=== PATIENT | male | born 1935 | race Caucasian/White ===

== ENCOUNTER → 2016-12-16 | Outpatient (CLI) | payer OTHER ==
[~2016-12-16] MED LIST: ALFU1TAB2 PO; ASPI81TA28 PO; ATEN-175 PO; ATOR10TA82 PO; BENA1TAB53 PO; CHOL20007 PO; CYCL5TAB PO; ESOM20CA PO; FINA5TAB4 PO; FLUT0.0529 NAE; GLC/500 PO; GLYB5TAB8 PO; HMLI SC; INSDGI SC; INSU100I2 SQ; INSU3INJ3 SQ; LISI40TA PO; MELO7.5T6 PO; NRV/5 PO; NXM/40 PO; OMEP1POW2 PO; TAMS0.4C38 PO
--- NOTE | 2016-12-16 16:39 | DIAGNOSTIC IMAGING REPORT ---
LUMBAR SPINE 5 VIEWS CLINICAL HISTORY: Low back pain. FINDINGS: 5 views of the lumbar spine are correlated with abdominal CT dated 09/10/2014. The skeletal structures are osteopenic. There is no radiographic evidence of fracture or malalignment. Vertebral body height is maintained throughout the lumbar spine. There is minimal anterolisthesis at L3-L4 and minimal retrolisthesis at L4-L5. Alignment is otherwise preserved. The transverse and spinous processes appear intact. There is no evidence of spondylolysis. Anterior osteophytes are seen throughout. Advanced facet arthropathy is seen in the mid to lower lumbar region. Mild degenerative disc space narrowing is seen at all levels. The visualized sacrum and bony pelvis appear intact. Sclerotic change is noted in the sacroiliac joints. There is a nonobstructed abdominal bowel gas pattern, noting moderate colonic fecal retention. Advanced atherosclerotic calcification is seen in the abdominal aorta. IMPRESSION: 1. No acute bony abnormality is identified in the lumbosacral spine. 2. Osteopenia and spondylotic change as above. Dictated: 12/16/2016 4:24 PM Transcribed: 12/16/2016 4:38 PM [email or web address]_[email or web address] Electronically signed by: Chidi Nunez M.D. 12/16/2016 4:59 PM Dictated Date/Time: 12/16/2016 4:24 PM
== END | disposition home or self-care (01) ==
LOC: C.RADBC 16:06
PROVIDERS: ATTEND Family Medicine
DX: M54.5 Low back pain (principal)

== ENCOUNTER 2017-04-28 19:01 | Emergency (ER) | payer OTHER, BC ==
[~2017-04-28] VITALS: Ht 177.8 cm; Wt 100.0 kg
[~2017-04-28 19:01] MED LIST changes: -ALFU1TAB2 PO; -ASPI81TA28 PO; -ATOR10TA82 PO; +BENA1TAB19 PO; -BENA1TAB53 PO; -CHOL20007 PO; -CYCL5TAB PO; -ESOM20CA PO; -INSU100I2 SQ; -INSU3INJ3 SQ; -NRV/5 PO
[2017-04-28 19:06] VITALS: TEMP 36.6; Ht 177.8 cm; Wt 100.0 kg
[2017-04-28] MEDS ORDERED: INSDGI SC (19:34)
[2017-04-28] MEDS ORDERED: SODIUM CHLORIDE 0.9% 1000ML 1,000 ML IV STA (19:42)
[2017-04-28] MEDS ORDERED: SODIUM CHLORIDE 0.9% 1000ML 250 ML IV STA (19:42)
--- NOTE | 2017-04-28 19:48 | EMERGENCY ROOM VISIT NOTE ---
History Report prepared by [place]: Vinnie Aparicio Under the Supervision of: Dr. Renzo Mcguire M.D. First contact with patient: 19:31 Chief Complaint: HYPERTENSION Stated Complaint: UNSTEADY GAIT, CHEST PAIN,NAUSEA, BP 175/110 History of Present Illness The patient is a 81 year old male who presents to the Emergency Room with complaints of hypertension that began a couple hours ago. His pressure is currently 179/88. At this time, the patient was on his computer when he began to feel strange. He then became dizzy and unsteady on his feet like he was drunk. He is listing to his right. He has occasional problems with his equilibrium with standing quickly, but he did not do this today. He denies any vision problems, falls, of head trauma. He denies any unilateral weakness. He notes that he had epigastric pain earlier, but he took a Zantac and it seems to be helping. He has a history of GERD. Source of History: patient Onset: 3 hours ago Position: other (global) Symptom Intensity: 179/88 Quality: other (Hypertension) Timing: waxes/wanes Associated Symptoms: + chest pain (epigastric), No LOC, No headache, No weakness Note: He is dizzy and has an unsteady gait. Review of Systems See HPI for pertinent positives & negatives. A total of 10 systems reviewed and were otherwise negative. Past Medical & Surgical Medical Problems: (1) Diabetes (2) GERD (gastroesophageal reflux disease) (3) History of bronchitis (4) History of hypertension (5) HTN (hypertension) Old medical records were reviewed. Nurse's notes were reviewed and I agree with. Family History Cancer Diabetes mellitus Hypertension Social History Smoking Status: Never Smoker Alcohol Use: none Drug Use: none Marital Status: Housing Status: lives with family Occupation Status: retired Current/Historical Medications Scheduled Alfuzosin Hcl (Alfuzosin Hcl Er), 1 TAB PO DAILY Amlodipine Besylate (Amlodipine Besylate), 5 MG PO DAILY Aspirin (Aspirin Ec), 81 MG PO DAILY Atenolol (Tenormin), 100 MG PO DAILY Atorvastatin (Lipitor), 10 MG PO DAILY Cholecalciferol (Vitamin D3), 1 TAB PO DAILY Cyclobenzaprine Hcl (Flexeril), 5 MG PO HS Esomeprazole Magnesium (Nexium), 20 MG PO DAILY Finasteride (Proscar), 5 MG PO DAILY Insulin Detemir (Levemir Flextouch), 20 UNITS SQ Q12 Insulin Lispro (Human) (Humalog Kwikpen), 15-20 UNITS SQ DAILY Lisinopril (Zestril), 40 MG PO DAILY Allergies Coded Allergies: Diazepam (Verified Allergy, Intermediate, rash, 01/13/14) Morphine (Verified Allergy, Intermediate, hallucinations, 01/13/14) Physical Exam Vital Signs Date Time Temp Pulse Resp B/P (MAP) Pulse Ox O2 Delivery O2 Flow Rate FiO2 04/28/17 22:59 73 16 161/80 98 Room Air 04/28/17 22:22 72 16 167/83 96 Room Air 04/28/17 20:30 73 16 158/90 96 Room Air 04/28/17 19:25 69 04/28/17 19:06 36.6 69 18 169/80 97 Room Air Physical Exam General: Non-ill appearing older male in no acute distress. HEENT: Normal cephalic atraumatic. Pupils are equal round and reactive to light. Extraocular movements are intact. Oropharynx is pink with moist mucous membranes. No swelling of the mouth lips or tongue. Neck: Supple with a midline trachea. No meningeal signs or stiffness, no JVD or bruits. No Stridor. Chest: Clear to auscultation bilaterally. No wheezes or rhonchi. No increased work of breathing. Heart: regular rate and rhythm. Abdomen: Soft nontender, nondistended without rebound guarding or rigidity. Extremities: No cyanosis clubbing or edema. No calf tenderness or assymetry Spine/Back. Non tender to palpation. No CVA tenderness Skin: Good turgor without rashes. Neurologic exam: GCS 15. Awake, alert, and oriented x3. Cranial nerves two through 12 are intact. Motor and sensation are intact and symmetrical throughout. Finger to nose intact. No pronator drift. Chronic intention tremor to the LUE. Medical Decision & Procedures ER Provider Diagnostic Interpretation: Radiology results as stated below per my review and radiologist interpretation: CT OF THE HEAD WITHOUT CONTRAST CLINICAL HISTORY: Dizziness. COMPARISON STUDY: No previous studies for comparison. CT DOSE: 655.73 mGy.cm TECHNIQUE: Helical axial images of the head were obtained without IV contrast. Automated exposure control was utilized for the study. A dose lowering technique was utilized adhering to the principles of ALARA. FINDINGS: No acute intracranial hemorrhage, midline shift or mass effect is present. Ventricular system is normal for age. The basilar cisterns are patent. There are no extra-axial collections. Huerta-white differentiation is maintained. Mild white matter hypodensity suggests small vessel disease. There are no findings to suggest acute dural sinus thrombosis or acute territorial infarct. There are no significant calvarial abnormalities. Trace fluid within left mastoid air cells is noted. IMPRESSION: 1. No acute intracranial findings. 2. Trace fluid within the left mastoid air cells. Electronically signed by: Zaid Jhaveri M.D. 04/28/2017 8:32 PM Dictated Date/Time: 04/28/2017 8:30 PM CHEST ONE VIEW PORTABLE CLINICAL HISTORY: Chest pain. Nausea. COMPARISON STUDY: Chest radiograph February 07, 2014. FINDINGS: Lung volumes are normal. There is no consolidation to suggest pneumonia. There is no evidence of pulmonary edema. Cardiomediastinal silhouette is stable. No pneumothorax or pleural effusion is present. IMPRESSION: No acute cardiopulmonary findings. Electronically signed by: Zaid Jhaveri M.D. 04/28/2017 8:17 PM Dictated Date/Time: 04/28/2017 8:16 PM Laboratory Results 04/28/17 19:30 Red Blood Count 4.40, Mean Corpuscular Volume 85.9, Mean Corpuscular Hemoglobin 31.6, Mean Corpuscular Hemoglobin Concent 36.8, Mean Platelet Volume 10.0, Neutrophils (%) (Auto) 67.1, Lymphocytes (%) (Auto) 16.6, Monocytes (%) (Auto) 9.5, Eosinophils (%) (Auto) 5.6, Basophils (%) (Auto) 0.3, Neutrophils # (Auto) 4.66, Lymphocytes # (Auto) 1.15, Monocytes # (Auto) 0.66, Eosinophils # (Auto) 0.39, Basophils # (Auto) 0.02 04/28/17 19:30 Test 04/28/17 19:30 04/28/17 19:42 04/28/17 20:35 White Blood Count 6.94 K/uL (4.8-10.8) Red Blood Count 4.40 M/uL (4.7-6.1) Hemoglobin 13.9 g/dL (14.0-18.0) Hematocrit 37.8 % (42-52) Mean Corpuscular Volume 85.9 fL (80-100) Mean Corpuscular Hemoglobin 31.6 pg (25-34) Mean Corpuscular Hemoglobin Concent 36.8 g/dl (32-36) Platelet Count 171 K/uL (130-400) Mean Platelet Volume 10.0 fL (7.4-10.4) Neutrophils (%) (Auto) 67.1 % Lymphocytes (%) (Auto) 16.6 % Monocytes (%) (Auto) 9.5 % Eosinophils (%) (Auto) 5.6 % Basophils (%) (Auto) 0.3 % Neutrophils # (Auto) 4.66 K/uL (1.4-6.5) Lymphocytes # (Auto) 1.15 K/uL (1.2-3.4) Monocytes # (Auto) 0.66 K/uL (0.11-0.59) Eosinophils # (Auto) 0.39 K/uL (0-0.5) Basophils # (Auto) 0.02 K/uL (0-0.2) RDW Standard Deviation 41.6 fL (36.4-46.3) RDW Coefficient of Variation 13.2 % (11.5-14.5) Immature Granulocyte % (Auto) 0.9 % Immature Granulocyte # (Auto) 0.06 K/uL (0.00-0.02) Prothrombin Time 10.2 SECONDS (9.0-12.0) Prothromb Time International Ratio 1.0 (0.9-1.1) Activated Partial Thromboplast Time 25.5 SECONDS (21.0-31.0) Partial Thromboplastin Ratio 1.0 Anion Gap 8.0 mmol/L (3-11) Est Creatinine Clear Calc Drug Dose 50.7 ml/min Estimated GFR () 55.0 Estimated GFR (Non- 47.5 BUN/Creatinine Ratio 11.8 (10-20) Calcium Level 8.2 mg/dl (8.5-10.1) Total Bilirubin 0.6 mg/dl (0.2-1) Direct Bilirubin 0.2 mg/dl (0-0.2) Aspartate Amino Transf (AST/SGOT) 9 U/L (15-37) Alanine Aminotransferase (ALT/SGPT) 18 U/L (12-78) Alkaline Phosphatase 138 U/L (45-117) Total Creatine Kinase 49 U/L (39-308) Creatine Kinase MB 1.1 ng/ml (0.5-3.6) Total Protein 7.5 gm/dl (6.4-8.2) Albumin 3.4 gm/dl (3.4-5.0) Lipase 149 U/L (73-393) Beta-Hydroxybutyric Acid 1.10 mg/dL (0.2-2.81) Creatine Kinase MB Ratio (0-3.0) Bedside Troponin I < 0.030 ng/ml (0-0.045) Laboratory studies as stated above per my review. Medications Administered Medications (Trade) Dose Ordered Sig/Fely Route Start Time Stop Time Status Last Admin Dose Admin Sodium Chloride 250 ml @ 999 mls/hr Q16M STAT IV 04/28/17 19:42 04/28/17 19:57 DC 04/28/17 20:34 999 MLS/HR Sodium Chloride 1,000 ml @ 100 mls/hr Q10H STAT IV 04/28/17 19:42 04/29/17 00:23 DC 04/28/17 21:31 100 MLS/HR ECG Indication: other (HTN) Rate (beats per minute): 74 Rhythm: normal sinus Findings: no acute ischemic change, no ectopy ED Course 1930: Past medical records reviewed. The patient was evaluated in room A9B, and a complete history and physical examination were performed. 1941: Ordered Sodium Chloride 1000 ml @ 100 mls/hr IV, Sodium Chloride 250 ml @ 999 mls/hr IV 0: Upon reevaluation, the patient is resting. I discussed the results and treatment plan with him. He verbalized agreement of the treatment plan. The patient was discharged home. Medical Decision Differentials include, but are not limited to; vertigo, cardiac disease, arrhythmia, anemia, electrolyte or metabolic abnormality, CVA, and TIA. This patient comes in as described above he had an episode where he felt dizzy. He may also had some mild chest pain which he describes more like reflux. He did eat some food this evening and thinks he sent that off. He does tend to get dizzy at walking with a cane. He feeling better at present his blood pressure is also elevated at home during his stay, it did come down without treatment. He has a normal neurologic exam. He has no cerebellar signs. His normal finger to nose. EKG was obtained does not show anything to suggest acute coronary syndrome or arrhythmia. He has no acute electrode or metabolic abnormalities with exception of an elevated blood sugar in the 300s. He has no acidosis. He was able ambulate with his cane like at baseline. I talked to the patient's at length and told him we could observe him overnight but He strongly desires to go home as does his . I think it is reasonable discharge him home. I don't think this is likely acute cardiac or neurologic event but I encouraged him to come back if: chest pain, shortness of breath, numbness or weakness, any new problems or concerns. Medication Reconcilliation Current Medication List: was personally reviewed by me Blood Pressure Screening Patient's blood pressure: Elevated blood pressure Blood pressure disposition: Elevated BP felt to be situational Impression Primary Impression: Dizziness Additional Impressions: Hypertension Precordial chest pain Scribe Attestation The scribe's documentation has been prepared under my direction and personally reviewed by me in its entirety. I confirm that the note above accurately reflects all work, treatment, procedures, and medical decision making performed by me. Departure Information Dispostion Home / Self-Care Referrals Sydnee Castro ,Abigail.[email or web address]. Forms HOME CARE DOCUMENTATION FORM, IMPORTANT VISIT INFORMATION, WORK / SCHOOL INSTRUCTIONS Patient Instructions My [facility] Additional Instructions Rest Drink plenty of fluids Be careful when getting up and down REturn if:worsening of symptoms, chest pain, numbness or weakness, fever, increasing pain, any new problems or concerns Follow-up with your doctor tommorrow for recheck Problem Qualifiers
[2017-04-28] MEDS ORDERED: CYCL5TAB PO (20:05)
[2017-04-28] MEDS ORDERED: ATOR10TA88 PO (20:05)
[2017-04-28] MEDS ORDERED: ALFU1TAB2 PO (20:05)
[2017-04-28] MEDS ORDERED: ESOM20CA PO (20:09)
[2017-04-28] MEDS ORDERED: INSU3INJ3 SQ (20:09)
[2017-04-28] MEDS ORDERED: INSU100I2 SQ (20:09)
[2017-04-28] MEDS ORDERED: CHOL20007 PO (20:09)
[2017-04-28 20:10] LABS: BASO % 0.3 %; BASO ABS # 0.02 K/uL (0-0.2); COMPLETE YES; EOS % 5.6 %; HEMATOCRIT 37.8 % (42-52); IG% 0.9 %; LYMPH % 16.6 %; LYMPH ABS # 1.15 K/uL (1.2-3.4); MEAN CELL VOLUME 85.9 fL (80-100); MEAN CORPUSCULAR HEMOGLOBIN 31.6 pg (25-34); MEAN CORPUSCULAR HGB CONC 36.8 g/dl (32-36); MONO % 9.5 %; NEUT % 67.1 %; PLATELET COUNT 171 K/uL (130-400); WHITE BLOOD COUNT 6.94 K/uL (4.8-10.8)
--- NOTE | 2017-04-28 20:18 | DIAGNOSTIC IMAGING REPORT ---
CHEST ONE VIEW PORTABLE CLINICAL HISTORY: Chest pain. Nausea. COMPARISON STUDY: Chest radiograph February 07, 2014. FINDINGS: Lung volumes are normal. There is no consolidation to suggest pneumonia. There is no evidence of pulmonary edema. Cardiomediastinal silhouette is stable. No pneumothorax or pleural effusion is present. IMPRESSION: No acute cardiopulmonary findings. Electronically signed by: Zaid Jhaveri M.D. 04/28/2017 8:17 PM Dictated Date/Time: 04/28/2017 8:16 PM
[2017-04-28 20:20] LABS: BUN/CREATININE RATIO 11.8 (10-20); CALCIUM 8.2 mg/dl (8.5-10.1); CREATININE 1.4 mg/dl (0.60-1.40)
[2017-04-28 20:30] LABS: BETA-HYDROXYBUTYRATE 1.1 mg/dL (0.2-2.81); CKMB/CK RATIO 2.2 (0-3.0)
--- NOTE | 2017-04-28 20:33 | DIAGNOSTIC IMAGING REPORT ---
CT OF THE HEAD WITHOUT CONTRAST CLINICAL HISTORY: Dizziness. COMPARISON STUDY: No previous studies for comparison. CT DOSE: 655.73 mGy.cm TECHNIQUE: Helical axial images of the head were obtained without IV contrast. Automated exposure control was utilized for the study. A dose lowering technique was utilized adhering to the principles of ALARA. FINDINGS: No acute intracranial hemorrhage, midline shift or mass effect is present. Ventricular system is normal for age. The basilar cisterns are patent. There are no extra-axial collections. Huerta-white differentiation is maintained. Mild white matter hypodensity suggests small vessel disease. There are no findings to suggest acute dural sinus thrombosis or acute territorial infarct. There are no significant calvarial abnormalities. Trace fluid within left mastoid air cells is noted. IMPRESSION: 1. No acute intracranial findings. 2. Trace fluid within the left mastoid air cells. Electronically signed by: Zaid Jhaveri M.D. 04/28/2017 8:32 PM Dictated Date/Time: 04/28/2017 8:30 PM
[2017-04-28 20:39] LABS: PROTHROMBIN TIME (PATIENT) 10.2 SECONDS (9.0-12.0)
[2017-04-28] MEDS ORDERED: ASPI81TA28 PO (21:25)
[2017-04-28] MEDS ORDERED: NRV/5 PO (21:25)
[2017-04-28 22:59] VITALS: BP 161/80; PULSE 73; O2SAT 98
== END 2017-04-28 23:08 | disposition home or self-care (01) ==
LOC: C.EDB 19:02 → C.EDA 23:08
DX: I10 Essential (primary) hypertension (principal); R42 Dizziness and giddiness; R07.2 Precordial pain; K21.9 Gastro-esophageal reflux disease without esophagitis; E11.9 Type 2 diabetes mellitus without complications; Z79.82 Long term (current) use of aspirin; Z79.4 Long term (current) use of insulin; Z83.3 Family history of diabetes mellitus; Z82.49 Family history of ischemic heart disease and other diseases of the circulatory system

== ENCOUNTER 2020-02-03 23:04 | Inpatient (IN) ==
--- NOTE | 2020-02-03 23:45 | Emergency Department Note ---
ED Visit Note Physician Evaluation Note: I have personally evaluated and examined this patient. I agree with assessment and plan of Pamela Aldana PA-C. Patient with several days worsening confusion, weakness and hallucinations. notes some stuttering speech the last few days as well. Waxing and waning. Started a day after he began Baclofen for some back discomfort bilaterally. Back pain improving. Recent US reportedly with cysts on kidneys without evidence stone. Patient with history TIA and on ASA 81mg daily. Patient without fall, trauma, injuries. Labs with mild hyperglycemia and renal insufficiency. CT head/abdo unremarkable. Seems likely this is medication related though given continued symptoms will have hospitalist bring in for further management/treatment/evaluation. Avelino Aguilar MD
[2020-02-04 00:13] LABS: Basophils # (auto) 0.02 K/uL (0-0.2); Basophils % (auto) 0.2 %; Eosinophils # (auto) 0.26 K/uL (0-0.5); Eosinophils % (auto) 3.2 %; Hematocrit (blood only) 35.7 % (42-52); Hemoglobin 12.7 g/dL (14.0-18.0); Immature Granulocytes # (auto) 0.06 K/uL (0.00-0.02); Immature Granulocytes % (auto) 0.7 %; Lymphocytes # (auto) 1.11 K/uL (1.2-3.4); Lymphocytes % (auto) 13.7 %; Mean Corpuscular Hemoglobin 31.6 pg (25-34); Mean Corpuscular Hgb Conc 35.6 g/dL (32-36); Mean Corpuscular Volume 88.8 fL (80-100); Mean Platelet Volume 9.7 fL (7.4-10.4); Monocytes % (auto) 12.3 %; Neutrophils # (auto) 5.66 K/uL (1.4-6.5); Neutrophils % (auto) 69.9 %; Platelet Count 191 K/uL (130-400); RDW Standard Deviation 41.7 fL (36.4-46.3); Red Blood Count 4.02 M/uL (4.7-6.1); White Blood Count 8.11 K/uL (4.8-10.8)
[2020-02-04 00:20] LABS: Appearance Urine Clear (Clear); Bacteria Urine Automated Negative (Negative); Bilirubin Urine Negative (Negative); Blood Urine Negative (Negative); Color Urine Yellow; Glucose Urine UA 3+ (Negative); Ketones Urine Negative (Negative); Leukocyte Esterase Urine Trace (Negative); Nitrite Urine Negative (Negative); Protein Urine 2+ (Negative); RBC Urine Automated 0-4 /hpf (0-4); Specific Gravity Urine 1.022 (1.000-1.030); Urobilinogen Urine Negative (Negative); pH Urine 5.5 (4.5-7.5)
[2020-02-04 00:45] LABS: Amphetamines+Metham, Urine Neg (Neg); Barbiturates, Urine Neg (Neg); Benzodiazepine, Urine Neg (Neg); Cocaine, Urine Neg (Neg); MDMA (Ecstacy), Urine Neg (Neg); Methadone, Urine Neg (Neg); Opiate, Urine Neg (Neg); Phencyclidine, Urine Neg (Neg)
[2020-02-04 00:56] LABS: Alanine Aminotransferase 23 U/L (12-78); Albumin Globulin Ratio 0.9 (0.9-2); Albumin Level 3.5 gm/dl (3.4-5.0); Alkaline Phosphatase 132 U/L (45-117); Aspartate Aminotransferase 15 U/L (15-37); BUN Creatinine Ratio 14.1 (10-20); Bilirubin,Total 0.4 mg/dl (0.2-1); Blood Urea Nitrogen 28 mg/dl (7-18); Calcium 7.8 mg/dl (8.5-10.1); Carbon Dioxide 25 mmol/L (21-32); Chloride 110 mmol/L (98-107); Est GFR (African American) 35.2; Est GFR (Non-African American) 30.4; Glucose 332 mg/dl (70-99); Magnesium 1.9 mg/dl (1.8-2.4); Potassium 4.6 mmol/L (3.5-5.1); Sodium 142 mmol/L (136-145); Total Protein 7.5 gm/dl (6.4-8.2); Troponin I < 0.015 ng/ml (0-0.045)
[2020-02-04] MEDS ORDERED: SODIUM CHLORIDE 0.9% 1000ML 1,000 ML IV ONE (00:58)
[2020-02-04 01:27] LABS: Beta-Hydroxybutyrate 1.24 mg/dl (0.2-2.81)
--- NOTE | 2020-02-04 02:19 | History & Physical Report ---
Date of Service February 04, 2020 Assessment & Plan (1) Toxic encephalopathy: Barney is an 84-year-old male with a past medical history of insulin- dependent type 2 diabetes, stage III chronic kidney disease, MGUS, GERD, BPH, and hypertension who presents with worsening confusion and altered mental status after starting baclofen 3 days prior to admission. Altered mental status suspect 2/2 toxic encephalopathy of baclofen Patient with abnormal speech prosody, but alert and oriented x3 and thought process is goal-directed. No focal neurologic deficits and otherwise normal neurologic exam CThead with no acute findings, symptoms have been present for greater than 48 hours. Low suspicion for stroke pathology Urine tox negative, UA does not appear infected, CO2 normal Hold baclofen, fluid support for mild ANA as below CMP daily Follow clinically. Avoid sedating/narcotic medications Back pain 2/2 musculoskeletal strain Hold baclofen Avoid narcotics at this time 2/2 potential to worsen mental status Tylenol 500 mg every 4 hours as needed Lidocaine patch, alternate with K pad Type 2 diabetes mellitus On insulin therapy A1c last month 7.2 -Glucose on admission 331, no increased anion gap. Patient missed his evening coverage Aspart sliding scale, goal 1001 40, correction factor 30, carb ratio 1-10 Glargine 13 units twice daily BSG check with coverage once on floor Fluid support as below Glucose checks AC/at bedtime Beta hydroxybutyrate pending but low suspicion for HHS/DKA ANA on CKD Creatinine acutely elevated to 1.99 on admission from baseline of approximately 1.5 [employer] Lasix and Spironolactone held Received 1 L normal saline in ED NSS 100 overnight BMP every morning GERD Convert Nexium to Protonix HLD/HTN Continue atorvastatin 20 mg daily Continue amlodipine 10 mg daily Continue metoprolol succinate 50 mg daily BPH with LUTS Continue Flomax 0.4 mg daily Disposition: Obs to Med/surgical Diet: Carb consistent DVT prophylaxis: SCDs, heparin 5000 every 12 CODE STATUS: Full code, discussed with patient and (2) Type II diabetes mellitus with complication: (3) Stage III chronic kidney disease: (4) MGUS (monoclonal gammopathy of unknown significance): (5) Hiatal hernia: (6) GERD without esophagitis: (7) BPH with obstruction/lower urinary tract symptoms: (8) HTN (hypertension): History of Present Illness Chief Complaint: [facility] Primary Care Provider: Rodríguez Rodriges DO Barney is an 84-year-old male with a past medical history of insulin-dependent type 2 diabetes, stage III chronic kidney disease, MGUS, GERD, BPH, and hypertension who presents with worsening confusion and altered mental status after starting baclofen 3 days prior to admission. Barney is seen at the bedside with his present. They report that Barney was seen by nephrology for left back/flank pain on (3 days prior to admission). He had been lifting and twisting prior, and was focally tender to palpation. He was seen by nephrology who felt his pain was not consistent with renal disease, and he was prescribed baclofen for muscle spasm/pain. He took 2 doses of baclofen 10 mg on , 3 doses on Wednesday, and 1 dose (his last dose) Wednesday morning at 8 AM prior to admission. Over this time. He became increasingly confused and patient reports it feels like "being drunk ". His reports that he was having difficulty articulating himself, but did not appear to have any focal weakness. He has a history of TIA in 1989, so they were concerned about potential stroke. He was getting worse up until mid Wednesday, they report he seems to be improving at time of ER evaluation. He denies hallucinations, falls, presyncope, syncope, chest pain. He is at type II diabetic, and notes that his blood sugar earlier in the evening was 332 which is likely because he ate and did not cover with his short-term insulin. His reports that he normally misses his midday insulin dose and often will not eat at that time because he is busy. Medical history: Reviewed Surgical history: Reviewed Medications: Reviewed Allergies: Reviewed Social: Remote rare cigar use, otherwise no tobacco use. Denies alcohol and recreational drug use. Lives at home with his . CODE STATUS: Full code, discussed with patient and his Allergies Allergy/AdvReac Type Severity Reaction Status Date / Time diazepam Allergy Intermediate rash Verified 02/03/20 23:42 morphine Allergy Intermediate hallucinati Verified 02/03/20 23:42 ons Home Medications Home Medications Medication Instructions Recorded Confirmed Type blood sugar diagnostic #10 ea 01/05/19 01/31/20 History blood sugar diagnostic #10 ea 01/05/19 01/31/20 History albuterol sulfate 90 mcg/actuation See Rx Instructions INHALATION Q4H 03/28/19 02/03/20 History aerosol inhaler PRN gm aspirin 81 mg tablet 81 mg PO DAILY tab 03/28/19 02/03/20 History esomeprazole magnesium 20 mg 20 mg PO DAILY cap 03/28/19 02/03/20 History capsule,delayed release finasteride 5 mg tablet 5 mg PO DAILY #90 tab 03/28/19 02/03/20 History lisinopril 40 mg tablet 40 mg PO DAILY #90 tab 03/28/19 02/03/20 History diaper,brief,adult,disposable #60 ea 05/02/19 01/31/20 Rx insulin lispro 100 unit/mL 25 units SUBCUT QAM #30 ml 12/08/19 02/03/20 Rx subcutaneous pen amlodipine 10 mg tablet 10 mg PO DAILY #90 tab 12/28/19 02/03/20 Rx ferrous fumarate-vitamin C 1 tab PO DAILY PRN 12/28/19 02/03/20 History fluticasone propionate 44 2 puffs INH DAILY gm 12/28/19 02/03/20 History mcg/actuation HFA aerosol inhaler furosemide 40 mg tablet 40 mg PO DAILY #90 tab 12/28/19 02/03/20 Rx metoprolol succinate 50 mg 50 mg PO DAILY tab 12/28/19 02/03/20 History tablet,extended release 24 hr multivitamin 1 tab PO DAILY 12/28/19 02/03/20 History sertraline 50 mg tablet 50 mg PO DAILY 12/28/19 02/03/20 History spironolactone 25 mg tablet 25 mg PO DAILY #90 tab 01/02/20 02/03/20 Rx atorvastatin 20 mg tablet 20 mg PO QPM #90 tab 01/15/20 02/03/20 Rx insulin glargine 100 unit/mL (3 See Rx Instructions SQ .COMPLEX 01/15/20 02/03/20 Rx mL) subcutaneous pen #30 ml tamsulosin 0.4 mg capsule 0.8 mg PO DAILY #60 cap 01/15/20 02/03/20 Rx terbinafine HCl 250 mg tablet 250 mg PO DAILY #42 tab 01/15/20 02/03/20 Rx varicella-zoster [id number] (PF) 50 0.5 ml IM .COMPLEX #1 ea 01/15/20 01/31/20 Rx mcg/0.5 mL IM susp, kit baclofen 10 mg tablet 10 mg PO TID PRN #90 tab 02/01/20 02/03/20 Rx Past Med/Surg History Medical History Anemia (Inactive) 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 (Inactive) Cardiomegaly (Inactive) Erectile dysfunction (Chronic) Fatty liver (Inactive) GERD without esophagitis (Chronic) Hiatal hernia (Chronic) HTN (hypertension) (Chronic) Low back pain (Inactive) MGUS (monoclonal gammopathy of unknown significance) (Chronic) Osteopenia of spine (Inactive) Stage III chronic kidney disease (Chronic) Type II diabetes mellitus with complication (Chronic) Vitamin D deficiency (Chronic) Surgical History History of appendectomy History of cataract surgery History of incisional hernia repair History of inguinal hernia repair History of laminectomy History of lumpectomy History of partial colectomy Social History Preferred Language: Portuguese Professor Of Counseling Required: No Beliefs That Will Affect Care: None marital status: Current Living Situation: Spouse current occupational status: retired current occupation: Lives 6 months in [place]. Former [employer]. [place] [employer] Other Information That Helps Us Care for You: No Feels Safe at Home: Yes Safety Concerns: Feels Safe At This Time Smoking Status: Former smoker Tobacco Type: cigarettes, pipe and cigars ; Age Started Using Tobacco: 19 ; Age Quit Using Tobacco: 19 ; Do You Dip or Chew Tobacco: No ; Second Hand Exposure: No ; Tobacco Cessation Education Requested by Patient: No Hx Alcohol Use: No Hx Substance Use: No Childhood Exposure to Second-Hand Smoke: No Dental Care, Regularly: Yes Physical Activity Frequency: Does not Exercise Seatbelt Use: sometimes Sunscreen Use: No Review of Systems Review of Systems: Constitutional: Denies fever, chills, malaise. Endorses 'drunk-like feeling' Eyes: Denies double vision, vision change ENT: Denies ear pain, sore throat, congestion Cardiovascular: Denies chest pain, chest pressure, palpitations, extremity swelling Respiratory: Denies shortness of breath, cough, sputum production, difficulty breathing. Endorses intermittent wheezing Gastrointestinal: Denies abdominal pain, nausea, vomiting, constipation, diarrhea. Endorses abdominal bloating Genitourinary: Denies pain with urination, urinary urgency, urinary frequency Musculoskeletal: Denies weakness, joint aches/pain. Endorses L flank pain. Integumentary:Denies rash, lesions, bruising Neurological: Denies headache, numbness, tingling, focal weakness Physical Exam Physical Exam: General: A&Ox3. NAD. Cooperative. Speech with abnormal prosody, but goal directed. HEENT: Atraumatic, normocephalic. See neuro exam below. Pulm: Intermittent upper airway wheeze, otherwise CTAB A&P. -rales, -rhonchi. Symmetrical chest rise. No increase work of breathing. No respiratory distress. Cardiac: RRR, -mrg. Radial pulses intact and symmetrical. Abdominal:Softly distended, typanitic to percussion. BS present. CN II: Visual [place] are full to confrontation. Pupils are equal and react to light and accomidation. Visual acuity grossly intact. CN III, IV, : At primary gaze, there is no eye deviation. EoM intact without nystagmus. No visual field cuts. CN V: Facial sensation is intact to soft touch in all 3 divisions bilaterally. CN VII: No facial asymmetry, full strength to eyebrow raise, smile, eye close, and cheek puff. CN VII: Hearing is grossly intact. CN IX, X: Palate elevates symmetrically. Phonation is normal without dysarthria, speech with abnormal prosody as above. CN XI: Head turning and shoulder shrug are intact CN XII: Tongue protrudes midline. Sensory: Light touch intact in upper and low extremities without deficit or asymmetry. Strength: RUE: elbow flexion/extension, finger flexion/extension, service trainer strength, interosseous 5/5 LUE: elbow flexion/extension, finger flexion/extension, service trainer strength, in terosseous 5/5 RLE: Hip flexion, ankle plantar flexion/dorsiflexion 5/5 LLE: Hip flexion, ankle plantar flexion/dorsiflexion 5/5 Coordination: Rapid alternating movements and fine finger movements are intact. Results & Data Results & Data ([facility]) Vital Signs (Past 12 Hours) Vital Signs Temp Pulse Resp BP Pulse Ox 07/19/20 01:00 81 18 162/82 H 97 02/04/20 00:30 73 20 140/78 98 02/04/20 00:12 80 20 172/85 H 97 02/03/20 23:06 36.8 C 85 20 155/77 H 95 Code Status & VTE Plan VTE Prophylaxis Plan VTE Prophylaxis will be ordered: Yes Supervising Physician Co-Signing Physician Notes Attending addendum: I have physically seen this patient, have supervised the medical residents activities, and agree with the H&P unless as otherwise noted. Assessment and Plan: Toxic encephalopathy/baclofen adverse reaction- CT of head negative. No further neuroimaging needs to be performed. Urine drug screen negative IV fluids. Follow clinical examination Diabetes mellitus type 2- Insulin glargine 13 units subcu twice daily Placed on Accu-Cheks before meals and at bedtime with NovoLog coverage per scale A1c last month was 7.2 IV fluids as noted above. ANA on CKD- Hold diuretics overnight, furosemide and spironolactone. Status post 1 L normal saline in ED, will continue NSS at 100 mils per hour overnight. Repeat BMP in the a.m. Hyperlipidemia- Continue atorvastatin 40 mg daily Check a fasting lipid panel if not done within the past 6 months Hypertension- Continue continue amlodipine 10 mg daily and metoprolol succinate ER 50 mg daily with hold parameters Remaining orders and notations as noted. Resident Activity Tracking Resident Involvement: Resident Care Provided Care Provided: Adult Hospital Medicine (1) HTN (hypertension) Hypertension type: essential hypertension Qualified Code(s): I10 - Essential (primary) hypertension
[2020-02-04] MEDS ORDERED: GLUCOSE 10 TABS/TUBE PO PRN (02:44)
[2020-02-04] MEDS ORDERED: DEXTROSE 50% 50 ML SYRINGE IV PRN (02:44)
[2020-02-04] MEDS ORDERED: CARBOHYDRATES FOR HYPOGLYCEMIA PO PRN (02:44)
[2020-02-04] MEDS ORDERED: ACETAMINOPHEN 325 MG TAB PO PRN (02:44)
[2020-02-04] MEDS ORDERED: ALBUTEROL HFA 8 GM INHALER INH PRN (02:44)
[2020-02-04] MEDS ORDERED: GLUCOSE 40% GEL 15 GM TUBE PO PRN (02:44)
[2020-02-04] MEDS ORDERED: GLUCAGON FOR INJ 1 MG VIAL SQ PRN (02:44)
[2020-02-04] MEDS ORDERED: FERROUS FUMARATE/ASCORBIC ACID 65 MG CAPCR PO PRN (02:44)
--- NOTE | 2020-02-04 03:15 | Emergency Department Note ---
History of Present Illness General Chief complaint: Altered Mental Status Stated complaint: ALLERGIC REACTION TO MEDICATION Time Seen by Provider: 02/03/20 23:12 Source: patient Mode of arrival: ambulatory Limitations: no limitations History of Present Illness Maximum Pain Intensity: 7 This patient is an 84-year-old male who presents to the emergency department for evaluation of altered mental status. Patient states that earlier this week, he was having some pain in the left back. He had a visit with his machine edge bander, Dr. Malave, who felt that the pain was musculoskeletal and prescribed him baclofen 10 mg. He took 2 pills 2 days ago, 3 pills yesterday and 1 pill today. Last dosage was about 14 hours ago. He and his report that over the past 1 day, he has been disoriented, off balance and hallucinating. His initially noticed some slurred speech but now states that the patient seems to be having some trouble finding his words. He has been staggering while walking and having trouble keeping his balance. He states that he is seeing things and describes this like he is "watching 10 different movies." He states that he feels like he is in slow motion. He has been sleeping for short periods of time and when he wakes up, he does not know where he is. Patient has a history of diabetes and chronic kidney disease. He has a history of TIA in 1989 with no sequelae. He denies fevers, flulike symptoms, chest pain, shortness of breath, headache, neck pain, abdominal pain, nausea/vomiting, or dysuria. He does report some frequency/urgency of urination but states this is normal for him. Home Medications Home Medications Medication Instructions Recorded Confirmed Type blood sugar diagnostic #10 ea 01/05/19 01/31/20 History blood sugar diagnostic #10 ea 01/05/19 01/31/20 History albuterol sulfate 90 mcg/actuation See Rx Instructions INHALATION Q4H 03/28/19 02/03/20 History aerosol inhaler PRN gm aspirin 81 mg tablet 81 mg PO DAILY tab 03/28/19 02/03/20 History esomeprazole magnesium 20 mg 20 mg PO DAILY cap 03/28/19 02/03/20 History capsule,delayed release finasteride 5 mg tablet 5 mg PO DAILY #90 tab 03/28/19 02/03/20 History lisinopril 40 mg tablet 40 mg PO DAILY #90 tab 03/28/19 02/03/20 History diaper,brief,adult,disposable #60 ea 05/02/19 01/31/20 Rx insulin lispro 100 unit/mL 25 units SUBCUT QAM #30 ml 12/08/19 02/03/20 Rx subcutaneous pen amlodipine 10 mg tablet 10 mg PO DAILY #90 tab 12/28/19 02/03/20 Rx ferrous fumarate-vitamin C 1 tab PO DAILY PRN 12/28/19 02/03/20 History fluticasone propionate 44 2 puffs INH DAILY gm 12/28/19 02/03/20 History mcg/actuation HFA aerosol inhaler furosemide 40 mg tablet 40 mg PO DAILY #90 tab 12/28/19 02/03/20 Rx metoprolol succinate 50 mg 50 mg PO DAILY tab 12/28/19 02/03/20 History tablet,extended release 24 hr multivitamin 1 tab PO DAILY 12/28/19 02/03/20 History sertraline 50 mg tablet 50 mg PO DAILY 12/28/19 02/03/20 History spironolactone 25 mg tablet 25 mg PO DAILY #90 tab 01/02/20 02/03/20 Rx atorvastatin 20 mg tablet 20 mg PO QPM #90 tab 01/15/20 02/03/20 Rx insulin glargine 100 unit/mL (3 See Rx Instructions SQ .COMPLEX 01/15/20 02/03/20 Rx mL) subcutaneous pen #30 ml tamsulosin 0.4 mg capsule 0.8 mg PO DAILY #60 cap 01/15/20 02/03/20 Rx terbinafine HCl 250 mg tablet 250 mg PO DAILY #42 tab 01/15/20 02/03/20 Rx varicella-zoster [id number] (PF) 50 0.5 ml IM .COMPLEX #1 ea 01/15/20 01/31/20 Rx mcg/0.5 mL IM susp, kit baclofen 10 mg tablet 10 mg PO TID PRN #90 tab 02/01/20 02/03/20 Rx Allergies Allergy/AdvReac Type Severity Reaction Status Date / Time diazepam Allergy Intermediate rash Verified 02/03/20 23:42 morphine Allergy Intermediate hallucinati Verified 02/03/20 23:42 ons Past Med/Surg History Medical History Anemia (Inactive) 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 (Inactive) Cardiomegaly (Inactive) Erectile dysfunction (Chronic) Fatty liver (Inactive) GERD without esophagitis (Chronic) Hiatal hernia (Chronic) HTN (hypertension) (Chronic) Low back pain (Inactive) MGUS (monoclonal gammopathy of unknown significance) (Chronic) Osteopenia of spine (Inactive) Stage III chronic kidney disease (Chronic) 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 Other Information That Helps Us Care for You: No Feels Safe at Home: Yes Safety Concerns: Feels Safe At This Time Smoking Status: Former smoker Tobacco Type: cigarettes, pipe and cigars ; Age Started Using Tobacco: 19 ; Age Quit Using Tobacco: 19 ; Do You Dip or Chew Tobacco: No ; Second Hand Exposure: No ; Tobacco Cessation Education Requested by Patient: No Hx Alcohol Use: No Hx Substance Use: No Childhood Exposure to Second-Hand Smoke: No Dental Care, Regularly: Yes Physical Activity Frequency: Does not Exercise Seatbelt Use: sometimes Sunscreen Use: No Review of Systems A total of 10 systems reviewed and were otherwise negative Physical Exam Vital Signs Vital Signs - 24 hr 02/03/20 23:06 02/04/20 00:12 02/04/20 00:30 Temperature 36.8 C Temperature Source Oral Pulse Rate 85 80 73 Pulse Rate from SpO2 Sensor 80 73 Respiratory Rate 20 20 20 Respiratory Effort / Characteristics Non-Labored Spontaneous Respiratory Depth Normal Blood Pressure 155/77 H 172/85 H 140/78 Blood Pressure Mean 103 115 94 Pulse Oximetry 95 97 98 Oxygen Delivery Method Room Air Room Air Sepsis Recent Fever Within 48 Hours No Sepsis New/Unexplained Change in Mental Status No Sepsis Action Taken by Nursing No Action Required 02/04/20 01:00 Temperature Temperature Source Pulse Rate 81 Pulse Rate from SpO2 Sensor 80 Respiratory Rate 18 Respiratory Effort / Characteristics Respiratory Depth Blood Pressure 162/82 H Blood Pressure Mean 118 Pulse Oximetry 97 Oxygen Delivery Method Room Air Sepsis Recent Fever Within 48 Hours Sepsis New/Unexplained Change in Mental Status Sepsis Action Taken by Nursing VITALS: Vitals are noted on the nurse's note and reviewed by myself. GENERAL: This is an 84-year-old male, in no acute distress, well-developed well- nourished. SKIN: The skin was without rashes, erythema, edema, or bruising. HEAD: Normocephalic atraumatic. EARS: External auditory canals clear, tympanic membranes pearly chiang without erythema or effusion bilaterally. EYES: Pupils equal round and reactive to light and accommodation. Extraocular movements intact. MOUTH: Mucous membranes moist. Tonsils are not enlarged. Pharynx without erythema or exudate. NECK: Supple without nuchal rigidity. No lymphadenopathy. HEART: Regular rate and rhythm without murmurs gallops or rubs. LUNGS: Clear to auscultation bilaterally without wheezes, rales or rhonchi. MUSCULOSKELETAL: Full range of motion throughout. Strength 5/5 throughout. NEURO: Patient was alert and oriented to person place and time. Patient does seem to have some trouble word-finding. Patient follows commands appropriately. Normal rapid alternating movements and finger to nose testing. Course Consultations Consultation #1: Dr. Valles - [facility] hospitalist Administered Medications Sodium Chloride (Nss 1000ml) 1,000 mls @ 80 mls/hr IV .[id number] [facility] Stop: 03/05/20 02:43 Last Admin: 02/04/20 04:52 Dose: 80 mls/hr Documented by: [id number] Insulin Aspart (Novolog Flexpen) 0 units SC ACHS MILAGROS Stop: 03/05/20 04:14 Last Admin: 02/04/20 04:51 Dose: 4 units Documented by: [id number] Cosigned by: [id number] Insulin Glargine (Lantus Solostar Pen) 13 units SC BID MILAGROS Stop: 03/05/20 04:14 Last Admin: 02/04/20 04:52 Dose: 13 units Documented by: [id number] Cosigned by: [id number] Discontinued Medications Sodium Chloride (Nss 1000ml) 1,000 mls @ 999 mls/hr IV .Q1H1M ONE Stop: 02/04/20 01:58 Last Infusion: 02/04/20 02:23 Dose: 0 mls/hr Documented by: [id number] Admin: 02/04/20 01:18 Dose: 999 mls/hr Documented by: [id number] Medical Decision Making Differential Diagnosis Infection, dehydration, metabolic abnormality, hypo/hyperglycemia, electrolyte disturbance, anemia, hypoxia, cardiac sources, intracerebral event, toxicologic, neurologic, as well as other pathologies. Home Medications Current Medication List: was personally reviewed by me Laboratory Data Attestation: I reviewed the patient's lab results. Result diagrams: 02/03/20 23:59 02/03/20 23:59 Lab Results 02/03/20 02/03/20 02/03/20 Range/Units 23:59 23:59 23:59 WBC 8.11 (4.8-10.8) K/uL RBC 4.02 L (4.7-6.1) M/uL Hgb 12.7 L (14.0-18.0) g/dL Hct 35.7 L (42-52) % MCV 88.8 (80-100) fL MCH 31.6 (25-34) pg MCHC 35.6 (32-36) g/dL RDW Std Deviation 41.7 (36.4-46.3) fL RDW Coeff of Nilesh 13.0 (11.5-14.5) % Plt Count 191 (130-400) K/uL MPV 9.7 (7.4-10.4) fL Immature Gran % (Auto) 0.7 % Neut % (Auto) 69.9 % Lymph % (Auto) 13.7 % [place] % (Auto) 12.3 % Eos % (Auto) 3.2 % Baso % (Auto) 0.2 % Neut # (Auto) 5.66 (1.4-6.5) K/uL Lymph # (Auto) 1.11 L (1.2-3.4) K/uL [place] # (Auto) 1.00 H (0.11-0.59) K/uL Eos # (Auto) 0.26 (0-0.5) K/uL Baso # (Auto) 0.02 (0-0.2) K/uL Immature Gran # (Auto) 0.06 H (0.00-0.02) K/uL Sodium 142 (136-145) mmol/L Potassium 4.6 (3.5-5.1) mmol/L Chloride 110 H (98-107) mmol/L Carbon Dioxide 25 (21-32) mmol/L Anion Gap 7.0 (3-11) BUN 28 H (7-18) mg/dl Creatinine 1.99 H (0.6-1.4) mg/dl Est Cr Clr Drug Dosing Not Reportable Est GFR ( Amer) 35.2 Est GFR (Non-Af Amer) 30.4 BUN/Creatinine Ratio 14.1 (10-20) Glucose 332 H* (70-99) mg/dl Calcium 7.8 L (8.5-10.1) mg/dl Magnesium 1.9 (1.8-2.4) mg/dl Total Bilirubin 0.4 (0.2-1) mg/dl AST 15 (15-37) U/L ALT 23 (12-78) U/L Alkaline Phosphatase 132 H (45-117) U/L Troponin I < 0.015 (0-0.045) ng/ml Total Protein 7.5 (6.4-8.2) gm/dl Albumin 3.5 (3.4-5.0) gm/dl Globulin 4.0 (2.5-4.0) gm/dl Albumin/Globulin Ratio 0.9 (0.9-2) Beta-Hydroxybutyric Acd 1.24 (0.2-2.81) mg/dl Urine Color Urine Appearance (Clear) Urine pH (4.5-7.5) Ur Specific [place] (1.000-1.030) Urine Protein (Negative) Urine Glucose (UA) (Negative) Urine Ketones (Negative) Urine Blood (Negative) Urine Nitrite (Negative) Urine Bilirubin (Negative) Urine Urobilinogen (Negative) Ur Leukocyte Esterase (Negative) Urine WBC (Auto) (0-5) /hpf Urine RBC (Auto) (0-4) /hpf U Hyaline Cast (Auto) (0-5) /lpf U Epithel Cells (Auto) (0-5) /lpf Urine Bacteria (Auto) (Negative) Urine Opiates Screen (Neg) Ur Methadone, Qual (Neg) Urine Barbiturates (Neg) Ur Phencyclidine (PCP) (Neg) U Amphetamin/Meth Scrn (Neg) MDMA (Ecstasy) Screen (Neg) U Benzodiazepines Scrn (Neg) Ur Cocaine Metabolite (Neg) U Marijuana (THC) Screen (Neg) Ethyl Alcohol mg/dL < 3.0 (0-3) mg/dl 02/04/20 02/04/20 Range/Units 00:00 00:00 WBC (4.8-10.8) K/uL RBC (4.7-6.1) M/uL Hgb (14.0-18.0) g/dL Hct (42-52) % MCV (80-100) fL MCH (25-34) pg MCHC (32-36) g/dL RDW Std Deviation (36.4-46.3) fL RDW Coeff of Nilesh (11.5-14.5) % Plt Count (130-400) K/uL MPV (7.4-10.4) fL Immature Gran % (Auto) % Neut % (Auto) % Lymph % (Auto) % [place] % (Auto) % Eos % (Auto) % Baso % (Auto) % Neut # (Auto) (1.4-6.5) K/uL Lymph # (Auto) (1.2-3.4) K/uL [place] # (Auto) (0.11-0.59) K/uL Eos # (Auto) (0-0.5) K/uL Baso # (Auto) (0-0.2) K/uL Immature Gran # (Auto) (0.00-0.02) K/uL Sodium (136-145) mmol/L Potassium (3.5-5.1) mmol/L Chloride (98-107) mmol/L Carbon Dioxide (21-32) mmol/L Anion Gap (3-11) BUN (7-18) mg/dl Creatinine (0.6-1.4) mg/dl Est Cr Clr Drug Dosing Est GFR ( Amer) Est GFR (Non-Af Amer) BUN/Creatinine Ratio (10-20) Glucose (70-99) mg/dl Calcium (8.5-10.1) mg/dl Magnesium (1.8-2.4) mg/dl Total Bilirubin (0.2-1) mg/dl AST (15-37) U/L ALT (12-78) U/L Alkaline Phosphatase (45-117) U/L Troponin I (0-0.045) ng/ml Total Protein (6.4-8.2) gm/dl Albumin (3.4-5.0) gm/dl Globulin (2.5-4.0) gm/dl Albumin/Globulin Ratio (0.9-2) Beta-Hydroxybutyric Acd (0.2-2.81) mg/dl Urine Color Yellow Urine Appearance Clear (Clear) Urine pH 5.5 (4.5-7.5) Ur Specific [place] 1.022 (1.000-1.030) Urine Protein 2+ H (Negative) Urine Glucose (UA) 3+ H (Negative) Urine Ketones Negative (Negative) Urine Blood Negative (Negative) Urine Nitrite Negative (Negative) Urine Bilirubin Negative (Negative) Urine Urobilinogen Negative (Negative) Ur Leukocyte Esterase Trace H (Negative) Urine WBC (Auto) 10-30 H (0-5) /hpf Urine RBC (Auto) 0-4 (0-4) /hpf U Hyaline Cast (Auto) 1-5 (0-5) /lpf U Epithel Cells (Auto) 10-20 H (0-5) /lpf Urine Bacteria (Auto) Negative (Negative) Urine Opiates Screen Neg (Neg) Ur Methadone, Qual Neg (Neg) Urine Barbiturates Neg (Neg) Ur Phencyclidine (PCP) Neg (Neg) U Amphetamin/Meth Scrn Neg (Neg) MDMA (Ecstasy) Screen Neg (Neg) U Benzodiazepines Scrn Neg (Neg) Ur Cocaine Metabolite Neg (Neg) U Marijuana (THC) Screen Neg (Neg) Ethyl Alcohol mg/dL (0-3) mg/dl Imaging Data Attestation: I personally reviewed and interpreted this imaging study as follows: Radiologist's Impression: CT HEAD: No acute intracranial finding. Status post bilateral cataract surgery Cavernous carotid and V4 segment vertebral artery calcifications. Radiologist: Cain Duncan MD ECG Data Attestation: I personally reviewed and interpreted this ECG as follows: Indication: + toxicologic Rate (beats per minute): 79 Rhythm: + normal sinus ECG Intervals/blocks: + Normal QRS and + Normal QT ECG ST segments: + Normal ST segments Change: no significant change Blood Pressure Blood Pressure Findings: Elevated blood pressure Blood Pressure Disposition: elevated BP felt to be situational MDM Narrative Continuous inspector set up and lay out: Order was placed for continuous inspector set up and lay out. Patient was placed on the inspector set up and lay out. Patient was noted to be in normal sinus rhythm at an initial rate of 85 bpm. The patient is an 84-year-old male who presents today complaining of altered mental status. Onset of symptoms was over 24 hours ago. Patient is able to follow commands appropriately and is alert and oriented to person place and time. He does have some difficulty with word finding and is reporting hallucinations. Labs with no leukocytosis, mild anemia, hyperglycemia and elevated creatinine. Creatinine is 1.99 which is slightly elevated from the patient's baseline. EKG is unremarkable. Alcohol and urine drug screen are negative. CT of the head is unremarkable. I suspect the patient symptoms are likely due to the baclofen use in the setting of his elderly age and renal impairment. Patient will require further monitoring as an inpatient. The case was discussed with the Health systemist service, who agreed to evaluate the patient for further care. The patient was independently evaluated by Dr. Aguilar, who agreed with my assessment and treatment plan. Impression & Plan Altered mental status, Adverse reaction to drug Discharge Plan Visit Data *Final* Discharge Date/Time: 02/04/20 02:24 Chief Complaint: Altered Mental Status Stated Complaint: ALLERGIC REACTION TO MEDICATION Other Complaint: Allergic Reaction ED Provider: Avelino Aguilar ED Midlevel Provider: Pamela Aldana Discharge Problem: Altered mental status, Adverse reaction to drug Patient Disposition: Admitted As Inpatient Discharge Instructions Interventions: ED Discharge Assessment Last Done: 02/04/20 02:24 Discharge Problem: Altered mental status Qualifiers: Altered mental status type: disorientation Qualified Code(s): R41.0 - Disorientation, unspecified Adverse reaction to drug Qualifiers: Encounter type: initial encounter Qualified Code(s): T50.905A - Adverse effect of unspecified drugs, medicaments and biological substances, initial encounter
[2020-02-04] MEDS ORDERED: INSULIN GLARGINE SOLOSTAR 100 UNITS/ML 3 ML PEN SC SCH (04:15)
[2020-02-04] MEDS: INSULIN ASPART 100 UNITS/ML 3 ML PEN SC SCH ×5 (04:51→21:22)
[2020-02-04] MEDS: SODIUM CHLORIDE 0.9% 1000ML 1,000 ML IV SCH ×2 (04:52→13:27)
[2020-02-04 07:56] LABS: Basophils # (auto) 0.01 K/uL (0-0.2); Basophils % (auto) 0.1 %; Eosinophils # (auto) 0.26 K/uL (0-0.5); Eosinophils % (auto) 3.7 %; Hemoglobin 12.3 g/dL (14.0-18.0); Immature Granulocytes # (auto) 0.08 K/uL (0.00-0.02); Immature Granulocytes % (auto) 1.1 %; Lymphocytes # (auto) 1.07 K/uL (1.2-3.4); Lymphocytes % (auto) 15.2 %; Mean Corpuscular Hgb Conc 35.1 g/dL (32-36); Mean Corpuscular Volume 88.2 fL (80-100); Mean Platelet Volume 10.1 fL (7.4-10.4); Monocytes # (auto) 0.79 K/uL (0.11-0.59); Monocytes % (auto) 11.2 %; Neutrophils # (auto) 4.82 K/uL (1.4-6.5); Neutrophils % (auto) 68.7 %; Platelet Count 159 K/uL (130-400); RDW Coefficient of Variation 12.9 % (11.5-14.5); RDW Standard Deviation 41.5 fL (36.4-46.3); Red Blood Count 3.97 M/uL (4.7-6.1); White Blood Count 7.03 K/uL (4.8-10.8)
--- NOTE | 2020-02-04 08:14 | CT Scan Report ---
CT OF THE HEAD WITHOUT CONTRAST CLINICAL HISTORY: altered mental status COMPARISON STUDY: Head CT April 28, 2017. CT DOSE: 614.27 mGy.cm TECHNIQUE: Helical axial images of the head were obtained without IV contrast. Automated exposure con trol was utilized for the study. A dose lowering technique was utilized adhering to the principles o f ALARA. FINDINGS: No acute intracranial hemorrhage, midline shift or mass effect is present. The ventricular system is unremarkable. Mild white matter hypodensity suggests small vessel disease. The basilar cist erns are patent. No extra-axial collections are present. There are no findings to suggest acute dural sinus thrombosis or acute territorial infarct. No significant calvarial abnormalities are present. V isualized portions of the sinuses are clear. IMPRESSION: No acute intracranial findings. ACT 112: Negative or not required by law. Electronically signed by: Zaid Jhaveri M.D. 02/04/2020 8:12 AM
--- NOTE | 2020-02-04 08:24 | Electrocardiogram Report ---
Test Reason : Blood Pressure : / mmHG Vent. Rate : 079 BPM Atrial Rate : 079 BPM P-R Int : 198 ms QRS Dur : 084 ms QT Int : 380 ms P-R-T Axes : 086 -05 034 degrees QTc Int : 435 ms Normal sinus rhythm Normal ECG When compared with ECG of 12-DEC-2018 22:59, No significant change was found Confirmed by Emilio Ying ([id number]) on 02/04/2020 8:24:31 AM Referred By: REFERRED SELF Confirmed By:Emilio Ying
[2020-02-04 08:31] LABS: Albumin Level 3.2 gm/dl (3.4-5.0); BUN Creatinine Ratio 15.2 (10-20); Creatinine Clr Calc Pharmacy 44.3 ml/min; Est GFR (African American) 45.8; Est GFR (Non-African American) 39.5; Potassium 4.1 mmol/L (3.5-5.1)
[2020-02-04 08:34] LABS: Albumin Globulin Ratio 0.9 (0.9-2); Bilirubin,Total 0.5 mg/dl (0.2-1); Globulin 3.5 gm/dl (2.5-4.0); Total Protein 6.7 gm/dl (6.4-8.2)
[2020-02-04] MEDS ORDERED: terbinafine HCL 250 MG TAB PO SCH (09:00)
[2020-02-04] MEDS ORDERED: FUROSEMIDE 40 MG TAB PO SCH (09:00)
[2020-02-04] MEDS: FLUTICASONE FUROATE 100MCG 14 PUFFS/INHALER INH SCH (09:14)
[2020-02-04] MEDS: LIDOCAINE 5% 1 PATCH TD SCH (09:15)
[2020-02-04] MEDS: HEPARIN SOD 5,000 UNIT/0.5 ML VIAL SQ SCH ×2 (09:15→21:39)
[2020-02-04] MEDS: METOPROLOL SUCC 50MG EXT REL TAB PO SCH (09:16)
[2020-02-04] MEDS: MULTIVITAMIN TAB PO SCH (09:16)
[2020-02-04] MEDS: AMLODIPINE BESYLATE 5 MG TAB PO SCH (09:16)
[2020-02-04] MEDS: FINASTERIDE 5 MG TAB PO SCH (09:16)
[2020-02-04] MEDS: TAMSULOSIN HCL 0.4 MG CAP PO SCH (09:16)
[2020-02-04] MEDS: ASPIRIN 81 MG ECTAB PO SCH (09:16)
[2020-02-04] MEDS: PANTOprazole 40 MG TAB PO SCH (09:16)
[2020-02-04] MEDS: SERTRALINE HCL 50 MG TABLET PO SCH (09:17)
--- NOTE | 2020-02-04 16:28 | CT Scan Report ---
ABDOMEN AND PELVIS CT WITHOUT CONTRAST CT DOSE: 1400.58 mGy.cm HISTORY: left flank pain; kidney stone?? TECHNIQUE: Multiaxial CT images of the abdomen and pelvis were performed without contrast. A dose lo wering technique was utilized adhering to the principles of ALARA. COMPARISON STUDY: Renal ultrasound 12/18/2019. Abdominal CT 09/10/2014. FINDINGS: The lung bases are clear. No pneumoperitoneum. No pneumatosis. No suspicious lytic are joe tic osseous lesions. Small hiatus hernia. The unenhanced liver, spleen, adrenal glands, and pancreas are unremarkable. There is a 1.7 cm intermediate density exophytic lesion within the left kidney. Thi s is technically indeterminate on this noncontrast study but may represent a benign lesion given the long-term stability. Hypodensities within the right kidney are also similar to the prior study and fa vor cysts. No renal or ureteral stones. No hydronephrosis. Mild bladder wall thickening with adjacent fat stranding. The prostate gland is enlarged. There is also mild fat stranding surrounding the pros santoro gland. Small left inguinal hernia. Suboptimal evaluation for bowel pathology due to the lack of intravenous and oral contrast. There is a shortened colon which resides along the right side of the a bdomen. The appendix is not identified and may be surgically absent. The duodenum crosses the midline . Therefore, there is no evidence for intestinal malrotation. A few scattered jejunal diverticula. No evidence for acute diverticulitis. Tiny left periumbilical hernia containing a knuckle small bowel. Additional minimal inflammatory change surrounding the gallbladder. No gallbladder wall thickening. T he gallbladder is normally distended. Normal caliber common bile duct. No retroperitoneal or pelvic l ymphadenopathy. Calcified plaque within the normal caliber abdominal aorta. IMPRESSION: 1. No renal or ureteral stones. No hydronephrosis. 2. No definite bowel wall thickening or obstruction. 3. Mild bladder wall thickening with mild inflammatory change surrounding the bladder and prostate gl and. This may represent a cystitis/prostatitis. Recommend correlation with urinalysis. 4. Questionable minimal inflammatory change adjacent to the gallbladder. However, there is no definit e gallbladder wall thickening. Clinical correlation recommended to exclude the possibility of right u pper quadrant pain/developing acute cholecystitis. 5. Small hiatus hernia. 6. Stable 1.7 cm intermediate density left renal lesion. This is technical indeterminate but may repr esent a benign lesion given the long-term stability. Renal ultrasound can be used for confirmation an d to exclude the possibility of a renal mass. 7. Shortened colon seen along the right side the abdomen. However, there is no evidence for intestina l malrotation. 8. Tiny left periumbilical hernia containing a knuckle small bowel. ACT 112: Negative or not required by law. Electronically signed by: Cristofer Amaro M.D. 02/04/2020 4:26 PM
--- NOTE | 2020-02-04 19:23 | Billing Data ---
Date of Service February 04, 2020 Coding Level of Care Code 50244 Initial Inpt Care Lvl 3
--- NOTE | 2020-02-04 20:19 | Hospitalist Progress Note ---
Date of Service February 04, 2020 Assessment & Plan (1) Encephalopathy: ongoing. initially thought to be toxic from recent baclofen use. I do believe that played a large role in his presentation. however, he has had no baclofen in 24+ hours and he is still confused. metabolic factors are also possible. u/a slightly dirty, and CT abd/pelvis with cystitis type findings (no evidence of prostatitis on my DENYS today). plan - * no discharge at this time * start keflex 500mg BID for possible uncomplicated UTI * follow urine culture * continue to HOLD baclofen * check B12, TSH in am to be complete Of note - CT head wnl at admission. If no UTI found, if mental status continues to be poor - MRI brain to r/o subacute stroke or other process. Lastly, concerned about left eye turning inward. I did not appreciate esotropia on the left. EOMI. No nystagmus. No diplopia. Reassurance given; will follow this carefully. (2) Acute kidney injury: resolved with IV fluids d/c fluids BMP in am for stability (3) Abnormal CT of the abdomen: findings concerning for cystitis and/or prostatitis DENYS performed - no evidence of clinical prostatitis u/a slightly dirty, and in light of confusion, will start keflex while awaiting urine culture left-sided renal cyst is CHRONIC and likely benign no evidence of kidney stones (4) Stage III chronic kidney disease: Cr has returned to baseline today BMP in am for stability (5) GERD without esophagitis: cont PPI (6) BPH with obstruction/lower urinary tract symptoms: cont flomax (7) HTN (hypertension): holding diuretics in light of resolving ANA holding GRUPO as well (8) Type II diabetes mellitus with complication: increase lantus to 15 units BID leave novolog as is (9) DVT prophylaxis: heparin 5000 BID extensively updated change observation status to admission in light of ongoing encephalopathy PT, OT evals Admission and Anticipated Discharge Date Admission Date: February 04, 2020 Subjective patient continues with left lower back/flank pain but now the pain has shifted to the anterior left abdomen. denies leg pain. pain in left flank worsened by twisting or movement. no h/o kidney stones. no hematuria. denies pelvic or perineal pain. patient reports having done heavy labor with a friend about 1-2 days before pain started. was at bedside later in the day. I came to the bedside for a 2nd visit. concerned that left eye was turning inward. she was also concerned that patient was still confused and hallucinating (apparently saw a person on the wall earlier in the evening). last dose of baclofen was yesterday. appetite good throughout the day. Review of Systems Constitutional: no fever, no chills, no fatigue and no anorexia Eyes: no diplopia and no worsening vision Respiratory: + dyspnea on exertion (baseline) and + wheezing Cardiovascular: no chest pain Gastrointestinal: as per Subjective / HPI; no nausea and no vomiting Genitourinary: no dysuria and no hematuria Musculoskeletal: as per Subjective / HPI Integumentary: no rash Neurologic: no localized weakness Physical Exam Constitutional: no acute distress and no altered mental status Eyes: EOM intact bilaterally; no conjunctival abnormality, no scleral abnormality and no nystagmus ENMT: external ear and nose normal, oropharynx normal Respiratory: no respiratory distress Auscultation: + wheezes (moderate b/l ); no crackles Cardiovascular: Rate/Rhythm: regular rate and regular rhythm Heart Sounds: normal S1 and normal S2; no murmur Vessels: posterior tibial pulses present and dorsalis pedis pulses present; no JVD Extremities: no edema Gastrointestinal (Abdomen): Inspection/Auscultation: normal bowel sounds; abdomen not distended Percussion/Palpation: + abdomen tender (left flank and LUQ) and abdomen soft; no guarding and no hepatosplenomegaly DENYS - chaperoned by nursing staff - prostate mildly enlarged but smooth; no nodules; no tenderness; no bogginess. no impaction. no masses. stool brown. Musculoskeletal: Spine: no thoracic spinal tenderness and no lumbar spinal tenderness Skin: no rashes, warm and dry Neurologic: moves all extremities; no focal motor deficits Results & Data Results & Data ([facility]) Vital Signs (Past 12 Hours) Vital Signs Temp Pulse Pulse Resp BP BP Pulse Ox 02/04/20 19:16 36.3 C L 74 19 153/81 H 97 02/04/20 17:27 73 02/04/20 15:38 36.6 C 72 18 148/79 H 94 Laboratory Results Laboratory Results - last 24 hr 02/03/20 02/03/20 02/03/20 23:59 23:59 23:59 WBC 8.11 RBC 4.02 L Hgb 12.7 L Hct 35.7 L MCV 88.8 MCH 31.6 MCHC 35.6 RDW Std Deviation 41.7 RDW Coeff of Nilesh 13.0 Plt Count 191 MPV 9.7 Immature Gran % (Auto) 0.7 Neut % (Auto) 69.9 Lymph % (Auto) 13.7 [place] % (Auto) 12.3 Eos % (Auto) 3.2 Baso % (Auto) 0.2 Neut # (Auto) 5.66 Lymph # (Auto) 1.11 L [place] # (Auto) 1.00 H Eos # (Auto) 0.26 Baso # (Auto) 0.02 Immature Gran # (Auto) 0.06 H Sodium 142 Potassium 4.6 Chloride 110 H Carbon Dioxide 25 Anion Gap 7.0 BUN 28 H Creatinine 1.99 H Est Cr Clr Drug Dosing Not Reportable Est GFR ( Amer) 35.2 Est GFR (Non-Af Amer) 30.4 BUN/Creatinine Ratio 14.1 Glucose 332 H* POC Glucose Calcium 7.8 L Magnesium 1.9 Total Bilirubin 0.4 AST 15 ALT 23 Alkaline Phosphatase 132 H Troponin I < 0.015 Total Protein 7.5 Albumin 3.5 Globulin 4.0 Albumin/Globulin Ratio 0.9 Beta-Hydroxybutyric Acd 1.24 Urine Color Urine Appearance Urine pH Ur Specific [place] Urine Protein Urine Glucose (UA) Urine Ketones Urine Blood Urine Nitrite Urine Bilirubin Urine Urobilinogen Ur Leukocyte Esterase Urine WBC (Auto) Urine RBC (Auto) U Hyaline Cast (Auto) U Epithel Cells (Auto) Urine Bacteria (Auto) Urine Opiates Screen Ur Methadone, Qual Urine Barbiturates Ur Phencyclidine (PCP) U Amphetamin/Meth Scrn MDMA (Ecstasy) Screen U Benzodiazepines Scrn Ur Cocaine Metabolite U Marijuana (THC) Screen Ethyl Alcohol mg/dL < 3.0 02/04/20 02/04/20 02/04/20 00:00 00:00 04:45 WBC RBC Hgb Hct MCV MCH MCHC RDW Std Deviation RDW Coeff of Nilesh Plt Count MPV Immature Gran % (Auto) Neut % (Auto) Lymph % (Auto) [place] % (Auto) Eos % (Auto) Baso % (Auto) Neut # (Auto) Lymph # (Auto) [place] # (Auto) Eos # (Auto) Baso # (Auto) Immature Gran # (Auto) Sodium Potassium Chloride Carbon Dioxide Anion Gap BUN Creatinine Est Cr Clr Drug Dosing Est GFR ( Amer) Est GFR (Non-Af Amer) BUN/Creatinine Ratio Glucose POC Glucose 238 H Calcium Magnesium Total Bilirubin AST ALT Alkaline Phosphatase Troponin I Total Protein Albumin Globulin Albumin/Globulin Ratio Beta-Hydroxybutyric Acd Urine Color Yellow Urine Appearance Clear Urine pH 5.5 Ur Specific [place] 1.022 Urine Protein 2+ H Urine Glucose (UA) 3+ H Urine Ketones Negative Urine Blood Negative Urine Nitrite Negative Urine Bilirubin Negative Urine Urobilinogen Negative Ur Leukocyte Esterase Trace H Urine WBC (Auto) 10-30 H Urine RBC (Auto) 0-4 U Hyaline Cast (Auto) 1-5 U Epithel Cells (Auto) 10-20 H Urine Bacteria (Auto) Negative Urine Opiates Screen Neg Ur Methadone, Qual Neg Urine Barbiturates Neg Ur Phencyclidine (PCP) Neg U Amphetamin/Meth Scrn Neg MDMA (Ecstasy) Screen Neg U Benzodiazepines Scrn Neg Ur Cocaine Metabolite Neg U Marijuana (THC) Screen Neg Ethyl Alcohol mg/dL 02/04/20 02/04/20 02/04/20 07:43 07:43 07:49 WBC 7.03 RBC 3.97 L Hgb 12.3 L Hct 35.0 L MCV 88.2 MCH 31.0 MCHC 35.1 RDW Std Deviation 41.5 RDW Coeff of Nilesh 12.9 Plt Count 159 MPV 10.1 Immature Gran % (Auto) 1.1 Neut % (Auto) 68.7 Lymph % (Auto) 15.2 [place] % (Auto) 11.2 Eos % (Auto) 3.7 Baso % (Auto) 0.1 Neut # (Auto) 4.82 Lymph # (Auto) 1.07 L [place] # (Auto) 0.79 H Eos # (Auto) 0.26 Baso # (Auto) 0.01 Immature Gran # (Auto) 0.08 H Sodium 143 Potassium 4.1 Chloride 114 H Carbon Dioxide 24 Anion Gap 5.0 BUN 24 H Creatinine 1.60 H D Est Cr Clr Drug Dosing 44.3 Est GFR ( Amer) 45.8 Est GFR (Non-Af Amer) 39.5 BUN/Creatinine Ratio 15.2 Glucose 181 H POC Glucose 179 H Calcium 8.0 L Magnesium Total Bilirubin 0.5 AST 12 L ALT 21 Alkaline Phosphatase 104 Troponin I Total Protein 6.7 Albumin 3.2 L Globulin 3.5 Albumin/Globulin Ratio 0.9 Beta-Hydroxybutyric Acd Urine Color Urine Appearance Urine pH Ur Specific [place] Urine Protein Urine Glucose (UA) Urine Ketones Urine Blood Urine Nitrite Urine Bilirubin Urine Urobilinogen Ur Leukocyte Esterase Urine WBC (Auto) Urine RBC (Auto) U Hyaline Cast (Auto) U Epithel Cells (Auto) Urine Bacteria (Auto) Urine Opiates Screen Ur Methadone, Qual Urine Barbiturates Ur Phencyclidine (PCP) U Amphetamin/Meth Scrn MDMA (Ecstasy) Screen U Benzodiazepines Scrn Ur Cocaine Metabolite U Marijuana (THC) Screen Ethyl Alcohol mg/dL 02/04/20 02/04/20 02/04/20 11:59 16:33 20:33 WBC RBC Hgb Hct MCV MCH MCHC RDW Std Deviation RDW Coeff of Nilesh Plt Count MPV Immature Gran % (Auto) Neut % (Auto) Lymph % (Auto) [place] % (Auto) Eos % (Auto) Baso % (Auto) Neut # (Auto) Lymph # (Auto) [place] # (Auto) Eos # (Auto) Baso # (Auto) Immature Gran # (Auto) Sodium Potassium Chloride Carbon Dioxide Anion Gap BUN Creatinine Est Cr Clr Drug Dosing Est GFR ( Amer) Est GFR (Non-Af Amer) BUN/Creatinine Ratio Glucose POC Glucose 179 H 258 H 206 H Calcium Magnesium Total Bilirubin AST ALT Alkaline Phosphatase Troponin I Total Protein Albumin Globulin Albumin/Globulin Ratio Beta-Hydroxybutyric Acd Urine Color Urine Appearance Urine pH Ur Specific [place] Urine Protein Urine Glucose (UA) Urine Ketones Urine Blood Urine Nitrite Urine Bilirubin Urine Urobilinogen Ur Leukocyte Esterase Urine WBC (Auto) Urine RBC (Auto) U Hyaline Cast (Auto) U Epithel Cells (Auto) Urine Bacteria (Auto) Urine Opiates Screen Ur Methadone, Qual Urine Barbiturates Ur Phencyclidine (PCP) U Amphetamin/Meth Scrn MDMA (Ecstasy) Screen U Benzodiazepines Scrn Ur Cocaine Metabolite U Marijuana (THC) Screen Ethyl Alcohol mg/dL Diagnostic Findings CT abd/pelvis - IMPRESSION: 1. No renal or ureteral stones. No hydronephrosis. 2. No definite bowel wall thickening or obstruction. 3. Mild bladder wall thickening with mild inflammatory change surrounding the bladder and prostate gland. This may represent a cystitis/prostatitis. Recommend correlation with urinalysis. 4. Questionable minimal inflammatory change adjacent to the gallbladder. However, there is no definite gallbladder wall thickening. Clinical correlation recommended to exclude the possibility of right upper quadrant pain/developing acute cholecystitis. 5. Small hiatus hernia. 6. Stable 1.7 cm intermediate density left renal lesion. This is technical indeterminate but may represent a benign lesion given the long-term stability. Renal ultrasound can be used for confirmation and to exclude the possibility of a renal mass. 7. Shortened colon seen along the right side the abdomen. However, there is no evidence for intestinal malrotation. 8. Tiny left periumbilical hernia containing a knuckle small bowel. PG Care Time/CCT Total # of Minutes Spent Total Time Spent with Patient: Total time spent is greater than 50% in coordination of care (as documented) at patient's floor/unit and/or counseling patient: Coding Level of Care Code 32839 Subseq Hosp Care Lvl 2 Diagnoses Encephalopathy G93.40 Acute kidney injury N17.[address] of the abdomen R93.5 Stage III chronic kidney disease N18.3 GERD without esophagitis K21.9 BPH with obstruction/lower urinary tract symptoms N40.1; N13.8 HTN (hypertension) I10 Hypertension type: essential hypertension Type II diabetes mellitus with complication E11.8 DVT prophylaxis Z29.9 (1) HTN (hypertension) Hypertension type: essential hypertension Qualified Code(s): I10 - Essential (primary) hypertension
[2020-02-04] MEDS ORDERED: ATORVASTATIN 20 MG TAB PO SCH (21:00)
[2020-02-04] MEDS: ACETAMINOPHEN 500 MG TAB PO SCH (21:19)
[2020-02-04] MEDS: cephALEXin 500 MG CAP PO SCH (21:19)
[2020-02-04] MEDS: INSULIN GLARGINE SOLOSTAR 100 UNITS/ML 3 ML PEN SC SCH (21:21)
[2020-02-05 07:36] LABS: BUN Creatinine Ratio 13.4 (10-20); Calcium 8.1 mg/dl (8.5-10.1); Creatinine Clr Calc Pharmacy 47.6 ml/min; Est GFR (African American) 49.9; Est GFR (Non-African American) 43.1
[2020-02-05 07:52] LABS: Potassium 4.5 mmol/L (3.5-5.1); Thyroid Stimulating Hormone 4.28 uIu/ml (0.300-4.500)
[2020-02-05] MEDS: FLUTICASONE FUROATE 100MCG 14 PUFFS/INHALER INH SCH (07:54)
[2020-02-05] MEDS: TAMSULOSIN HCL 0.4 MG CAP PO SCH (07:55)
[2020-02-05] MEDS: cephALEXin 500 MG CAP PO SCH (07:55)
[2020-02-05] MEDS: ASPIRIN 81 MG ECTAB PO SCH (07:55)
[2020-02-05] MEDS: LIDOCAINE 5% 1 PATCH TD SCH (07:55)
[2020-02-05] MEDS: AMLODIPINE BESYLATE 5 MG TAB PO SCH (07:56)
[2020-02-05] MEDS: MULTIVITAMIN TAB PO SCH (07:56)
[2020-02-05] MEDS: FINASTERIDE 5 MG TAB PO SCH (07:56)
[2020-02-05] MEDS: ACETAMINOPHEN 500 MG TAB PO SCH (07:56)
[2020-02-05] MEDS: METOPROLOL SUCC 50MG EXT REL TAB PO SCH (07:56)
[2020-02-05] MEDS: PANTOprazole 40 MG TAB PO SCH (07:56)
[2020-02-05] MEDS: SERTRALINE HCL 50 MG TABLET PO SCH (07:57)
[2020-02-05] MEDS: HEPARIN SOD 5,000 UNIT/0.5 ML VIAL SQ SCH (07:58)
[2020-02-05] MEDS: INSULIN GLARGINE SOLOSTAR 100 UNITS/ML 3 ML PEN SC SCH (07:58)
[2020-02-05] MEDS: INSULIN ASPART 100 UNITS/ML 3 ML PEN SC SCH ×2 (08:05→12:07)
[2020-02-05 11:34] VITALS: PULSE 70; TEMP 98.4; O2SAT 97
[2020-02-05 11:59] VITALS: BP 161/73
--- NOTE | 2020-02-05 16:11 | Discharge Summary ---
Date of Service February 05, 2020 Admission HPI Per Admitting Provider Barney is an 84-year-old male with a past medical history of insulin-dependent type 2 diabetes, stage III chronic kidney disease, MGUS, GERD, BPH, and hypertension who presents with worsening confusion and altered mental status after starting baclofen 3 days prior to admission. Barney is seen at the bedside with his present. They report that Barney was seen by nephrology for left back/flank pain on (3 days prior to admission). He had been lifting and twisting prior, and was focally tender to palpation. He was seen by nephrology who felt his pain was not consistent with renal disease, and he was prescribed baclofen for muscle spasm/pain. He took 2 doses of baclofen 10 mg on , 3 doses on Wednesday, and 1 dose (his last dose) Wednesday morning at 8 AM prior to admission. Over this time. He became increasingly confused and patient reports it feels like "being drunk ". His reports that he was having difficulty articulating himself, but did not appear to have any focal weakness. He has a history of TIA in 1989, so they were concerned about potential stroke. He was getting worse up until mid Wednesday, they report he seems to be improving at time of ER evaluation. He denies hallucinations, falls, presyncope, syncope, chest pain. He is at type II diabetic, and notes that his blood sugar earlier in the evening was 332 which is likely because he ate and did not cover with his short-term insulin. His reports that he normally misses his midday insulin dose and often will not eat at that time because he is busy. Medical history: Reviewed Surgical history: Reviewed Medications: Reviewed Allergies: Reviewed Social: Remote rare cigar use, otherwise no tobacco use. Denies alcohol and recreational drug use. Lives at home with his . CODE STATUS: Full code, discussed with patient and his Principal Diagnosis Baclofen reaction Possible mild cystitis adding to confusion Discharge Exam Constitutional WD/WN, vitals as above Eyes EOM intact bilaterally; no conjunctival abnormality ENMT external ear and nose normal, oropharynx normal Neck trachea midline, no thyromegaly normal visual inspection Respiratory normal respiratory effort, lungs clear to auscultation no respiratory distress Cardiovascular RRR, no murmur, no edema Gastrointestinal (Abdomen) Inspection/Auscultation: abdomen normal to inspection; abdomen not distended Musculoskeletal no cyanosis or clubbing, extremities motor strength 5/5 Skin no rashes, warm and dry Neurologic moves all extremities and awake Psychiatric Orientation: alert, oriented to person and cooperative Discharge Data Allergies Allergy/AdvReac Type Severity Reaction Status Date / Time diazepam Allergy Intermediate rash Verified 02/03/20 23:42 morphine Allergy Intermediate hallucinati Verified 02/03/20 23:42 ons baclofen Allergy Verified 02/05/20 11:38 Consultations 02/04/20 01:20 ED Decision to Admit Stat Ordered Studies 02/03/20 23:34 CT head/brain wo con Urgent 02/04/20 15:42 CT abd pelvis wo con Urgent Hospital Course (1) Encephalopathy: 1) Initially thought to be toxic from recent baclofen use. I do believe that played a large role in his presentation. 2) U/a slightly dirty, and CT abd/pelvis with cystitis type findings (no evidence of prostatitis on my DENYS today). * started keflex 500mg BID for possible uncomplicated UTI -> Will give 3 more days. This is a questionable call, but will treat just in case. * Discharged off baclofen. Added to allergy list. * Checked B12, TSH in am - Normal (2) Abnormal CT of the abdomen: Findings concerning for cystitis and/or prostatitis. DENYS performed by Dr. Rowan - no evidence of clinical prostatitis. - U/a slightly dirty, and in light of confusion, started keflex while awaiting urine culture. Will get 3 more days. - Left-sided renal cyst is CHRONIC and likely benign Total Time Total Time Spent Total Time Spent (In Minutes): 35 Discharge Plan Discharge Items Patient Disposition: Home - Self-Care Reason For Visit: ALTERED MENTAL STATUS Discharge Diagnosis: Baclofen reaction Activity: Resume your previous activity Non-emergency contact: Primary Care Provider Call non-emergency contact if: your symptoms worsen Follow-up/Referrals: Rodríguez Rodriges, [Primary Care Provider] - Diet: Carb Consistent or DM2 and Heart Healthy Addtl Attending Provider Instructions: You were admitted for altered mental status that we believe was largely related to a baclofen reaction. This can be a sedating medication, but for you the reaction was extreme. Please NEVER take baclofen again as this could/would happen again. We did quite a bit of testing to be sure nothing else was going on. We tested your thyroid, kidneys, liver, brain, heart, and vitamin levels. The only other issue that was noted was a possible mild bladder infection. We are giving you 4 more days of antibiotics to be sure that if this was contributing that it goes away. We also saw a small cyst on the left kidney. This should be monitored by your PCP in 6 months to a year to be sure it is not changing. They can use ultrasound to prevent you needing further radiation. It has been stable since your last CT scan in 2014, and likely is nothing to worry about at all. Please take your next dose of antibiotic tonight, then every morning and night until it is gone. Pending Studies at Discharge: No Stand-Alone Forms: [facility] [place], Smoking Cessation Medications and DC Order Prescriptions: New cephalexin 500 mg Capsule 500 mg PO BID Qty: 7 RF: 0 lidocaine 5 % Adhesive Patch,Medicated 1 patch transdermal QAM Qty: 10 RF: 0 Continued (DME) Depend Real Fit Brief Men L/XL misc See Dose Instructions .ROUTE .MEDSUPPLY Qty: 60 RF: 10 insulin lispro 100 unit/mL insulin pen 25 units subcut QAM Qty: 30 RF: 5 spironolactone 25 mg tablet 25 mg PO DAILY Qty: 90 RF: 3 ferrous fumarate-vitamin C 1 tab PO DAILY PRN (Reason: prn) RF: 0 metoprolol succinate 50 mg tablet extended release 24 hr 50 mg PO DAILY RF: 0 sertraline 50 mg tablet 50 mg PO DAILY RF: 0 multivitamin [Daily Multi-Vitamin] Tablet 1 tab PO DAILY RF: 0 Flovent HFA 44 mcg/actuation HFA aerosol inhaler 2 puffs INH DAILY RF: 0 furosemide 40 mg tablet 40 mg PO DAILY Qty: 90 RF: 3 amlodipine 10 mg tablet 10 mg PO DAILY Qty: 90 RF: 3 (DME) Accu-Chek Miriam Plus test strp strip See Dose Instructions .ROUTE .MEDSUPPLY Qty: 10 RF: 0 (DME) OneTouch Ultra Blue Test Strip strip See Dose Instructions .ROUTE .MEDSUPPLY Qty: 10 RF: 0 albuterol sulfate 90 mcg/actuation HFA aerosol inhaler See Rx Instructions inhalation Q4H PRN (Reason: sob) RF: 0 aspirin 81 mg tablet 81 mg PO DAILY RF: 0 esomeprazole magnesium 20 mg capsule,delayed release(DR/EC) 20 mg PO DAILY RF: 0 finasteride 5 mg tablet 5 mg PO DAILY Qty: 90 RF: 0 lisinopril 40 mg tablet 40 mg PO DAILY Qty: 90 RF: 0 terbinafine HCl 250 mg tablet 250 mg PO DAILY Qty: 42 RF: 0 atorvastatin 20 mg tablet 20 mg PO QPM Qty: 90 RF: 3 Lantus Solostar U-100 Insulin 100 unit/mL (3 mL) insulin pen See Rx Instructions SQ .COMPLEX Qty: 30 RF: 5 tamsulosin 0.4 mg capsule 0.8 mg PO DAILY Qty: 60 RF: 1 Discontinued baclofen 10 mg tablet 10 mg PO TID PRN (Reason: back pain) Qty: 90 RF: 0 flu vacc [id number] 65yr up(PF) 180 mcg/0.5 mL syringe 0.5 ml IM ONCE Qty: 0.5 RF: 0 Shingrix (PF) 50 mcg/0.5 mL suspension for reconstitution 0.5 ml IM .COMPLEX Qty: 1 RF: 1 Discharge Orders: Discharge Order (Routine); Ordered 02/05/20 Ordered By: Casimiro Rodriges Admission Data Admit Date/Time: 02/04/20 17:27 Attending Provider: Casimiro Rodriges Admit Provider: Yon Serrano Primary Care Provider: Rodríguez Rordiges Other Providers: Glenn Valles Other Interventions: Discharge Summary Assessment (RN) Last Done: 02/05/20 11:57 DC Date/Time DO NOT enter until pt leaves facility: 02/05/20 12:37 Coding Level of Care Code D/C Day Management >30 mins Diagnoses Encephalopathy G93.[address] of the abdomen R93.5
--- NOTE | 2020-02-21 14:59 | Coding Query ---
A supporting diagnosis is required for the test/procedure performed on this patient in order for us to be reimbursed by the patient's insurance. Please provide a supporting diagnosis for the following test/procedure listed below next to the test name along with your signature. *If there is no additional diagnosis for this patient that would support the following test/procedure please document that below next to the test/procedure. Test(s)/Procedure(s) that require a supporting diagnosis: Vitamin B12 DIAGNOSIS: anemia confusion / encephalopathy fatigue Provider Signature: Date: Thank you Graciela Zheng Health Information Management Once completed, please kindly fax back to [phone] For questions please call [phone] LING
== END 2020-02-05 12:37 | disposition home or self-care (01) | DRG 91 ==
LOC: 2N 23:04 → ED 23:04 → SUATTDRO 02-04 01:58 → 2N 02-04 02:24 → SUATTDRO 02-04 17:27

== ENCOUNTER 2022-04-24 16:34 | Observation (INO) ==
[2022-04-24] MEDS ORDERED: SODIUM CHLORIDE 0.9% 1000ML 1,000 ML IV ONE ×2 (17:54→19:08)
--- NOTE | 2022-04-24 18:02 | Emergency Department Note ---
Impression & Plan Elevated troponin, Influenza A, Acute UTI ADMIT ED Provider Note HPI: The patient is an 86-year-old gentleman with history of hypertension, chronic kidney disease, presents the emergency department with a chief complaint of fever and cough for the past 3 days. Patient's states that shortly prior to arrival the patient had an event where he fell off the steps from their house into the gravel driveway. Patient states he does not remember how he fell, states that he had some chest discomfort after the fall and his states he fell directly on the front of his chest. Patient's states that they recently returned from a wedding that was in [place] over the weekend, they returned home on Wednesday. Patient began to have a cough shortly thereafter, he had some tactile fevers at home. Today when the patient was walking off the step he tripped and fell into the gravel, patient states he does not remember exactly what happened but he does have some pain in the central part of his chest on arrival that he believes is secondary to his fall. On arrival here to the ED the patient is alert and oriented, he is in no acute distress, he is noted to be mildly tachycardic and febrile at 38.5 on arrival, blood pressure is 149/73 on arrival. ROS: -Cardio: Chest pain/rib pain status post fall -General: Fever *10 point review systems was conducted and is otherwise negative unless stated above *Outpatient medications and allergy history reviewed PE: General: Alert HEENT: Normocephalic, trachea midline Eyes: Extraocular eye movement is intact, no scleral erythema Pulmonary: Clear to auscultation bilaterally, no wheezing Cardio: Tachycardic rate and regular rhythm GI: Abdomen is soft, nontender : No suprapubic tenderness MSK: No evidence of trauma or malformation of the extremities, no edema Skin: No evidence of rash Neuro: Alert, no focal deficits Psychiatric: Cooperative compliance monitor: - An order was placed for continuous cardiac monitoring - Patient was noted to be in sinus tachycardia with a rate of 108 EKG: Rate: 115 Rhythm: Sinus tachycardia Intervals: Within normal limits ST changes: No ST elevation Time: 1749 Critical lab abnormalities: -High-sensitivity troponin elevation at 131 -Influenza A positive Interventions provided: -IV fluids, IV Tylenol, ASA, IV ceftriaxone, Tamiflu Patient's clinical status: - Improved Medical Decision Making: Patient presented to the emergency department after a possible syncopal event. He has been febrile for several days, he has had some upper respiratory symptoms including cough and tactile fevers. On arrival here to the ED the patient is mildly tachycardic and noted to be febrile at 38.5. Patient is alert and oriented on arrival, complains only of "weakness" and also states that he has some substernal chest pain where he fell on the ground. IV was established, lab work obtained, patient was placed on compliance monitor, blood cultures were drawn in the ED, viral panel testing was sent. Patient was given IV fluids, lab work returns does not show any evidence of leukocytosis, hemoglobin is stable, slight elevation in creatinine to 2.08 above baseline (approximately 1.5). In addition, lactic acid is elevated to 2.8, patient was ordered greater than 30 cc/kg of IV fluid for resuscitation, tachycardia did downtrend, blood pressure stabilized at 126/[address] imaging of the chest as well as CT imaging of the abdomen and pelvis did not show any acute traumatic abnormalities. No evidence of pneumonia. CT imaging of the head and CT imaging of the cervical spine are negative for any acute traumatic abnormalities. On reassessment the patient states he is feeling improved following IV fluids and Tylenol, he is saturating well on room air and blood pressure remained stable. Viral panel testing was sent and patient did test positive for influenza A, given his age and comorbidities he was started on Tamiflu. In addition, patient's troponin level did return at 131, he does tell me that his chest pain is improved from previous and he does believe that this was from his fall as he was not having it previous to this. His EKG does not show any acute ischemic changes. This is possibly demand ischemia in the setting of active influenza A infection. Patient's urinalysis is questionable for infection, CT imaging does show evidence of an enlarged prostate, patient was covered prophylactically with IV ceftriaxone and will plan to follow-up on urine cultures and blood cultures. I do suspect his fever is likely secondary to influenza A infection. Patient was given aspirin in the ED and plan will be to admit to the hospitalist service for further management of influenza A infection, elevated troponin, acute kidney injury. Patient appears improved on my reassessment he is in agreement to the above plan. Patient was admitted in stable condition for further care. [facility] hospitalist service was consul bacilio and case was discussed with Dr. Grant prior to admit. Diagnosis: 1. Elevated high-sensitivity troponin level 2. Acute kidney injury 3. Influenza A infection 4. Urinary tract infection 5. Lactic acidosis Disposition: Admission José Miguel Nolan DO Emergency Medicine Past Med/Surg History Medical History Anemia BPH with obstruction/lower urinary tract symptoms Calcification of aorta Cardiomegaly COVID-19 Erectile dysfunction Fatty liver GERD without esophagitis Hiatal hernia HTN (hypertension) Low back pain MGUS (monoclonal gammopathy of unknown significance) Osteopenia of spine Stage III chronic kidney disease Type II diabetes mellitus with complication Vitamin D deficiency Surgical History History of appendectomy History of cataract surgery History of incisional hernia repair History of inguinal hernia repair History of laminectomy History of lumpectomy History of partial colectomy Family History Sister Colorectal cancer Denies family history of Ovarian cancer Prostate cancer Myocardial infarction Breast cancer Social History (Updated 01/26/22 @ 10:00 by Manjula Perez LPN) Smoking Status: Never smoker Age Started Using Tobacco: 19; Age Quit Using Tobacco: 19; Second Hand Exposure: No; Hx Alcohol Use: No Hx Substance Use: No Preferred Language: Malian Communication Ability: Effective Visual Impairment: No Limitations Hearing Ability: Use of Hearing Aid Wet Mix Operator Required: No Beliefs That Will Affect Care: None marital status: Current Living Situation: Spouse current occupational status: retired current occupation: Lives 6 months in [place]. Former [employer] How many Children do You have: 5 Feels Safe at Home: Yes Childhood Exposure to Second-Hand Smoke: No caffeine: Yes during the past year weight has: decreased > 10 lbs Dental Care, Regularly: Yes Physical Activity Frequency: Does not Exercise Seatbelt Use: sometimes Sunscreen Use: No Assistive Devices: Cane, Denture - Upper and Hearing Aid - Bilateral Allergies Allergies Allergy/AdvReac Type Severity Reaction Status Date / Time diazepam Allergy Intermediate rash Verified 01/26/22 09:46 morphine Allergy Intermediate hallucinati Verified 01/26/22 09:46 ons baclofen Allergy Unknown Verified 04/24/22 23:19 Home Meds Home Medications Medication Instructions Recorded Confirmed esomeprazole magnesium 20 mg 20 mg PO QAM 03/28/19 04/24/22 capsule,delayed release multivitamin (Daily Multi-Vitamin 1 tab PO DAILY 12/28/19 04/24/22 tablet) cholecalciferol (vitamin D3) 25 50 mcg PO DAILY 01/23/21 04/24/22 mcg (1,000 unit) tablet (Vitamin D3) aspirin 81 mg tablet,delayed 81 mg PO HS 04/24/22 04/24/22 release famotidine 20 mg tablet 20 mg PO BID 04/24/22 04/24/22 fluticasone propionate 44 2 puff inhalation DAILY PRN 04/24/22 04/24/22 mcg/actuation HFA aerosol inhaler Shortness Of Breath Or Wheezing (Flovent HFA) insulin glargine 100 unit/mL (3 25 unit subcut QPM 04/24/22 04/24/22 mL) subcutaneous pen (Lantus Solostar U-100 Insulin) insulin lispro 100 unit/mL 0 unit subcut AC PRN sliding scale 04/24/22 04/24/22 subcutaneous pen (Humalog KwikPen (U-100) Insulin) loratadine 10 mg tablet (Claritin) 10 mg PO DAILY PRN allergies 04/24/22 04/24/22 Previous Rx's Medication Instructions Recorded dicyclomine 20 mg tablet 20 mg PO TID PRN abdominal pain #9 05/05/20 tabs metoprolol succinate 50 mg 50 mg PO DAILY #90 tabs 01/10/21 tablet,extended release 24 hr albuterol sulfate 90 mcg/actuation See Rx Instructions inhalation Q4H 04/23/21 aerosol inhaler PRN sob #8.5 grams atorvastatin 20 mg tablet 20 mg PO QPM #90 tabs 04/28/21 tamsulosin 0.4 mg capsule 0.4 mg PO DAILY PRN BPH #30 caps 04/28/21 doxazosin 1 mg tablet 2 mg PO DAILY #30 tabs 01/26/22 hydroxyzine HCl 25 mg tablet 25 mg PO TID PRN itching #30 tabs 01/26/22 Results & Data (ED) Vital Signs Vital Signs - 24 hr 04/24/22 17:33 04/24/22 17:56 04/24/22 17:48 Temperature 38.5 C H Temperature Source Oral Pulse Rate 110 H 112 H Pulse Rate from SpO2 Sensor Respiratory Rate 20 44 H Blood Pressure 149/73 H 196/69 H Blood Pressure Mean 98 111 Pulse Oximetry 96 95 94 Oxygen Delivery Method Room Air Room Air Sepsis Recent Fever Within 48 Hours Yes Sepsis New/Unexplained Change in Mental Status No Sepsis Action Taken by Nursing No Action Required 04/24/22 18:30 04/24/22 19:36 04/24/22 20:00 Temperature Temperature Source Pulse Rate 107 H 104 H 101 H Pulse Rate from SpO2 Sensor Respiratory Rate 26 H 24 29 H Blood Pressure 159/65 H 163/59 H 190/79 H Blood Pressure Mean 96 93 116 Pulse Oximetry 97 96 95 Oxygen Delivery Method Sepsis Recent Fever Within 48 Hours Sepsis New/Unexplained Change in Mental Status Sepsis Action Taken by Nursing 04/24/22 20:30 04/24/22 21:02 04/24/22 21:30 Temperature Temperature Source Pulse Rate 106 H 101 H 100 H Pulse Rate from SpO2 Sensor Respiratory Rate 15 24 20 Blood Pressure 158/73 H 141/62 H 171/68 H Blood Pressure Mean 101 88 102 Pulse Oximetry 93 96 96 Oxygen Delivery Method Sepsis Recent Fever Within 48 Hours Sepsis New/Unexplained Change in Mental Status Sepsis Action Taken by Nursing 04/24/22 22:00 04/24/22 22:30 04/24/22 23:30 Temperature Temperature Source Pulse Rate 93 H 93 H 90 Pulse Rate from SpO2 Sensor 89 Respiratory Rate 21 26 H 20 Blood Pressure 171/69 H 160/75 H 126/65 Blood Pressure Mean 103 103 85 Pulse Oximetry 96 97 97 Oxygen Delivery Method Room Air Sepsis Recent Fever Within 48 Hours Sepsis New/Unexplained Change in Mental Status Sepsis Action Taken by Nursing Laboratory Data Result diagrams: 04/24/22 17:55 04/24/22 17:55 Lab Results 04/24/22 04/24/22 04/24/22 Range/Units 17:55 17:55 17:55 WBC 9.41 (4.8-10.8) K/ul RBC 4.67 (4.63-6.08) M/uL Hgb 14.0 (14.0-18.0) g/dl Hct 39.9 L (40.1-51.0) % MCV 85.4 (80.0-100.0) fL MCH 30.0 (25.0-34.0) pg MCHC 35.1 (32.0-36.0) g/dL RDW Std Deviation 41.1 (36.4-46.3) fL RDW Coeff of Nilesh 13.4 (11.5-14.5) % Plt Count 236 (130-400) K/uL MPV 9.6 (9.4-12.4) fL Immature Gran % (Auto) 1.3 % Neut % (Auto) 83.3 % Lymph % (Auto) 3.0 % [place] % (Auto) 11.5 % Eos % (Auto) 0.5 % Baso % (Auto) 0.4 % Neut # (Auto) 7.84 H (1.4-6.5) K/uL Lymph # (Auto) 0.28 L (1.2-3.4) K/uL [place] # (Auto) 1.08 H (0.24-0.82) K/uL Eos # (Auto) 0.05 (0-0.50) K/uL Baso # (Auto) 0.04 (0-0.2) K/uL Immature Gran # (Auto) 0.12 H (0.00-0.02) K/uL VBG pH (7.36-7.41) VBG pCO2 (38-50) mmHg VBG pO2 mmHg VBG HCO3 mmol/L VBG O2 Saturation % VBG Base Excess mEq/L Sodium 135 L (136-145) mmol/L Potassium 4.1 (3.5-5.1) mmol/L Chloride 102 (98-107) mmol/L Carbon Dioxide 23 (21-32) mmol/L Anion Gap 10 (3-11) BUN 23 (6-23) mg/dl Creatinine 2.08 H (0.6-1.4) mg/dl Est Cr Clr Drug Dosing Not Reportable Est GFR ( Amer) 32.9 ml/min Est GFR (Non-Af Amer) 28.4 ml/min BUN/Creatinine Ratio 11.1 (10-20) Glucose 201 H (70-99(Fasting)) mg/dl POC Glucose (70-99) mg/dl Lactate (0.4-2.0) mmol/L Calcium 8.5 (8.5-10.1) mg/dl Magnesium 1.7 (1.7-2.4) mg/dl Total Bilirubin 0.8 (0.2-1.0) mg/dl Direct Bilirubin 0.3 H (0-0.2) mg/dl AST 15 (13-39) U/L ALT 14 (7-52) U/L Alkaline Phosphatase 116 H (34-104) U/L Troponin I High Sens 131.5 H* (0-20) pg/ml Total Protein 7.2 (6.0-8.3) gm/dl Albumin 4.1 (3.4-5.0) gm/dl Procalcitonin 0.19 (0-0.5) ng/ml Urine Color Urine Appearance (Clear) Urine pH (4.5-7.5) Ur Specific Welcome (1.000-1.030) Urine Protein (Negative) Urine Glucose (UA) (Negative) Urine Ketones (Negative) Urine Blood (Negative) Urine Nitrite (Negative) Urine Bilirubin (Negative) Urine Urobilinogen (Negative) Ur Leukocyte Esterase (Negative) Urine WBC (Auto) (0-5) /hpf Urine RBC (Auto) (0-4) /hpf U Hyaline Cast (Auto) (0-5) /lpf U Epithel Cells (Auto) (0-5) /lpf Urine Bacteria (Auto) (Negative) SARS-CoV-2 (PCR) (Negative) Influenza Type A (PCR) (Neg) Influenza Type B (PCR) (Neg) RSV (RT-PCR) (Neg) 04/24/22 04/24/22 04/24/22 Range/Units 18:17 18:17 20:23 WBC (4.8-10.8) K/ul RBC (4.63-6.08) M/uL Hgb (14.0-18.0) g/dl Hct (40.1-51.0) % MCV (80.0-100.0) fL MCH (25.0-34.0) pg MCHC (32.0-36.0) g/dL RDW Std Deviation (36.4-46.3) fL RDW Coeff of Nilesh (11.5-14.5) % Plt Count (130-400) K/uL MPV (9.4-12.4) fL Immature Gran % (Auto) % Neut % (Auto) % Lymph % (Auto) % [place] % (Auto) % Eos % (Auto) % Baso % (Auto) % Neut # (Auto) (1.4-6.5) K/uL Lymph # (Auto) (1.2-3.4) K/uL [place] # (Auto) (0.24-0.82) K/uL Eos # (Auto) (0-0.50) K/uL Baso # (Auto) (0-0.2) K/uL Immature Gran # (Auto) (0.00-0.02) K/uL VBG pH 7.35 L (7.36-7.41) VBG pCO2 43 (38-50) mmHg VBG pO2 17 mmHg VBG HCO3 24 mmol/L VBG O2 Saturation < 60.0 % VBG Base Excess -2.0 mEq/L Sodium (136-145) mmol/L Potassium (3.5-5.1) mmol/L Chloride (98-107) mmol/L Carbon Dioxide (21-32) mmol/L Anion Gap (3-11) BUN (6-23) mg/dl Creatinine (0.6-1.4) mg/dl Est Cr Clr Drug Dosing Est GFR ( Amer) ml/min Est GFR (Non-Af Amer) ml/min BUN/Creatinine Ratio (10-20) Glucose (70-99(Fasting)) mg/dl POC Glucose (70-99) mg/dl Lactate 2.8 H* 1.6 (0.4-2.0) mmol/L Calcium (8.5-10.1) mg/dl Magnesium (1.7-2.4) mg/dl Total Bilirubin (0.2-1.0) mg/dl Direct Bilirubin (0-0.2) mg/dl AST (13-39) U/L ALT (7-52) U/L Alkaline Phosphatase (34-104) U/L Troponin I High Sens (0-20) pg/ml Total Protein (6.0-8.3) gm/dl Albumin (3.4-5.0) gm/dl Procalcitonin (0-0.5) ng/ml Urine Color Urine Appearance (Clear) Urine pH (4.5-7.5) Ur Specific Welcome (1.000-1.030) Urine Protein (Negative) Urine Glucose (UA) (Negative) Urine Ketones (Negative) Urine Blood (Negative) Urine Nitrite (Negative) Urine Bilirubin (Negative) Urine Urobilinogen (Negative) Ur Leukocyte Esterase (Negative) Urine WBC (Auto) (0-5) /hpf Urine RBC (Auto) (0-4) /hpf U Hyaline Cast (Auto) (0-5) /lpf U Epithel Cells (Auto) (0-5) /lpf Urine Bacteria (Auto) (Negative) SARS-CoV-2 (PCR) (Negative) Influenza Type A (PCR) (Neg) Influenza Type B (PCR) (Neg) RSV (RT-PCR) (Neg) 04/24/22 04/24/22 04/24/22 Range/Units 21:05 21:30 22:15 WBC (4.8-10.8) K/ul RBC (4.63-6.08) M/uL Hgb (14.0-18.0) g/dl Hct (40.1-51.0) % MCV (80.0-100.0) fL MCH (25.0-34.0) pg MCHC (32.0-36.0) g/dL RDW Std Deviation (36.4-46.3) fL RDW Coeff of Nilehs (11.5-14.5) % Plt Count (130-400) K/uL MPV (9.4-12.4) fL Immature Gran % (Auto) % Neut % (Auto) % Lymph % (Auto) % [place] % (Auto) % Eos % (Auto) % Baso % (Auto) % Neut # (Auto) (1.4-6.5) K/uL Lymph # (Auto) (1.2-3.4) K/uL [place] # (Auto) (0.24-0.82) K/uL Eos # (Auto) (0-0.50) K/uL Baso # (Auto) (0-0.2) K/uL Immature Gran # (Auto) (0.00-0.02) K/uL VBG pH (7.36-7.41) VBG pCO2 (38-50) mmHg VBG pO2 mmHg VBG HCO3 mmol/L VBG O2 Saturation % VBG Base Excess mEq/L Sodium (136-145) mmol/L Potassium (3.5-5.1) mmol/L Chloride (98-107) mmol/L Carbon Dioxide (21-32) mmol/L Anion Gap (3-11) BUN (6-23) mg/dl Creatinine (0.6-1.4) mg/dl Est Cr Clr Drug Dosing Est GFR ( Amer) ml/min Est GFR (Non-Af Amer) ml/min BUN/Creatinine Ratio (10-20) Glucose (70-99(Fasting)) mg/dl POC Glucose 120 H (70-99) mg/dl Lactate (0.4-2.0) mmol/L Calcium (8.5-10.1) mg/dl Magnesium (1.7-2.4) mg/dl Total Bilirubin (0.2-1.0) mg/dl Direct Bilirubin (0-0.2) mg/dl AST (13-39) U/L ALT (7-52) U/L Alkaline Phosphatase (34-104) U/L Troponin I High Sens (0-20) pg/ml Total Protein (6.0-8.3) gm/dl Albumin (3.4-5.0) gm/dl Procalcitonin (0-0.5) ng/ml Urine Color Yellow Urine Appearance Turbid A (Clear) Urine pH 5.0 (4.5-7.5) Ur Specific Welcome > 1.045 H (1.000-1.030) Urine Protein 3+ H (Negative) Urine Glucose (UA) Negative (Negative) Urine Ketones Negative (Negative) Urine Blood 2+ H (Negative) Urine Nitrite Negative (Negative) Urine Bilirubin Negative (Negative) Urine Urobilinogen Negative (Negative) Ur Leukocyte Esterase 3+ H (Negative) Urine WBC (Auto) >30 H (0-5) /hpf Urine RBC (Auto) 5-10 H (0-4) /hpf U Hyaline Cast (Auto) 0 (0-5) /lpf U Epithel Cells (Auto) >30 H (0-5) /lpf Urine Bacteria (Auto) 4+ H (Negative) SARS-CoV-2 (PCR) NEGATIVE (Negative) Influenza Type A (PCR) Positive A* (Neg) Influenza Type B (PCR) Negative (Neg) RSV (RT-PCR) Negative (Neg) Administered Medications Discontinued Medications Aspirin (Aspirin Chew 324 Mg) 324 mg PO NOW STA Stop: 10/07/22 20:27 Last Admin: 04/24/22 20:32 Dose: 324 mg Documented By: OAM Sodium Chloride (Nss 1000ml) 1,000 mls @ 999 mls/hr IV .Q1H1M ONE Stop: 04/24/22 18:54 Last Infusion: 04/24/22 19:55 Dose: 0 mls/hr Documented By: Admin: 04/24/22 18:09 Dose: 999 mls/hr Documented By: OAM Acetaminophen (Ofirmev) 1,000 mg in 100 mls @ 400 mls/hr IV NOW ONE Stop: 04/24/22 18:29 Last Infusion: 04/24/22 18:26 Dose: 0 mls/hr Documented By: Admin: 04/24/22 18:09 Dose: 400 mls/hr Documented By: OAM Sodium Chloride (Nss 1000ml) 1,000 mls @ 999 mls/hr IV .Q1H1M ONE Stop: 04/24/22 20:08 Last Infusion: 04/24/22 20:34 Dose: 0 mls/hr Documented By: Admin: 04/24/22 19:31 Dose: 999 mls/hr Documented By: JAYME Ceftriaxone Sodium (Rocephin) 1,000 mg in 50 mls @ 100 mls/hr IV NOW STA Stop: 04/24/22 23:31 Last Admin: 04/24/22 23:27 Dose: 100 mls/hr Documented By: ZEN Ioversol (Optiray 300 500ml) 111 ml IV ONCE ONE Stop: 04/24/22 19:13 Last Admin: 04/24/22 19:12 Dose: 111 ml Documented By: YAEL Labetalol HCl (Labetalol Hcl Iv 5 Mg/Ml 20ml) 10 mg IV NOW STA Stop: 04/24/22 20:58 Last Admin: 04/24/22 23:54 Dose: Not Given Documented By: ZEN Oseltamivir Phosphate (Oseltamivir Phosphate 75 Mg Cap) 75 mg PO NOW STA; Protocol Stop: 04/24/22 23:03 Last Admin: 04/24/22 23:27 Dose: 75 mg Documented By: ZEN Imaging Data Radiologist's Impression: Chest X-Ray 04/24/22 17:53 XR chest 1V portable HISTORY: 86 years-old Male Sepsis acute sepsis COMPARISON: Chest CT 02/17/2022, chest radiographs 12/12/2018 TECHNIQUE: Portable AP view of the chest FINDINGS: Cardiomediastinal and hilar silhouettes are within normal limits. Atherosclerosis of the aorta. Mild subsegmental left basilar atelectasis. No pneumothorax, pleural effusion, airspace consolidation or overt pulmonary edema. Degenerative changes of the shoulders and spine. IMPRESSION: No acute process. ACT 112: Negative or not required by law. The above report was generated using voice recognition software. It may contain grammatical, syntax or spelling errors. Electronically signed by: Stoney Blanchard M.D. 04/24/2022 6:[address] 04/24/22 18:02 CT OF THE CERVICAL SPINE WITHOUT CONTRAST CLINICAL HISTORY: fall COMPARISON STUDY: No previous studies for comparison. TECHNIQUE: Helical axial images of the cervical spine were obtained without IV contrast. Sagittal and coronal reconstructions were viewed. Automated exposure control was utilized for the study. A dose lowering technique was utilized adhering to the principles of ALARA. FINDINGS: Alignment of the cervical spine is anatomic. Vertebral body heights are maintained. No acute cervical spine fracture or subluxation is present. There is no prevertebral edema. Facet joints are intact. Moderate multilevel degenerative changes are present. IMPRESSION: No acute cervical spine fracture or subluxation. ACT 112: Negative or not required by law. Electronically signed by: Zaid Jhaveri M.D. 04/24/2022 8:[address] 04/24/22 18:02 CT OF THE HEAD WITHOUT CONTRAST CLINICAL HISTORY: Fall. COMPARISON STUDY: Head CT February 04, 2020. CT DOSE: 3431.05 mGy.cm TECHNIQUE: Helical axial images of the head were obtained without IV contrast. Automated exposure control was utilized for the study. A dose lowering technique was utilized adhering to the principles of ALARA. FINDINGS: No acute intracranial hemorrhage, midline shift or mass effect is present. White matter hypodensity suggests small vessel disease. The ventricular system is unremarkable. The basal cisterns are patent. No extra-axial collections are present. There are no findings to suggest acute dural sinus thrombosis or acute territorial infarct. No significant calvarial abnormalities are present. IMPRESSION: 1. No acute intracranial findings. 2. No acute calvarial fracture. ACT 112: Negative or not required by law. Electronically signed by: Zaid Jhaveri M.D. 04/24/2022 7:57 PM Abdomen/Pelvis CT 04/24/22 18:[address] WITH IV CONTRAST HISTORY: Acute abdominal trauma status post fall Fall TECHNIQUE: Multiaxial CT images of the abdomen and pelvis were performed following the IV administration of 111 cc of Optiray, A dose lowering technique was utilized adhering to the principles of ALARA. COMPARISON STUDY: CTA chest of same day, CT abdomen and pelvis 04/12/2021 FINDINGS: Mild bibasilar bronchial wall thickening with subsegmental atelectasis. The previously described solid nodules in the left lower lobe are not definitively seen. No pneumatosis or pneumoperitoneum. Coronary artery calcifications. The spleen measures 14.9 cm in length. Moderately atrophic pancreas. Punctate calcification of the pancreatic head. Unremarkable adrenal glands. The gallbladder is unremarkable. The liver is within normal limits. Patency of the hepatic and portal veins. Cysts within the kidneys measure up to 3.9 cm on the right. Intermediate density lesion of the interpolar left kidney measuring 1.8 cm likely also represents a cyst. No hydronephrosis. Urinary bladder wall thickening with perivesicular stranding. Heterogeneity of the enlarged prostate. Small fat filled left inguinal hernia. Atherosclerosis of the aorta without aneurysm or lymphadenopa thy. Mildly enlarged lymph nodes of the lower chest with paraesophageal lymph nodes measuring up to 1.2 cm. Small hiatal hernia. No bowel obstruction or bowel wall thickening. Postoperative changes of the large bowel. Periumbilical hernia containing a small nonobstructed portion of small bowel. Similar to prior. Degenerative changes of the spine, pelvis and hips. No definite acute fracture identified. IMPRESSION: 1. No acute posttraumatic intra-abdominal or intrapelvic abnormality. 2. No acute fracture identified. 3. Splenomegaly. 4. Heterogeneous prostamegaly could be correlated with PSA level. Urinary bladder wall thickening suggestive of chronic bladder outlet obstruction. 5. Additional findings as above. ACT 112: Negative or not required by law. The above report was generated using voice recognition software. It may contain grammatical, syntax or spelling errors. Electronically signed by: Stoney Blanchard M.D. 04/24/2022 8:47 PM Chest CTA 04/24/22 18:55 CT ANGIOGRAPHY OF THE CHEST, PULMONARY EMBOLUS PROTOCOL CLINICAL HISTORY: Sepsis. Falls. COMPARISON STUDY: Chest radiograph performed earlier today. Chest CT February 17, 2022. TECHNIQUE: Following IV administration of 111 mL of Optiray, helical axial images of the chest were obtained utilizing the pulmonary embolus protocol. Maximal intensity projections and sagittal and coronal reformats were viewed on an independent 3D workstation. IV contrast was administered without complication. Automated exposure control was utilized for the study. A dose lowering technique was utilized adhering to the principles of ALARA. FINDINGS: No pulmonary emboli are identified. There is no thoracic aortic dissection. There is extensive plaque within the descending thoracic aorta. A small hiatal hernia is present. Several mildly enlarged mediastinal lymph nodes are noted. Index right paraesophageal lymph node on image 104 of 271 measures 1.2 x 1.2 cm. There are prominent bilateral hilar lymph nodes. There is no consolidation to suggest pneumonia. There is no pneumothorax or pleural effusion. Old bilateral anterior rib fractures are present. No acute fractures within the bony thorax are identified. IMPRESSION: 1. No pulmonary emboli identified. 2. No consolidation to suggest pneumonia. 3. Several mildly enlarged mediastinal lymph nodes. Prominent bilateral hilar lymph nodes. These are nonspecific and a follow-up chest CT in 6 months is recommended. ACT 112: Negative or not required by law. Electronically signed by: Zaid Jhaveri M.D. 04/24/2022 8:17 PM Discharge Plan Visit Data Chief Complaint: Hypertension Stated Complaint: FALL, HIGH BLOOD PRESSURE,COUGH,FEVER,BLOOD SUGAR ED Provider: José Miguel Nolan Discharge Problem: Elevated troponin, Influenza A, Acute UTI Patient Disposition: Admitted As Inpatient Forms Stand Alone Forms: [facility] Prescriptions Prescriptions: No Action albuterol sulfate 90 mcg/actuation HFA aerosol inhaler See Rx Instructions inhalation Q4H PRN (Reason: sob) Qty: 8.5 5RF Rx Instructions: 1-2 puffs inhalation Q4- 6 hours PRN shortness of breath tamsulosin 0.4 mg capsule 0.4 mg PO DAILY PRN (Reason: BPH) Qty: 30 5RF atorvastatin 20 mg tablet 20 mg PO QPM Qty: 90 3RF multivitamin [Daily Multi-Vitamin] Tablet 1 tab PO DAILY metoprolol succinate 50 mg tablet extended release 24 hr 50 mg PO DAILY Qty: 90 3RF cholecalciferol (vitamin D3) [Vitamin D3] 25 mcg (1,000 unit) tablet 50 mcg PO DAILY doxazosin 1 mg tablet 2 mg PO DAILY Qty: 30 2RF hydroxyzine HCl 25 mg tablet 25 mg PO TID PRN (Reason: itching) Qty: 30 0RF esomeprazole magnesium 20 mg capsule,delayed release(DR/EC) 20 mg PO QAM dicyclomine 20 mg tablet 20 mg PO TID PRN (Reason: abdominal pain) Qty: 9 0RF aspirin [Aspir-Low] 81 mg Tablet,Delayed Release (Dr/Ec) 81 mg PO HS famotidine 20 mg Tablet 20 mg PO BID loratadine [Claritin] 10 mg Tablet 10 mg PO DAILY PRN (Reason: allergies) insulin lispro [Humalog KwikPen Insulin] 100 unit/mL insulin pen 0 unit SUBCUT AC PRN (Reason: sliding scale) insulin glargine [Lantus Solostar U-100 Insulin] 100 unit/mL (3 mL) insulin pen 25 unit SUBCUT QPM fluticasone propionate [Flovent HFA] 44 mcg/actuation HFA aerosol inhaler 2 puff INH DAILY PRN (Reason: Shortness Of Breath Or Wheezing) Referrals Referrals: Rodríguez Rodriges, [Primary Care Provider] -
[2022-04-24] MEDS ORDERED: ACETAMINOPHEN 10MG/ML Custom 1,000 MG in EMPTY BAG 0 ML IV ONE (18:04)
[2022-04-24 18:13] LABS: Basophils # (auto) 0.04 K/uL (0-0.2); Basophils % (auto) 0.4 %; Eosinophils # (auto) 0.05 K/uL (0-0.50); Eosinophils % (auto) 0.5 %; Hematocrit (blood only) 39.9 % (40.1-51.0); Immature Granulocytes # (auto) 0.12 K/uL (0.00-0.02); Immature Granulocytes % (auto) 1.3 %; Lymphocytes # (auto) 0.28 K/uL (1.2-3.4); Mean Corpuscular Hgb Conc 35.1 g/dL (32.0-36.0); Mean Corpuscular Volume 85.4 fL (80.0-100.0); Mean Platelet Volume 9.6 fL (9.4-12.4); Monocytes # (auto) 1.08 K/uL (0.24-0.82); Monocytes % (auto) 11.5 %; Neutrophils # (auto) 7.84 K/uL (1.4-6.5); Neutrophils % (auto) 83.3 %; Platelet Count 236 K/uL (130-400); RDW Coefficient of Variation 13.4 % (11.5-14.5); RDW Standard Deviation 41.1 fL (36.4-46.3); Red Blood Count 4.67 M/uL (4.63-6.08); White Blood Count 9.41 K/ul (4.8-10.8)
[2022-04-24] MEDS ORDERED: ACETAMINOPHEN 1,000 MG/100 ML VIAL IV ONE (18:15)
--- NOTE | 2022-04-24 18:15 | XRay Report ---
XR chest 1V portable HISTORY: 86 years-old Male Sepsis acute sepsis COMPARISON: Chest CT 02/17/2022, chest radiographs 12/12/2018 TECHNIQUE: Portable AP view of the chest FINDINGS: Cardiomediastinal and hilar silhouettes are within normal limits. Atherosclerosis of the aorta. Mild subsegmental left basilar atelectasis. No pneumothorax, pleural effusion, airspace consolidation or o vert pulmonary edema. Degenerative changes of the shoulders and spine. IMPRESSION: No acute process. ACT 112: Negative or not required by law. The above report was generated using voice recognition software. It may contain grammatical, syntax o r spelling errors. Electronically signed by: Stoney Blanchard M.D. 04/24/2022 6:14 PM
[2022-04-24 18:34] LABS: Alanine Aminotransferase 14 U/L (7-52); Albumin Level 4.1 gm/dl (3.4-5.0); Alkaline Phosphatase 116 U/L (34-104); Anion Gap 10 (3-11); Aspartate Aminotransferase 15 U/L (13-39); BUN Creatinine Ratio 11.1 (10-20); Bilirubin Direct 0.3 mg/dl (0-0.2); Bilirubin,Total 0.8 mg/dl (0.2-1.0); Blood Urea Nitrogen 23 mg/dl (6-23); Calcium 8.5 mg/dl (8.5-10.1); Carbon Dioxide 23 mmol/L (21-32); Chloride 102 mmol/L (98-107); Est GFR (African American) 32.9 ml/min; Est GFR (Non-African American) 28.4 ml/min; Glucose 201 mg/dl (70-99(Fasting)); Magnesium 1.7 mg/dl (1.7-2.4); Potassium 4.1 mmol/L (3.5-5.1); Sodium 135 mmol/L (136-145); Total Protein 7.2 gm/dl (6.0-8.3)
[2022-04-24 18:43] LABS: HCO3 VBG 24 mmol/L; Oxygen Saturation VBG < 60.0 %; PCO2 VBG 43 mmHg (38-50); PO2 VBG 17 mmHg; pH VBG 7.35 (7.36-7.41)
[2022-04-24 18:53] LABS: Troponin I High Sensitivity 131.5 pg/ml (0-20)
[2022-04-24] MEDS ORDERED: OPTIRAY 300 500mL IV ONE (19:12)
--- NOTE | 2022-04-24 20:00 | CT Scan Report ---
CT OF THE HEAD WITHOUT CONTRAST CLINICAL HISTORY: Fall. COMPARISON STUDY: Head CT February 04, 2020. CT DOSE: 3431.05 mGy.cm TECHNIQUE: Helical axial images of the head were obtained without IV contrast. Automated exposure con trol was utilized for the study. A dose lowering technique was utilized adhering to the principles o f ALARA. FINDINGS: No acute intracranial hemorrhage, midline shift or mass effect is present. White matter hyp odensity suggests small vessel disease. The ventricular system is unremarkable. The basal cisterns ar e patent. No extra-axial collections are present. There are no findings to suggest acute dural sinus thrombosis or acute territorial infarct. No significant calvarial abnormalities are present. IMPRESSION: 1. No acute intracranial findings. 2. No acute calvarial fracture. ACT 112: Negative or not required by law. Electronically signed by: Zaid Jhaveri M.D. 04/24/2022 7:57 PM
--- NOTE | 2022-04-24 20:07 | CT Scan Report ---
CT OF THE CERVICAL SPINE WITHOUT CONTRAST CLINICAL HISTORY: fall COMPARISON STUDY: No previous studies for comparison. TECHNIQUE: Helical axial images of the cervical spine were obtained without IV contrast. Sagittal a nd coronal reconstructions were viewed. Automated exposure control was utilized for the study. A do se lowering technique was utilized adhering to the principles of ALARA. FINDINGS: Alignment of the cervical spine is anatomic. Vertebral body heights are maintained. No acut e cervical spine fracture or subluxation is present. There is no prevertebral edema. Facet joints are intact. Moderate multilevel degenerative changes are present. IMPRESSION: No acute cervical spine fracture or subluxation. ACT 112: Negative or not required by law. Electronically signed by: Zaid Jhaveri M.D. 04/24/2022 8:05 PM
--- NOTE | 2022-04-24 20:19 | CT Scan Report ---
CT ANGIOGRAPHY OF THE CHEST, PULMONARY EMBOLUS PROTOCOL CLINICAL HISTORY: Sepsis. Falls. COMPARISON STUDY: Chest radiograph performed earlier today. Chest CT February 17, 2022. TECHNIQUE: Following IV administration of 111 mL of Optiray, helical axial images of the chest were o btained utilizing the pulmonary embolus protocol. Maximal intensity projections and sagittal and cor onal reformats were viewed on an independent 3D workstation. IV contrast was administered without co mplication. Automated exposure control was utilized for the study. A dose lowering technique was ut ilized adhering to the principles of ALARA. FINDINGS: No pulmonary emboli are identified. There is no thoracic aortic dissection. There is exten sive plaque within the descending thoracic aorta. A small hiatal hernia is present. Several mildly en larged mediastinal lymph nodes are noted. Index right paraesophageal lymph node on image 104 of 271 m easures 1.2 x 1.2 cm. There are prominent bilateral hilar lymph nodes. There is no consolidation to s uggest pneumonia. There is no pneumothorax or pleural effusion. Old bilateral anterior rib fractures are present. No acute fractures within the bony thorax are identified. IMPRESSION: 1. No pulmonary emboli identified. 2. No consolidation to suggest pneumonia. 3. Several mildly enlarged mediastinal lymph nodes. Prominent bilateral hilar lymph nodes. These are nonspecific and a follow-up chest CT in 6 months is recommended. ACT 112: Negative or not required by law. Electronically signed by: Zaid Jhaveri M.D. 04/24/2022 8:17 PM
[2022-04-24] MEDS ORDERED: ASPIRIN CHEW 324 MG PO STA (20:26)
--- NOTE | 2022-04-24 20:48 | CT Scan Report ---
ABDOMEN AND PELVIS CT WITH IV CONTRAST HISTORY: Acute abdominal trauma status post fall Fall TECHNIQUE: Multiaxial CT images of the abdomen and pelvis were performed following the IV administrat ion of 111 cc of Optiray, A dose lowering technique was utilized adhering to the principles of ALARA . COMPARISON STUDY: CTA chest of same day, CT abdomen and pelvis 04/12/2021 FINDINGS: Mild bibasilar bronchial wall thickening with subsegmental atelectasis. The previously desc ribed solid nodules in the left lower lobe are not definitively seen. No pneumatosis or pneumoperiton eum. Coronary artery calcifications. The spleen measures 14.9 cm in length. Moderately atrophic pancr eas. Punctate calcification of the pancreatic head. Unremarkable adrenal glands. The gallbladder is u nremarkable. The liver is within normal limits. Patency of the hepatic and portal veins. Cysts within the kidneys measure up to 3.9 cm on the right. Intermediate density lesion of the interp olar left kidney measuring 1.8 cm likely also represents a cyst. No hydronephrosis. Urinary bladder w all thickening with perivesicular stranding. Heterogeneity of the enlarged prostate. Small fat filled left inguinal hernia. Atherosclerosis of the aorta without aneurysm or lymphadenopathy. Mildly enlarged lymph nodes of the lower chest with paraesophageal lymph nodes measuring up to 1.2 cm . Small hiatal hernia. No bowel obstruction or bowel wall thickening. Postoperative changes of the la rge bowel. Periumbilical hernia containing a small nonobstructed portion of small bowel. Similar to p rior. Degenerative changes of the spine, pelvis and hips. No definite acute fracture identified. IMPRESSION: 1. No acute posttraumatic intra-abdominal or intrapelvic abnormality. 2. No acute fracture identified. 3. Splenomegaly. 4. Heterogeneous prostamegaly could be correlated with PSA level. Urinary bladder wall thickening sug gestive of chronic bladder outlet obstruction. 5. Additional findings as above. ACT 112: Negative or not required by law. The above report was generated using voice recognition software. It may contain grammatical, syntax o r spelling errors. Electronically signed by: Stoney Blanchard M.D. 04/24/2022 8:47 PM
[2022-04-24] MEDS ORDERED: LABETALOL HCL IV 5 MG/ML 20ML IV STA (20:57)
--- NOTE | 2022-04-24 21:45 | History & Physical Report ---
Date of Service April 24, 2022 Assessment & Plan (1) Influenza: Plan: 86yo male with a history of DM2, CKD3, HTN, and BPH presents with a three-day history of cough and fever, then found to be influenza positive. Influenza Admit to med/surg Tamiflu 75mg bid NSS @ 80mL/hr APAP as-needed for pain or fever DM2 HbA1c 6.9% (10/2020), repeat pending Patient's home regimen held on admission Continue BSG checks, sliding-scale insulin, hypoglycemic protocol HTN: continue home regimen CKD3: IVF as above, avoid nephrotoxins, trend BMP GERD: continue home regimen BPH: continue home regimen FEN: DM2 diet, NSS @ 80mL/hr Code status: full code DVT ppx: SCDs PT/OT: ordered Dispo: med/surg History of Present Illness Primary Care Provider: Rodríguez Rodriges DO 86yo male with a history of DM2, CKD3, HTN, and BPH presents with a three-day history of cough and fever. Patient denies headache, vision changes, CP, palpitations, SOB, edema, abdominal pain, nausea, vomiting, dysuria, hematochezia, melena, back pain, lightheadedness, dizziness, numbness, tingling, weakness, or other symptoms. Patient does note he recently returned from a trip to [place] on 04/21. Upon arrival, vitals were notable for fever, tachycardia, elevated BP, and intermittent tachypnea; spO2 adequate on room air. Initial labs were notable for elevated creatinine (2.1; baseline ~1.5); no anemia, platelets wnl, no additional electrolyte abnormalities, Tbili not elevated, covid PCR negative. Influenza PCR positive. Allergies Allergy/AdvReac Type Severity Reaction Status Date / Time diazepam Allergy Intermediate rash Verified 01/26/22 09:46 morphine Allergy Intermediate hallucinati Verified 01/26/22 09:46 ons baclofen Allergy Unknown Verified 04/24/22 23:19 Home Medications Medication Instructions Recorded Confirmed Type esomeprazole magnesium 20 mg 20 mg PO QAM 03/28/19 04/24/22 History capsule,delayed release multivitamin (Daily Multi-Vitamin 1 tab PO DAILY 12/28/19 04/24/22 History tablet) dicyclomine 20 mg tablet 20 mg PO TID PRN abdominal pain #9 05/05/20 04/24/22 Rx tabs metoprolol succinate 50 mg 50 mg PO DAILY #90 tabs 01/10/21 04/24/22 Rx tablet,extended release 24 hr cholecalciferol (vitamin D3) 25 50 mcg PO DAILY 01/23/21 04/24/22 History mcg (1,000 unit) tablet (Vitamin D3) albuterol sulfate 90 mcg/actuation See Rx Instructions inhalation Q4H 04/23/21 04/24/22 Rx aerosol inhaler PRN sob #8.5 grams atorvastatin 20 mg tablet 20 mg PO QPM #90 tabs 04/28/21 04/24/22 Rx tamsulosin 0.4 mg capsule 0.4 mg PO DAILY PRN BPH #30 caps 04/28/21 04/24/22 Rx doxazosin 1 mg tablet 2 mg PO DAILY #30 tabs 01/26/22 04/24/22 Rx hydroxyzine HCl 25 mg tablet 25 mg PO TID PRN itching #30 tabs 01/26/22 04/24/22 Rx aspirin 81 mg tablet,delayed 81 mg PO HS 04/24/22 04/24/22 History release famotidine 20 mg tablet 20 mg PO BID 04/24/22 04/24/22 History fluticasone propionate 44 2 puff inhalation DAILY PRN 04/24/22 04/24/22 History mcg/actuation HFA aerosol inhaler Shortness Of Breath Or Wheezing (Flovent HFA) insulin glargine 100 unit/mL (3 25 unit subcut QPM 04/24/22 04/24/22 History mL) subcutaneous pen (Lantus Solostar U-100 Insulin) insulin lispro 100 unit/mL 0 unit subcut AC PRN sliding scale 04/24/22 04/24/22 History subcutaneous pen (Humalog KwikPen (U-100) Insulin) loratadine 10 mg tablet (Claritin) 10 mg PO DAILY PRN allergies 04/24/22 04/24/22 History Past Med/Surg History Medical History Anemia BPH with obstruction/lower urinary tract symptoms Calcification of aorta Cardiomegaly COVID-19 Erectile dysfunction Fatty liver GERD without esophagitis Hiatal hernia HTN (hypertension) Low back pain MGUS (monoclonal gammopathy of unknown significance) Osteopenia of spine Stage III chronic kidney disease Type II diabetes mellitus with complication Vitamin D deficiency Surgical History History of appendectomy History of cataract surgery History of incisional hernia repair History of inguinal hernia repair History of laminectomy History of lumpectomy History of partial colectomy Family History Sister Colorectal cancer Denies family history of Ovarian cancer Prostate cancer Myocardial infarction Breast cancer Social History (Updated 01/26/22 @ 10:00 by Manjula Perez LPN) Smoking Status: Never smoker Age Started Using Tobacco: 19; Age Quit Using Tobacco: 19; Second Hand Exposure: No; Hx Alcohol Use: No Hx Substance Use: No Preferred Language: [place]an Communication Ability: Effective Visual Impairment: No Limitations Hearing Ability: Use of Hearing Aid Oral Surgery Assistant Required: No Beliefs That Will Affect Care: None marital status: Current Living Situation: Spouse current occupational status: retired current occupation: Lives 6 months in [place]. Former flores. [place] How many Children do You have: 5 Feels Safe at Home: Yes Childhood Exposure to Second-Hand Smoke: No caffeine: Yes during the past year weight has: decreased > 10 lbs Dental Care, Regularly: Yes Physical Activity Frequency: Does not Exercise Seatbelt Use: sometimes Sunscreen Use: No Assistive Devices: Cane, Denture - Upper and Hearing Aid - Bilateral Physical Exam Physical Exam: Constitutional: tired-appearing, no acute distress HEENT: NCAT, no conjunctival injection CV: regular rhythm, no murmur appreciated, extremities well-perfused, no LE edema Resp: CTABL, no wheezes/rales/rhonchi appreciated, no increased work of breathing GI: soft, nondistended, nontender, BS normoactive MSK: no gross deformities appreciated Skin: warm, dry, no rash appreciated Neuro: alert, oriented, no focal neurologic deficit appreciated Results & Data Results & Data ([facility]) Vital Signs (Past 12 Hours) Vital Signs Temp Pulse Resp BP Pulse Ox O2 Del Method 04/24/22 21:02 101 H 24 141/62 H 96 04/24/22 20:30 106 H 15 158/73 H 93 04/24/22 20:00 101 H 29 H 190/79 H 95 04/24/22 19:36 104 H 24 163/59 H 96 04/24/22 18:30 107 H 26 H 159/65 H 97 04/24/22 17:48 112 H 44 H 196/69 H 94 04/24/22 17:56 95 Room Air 04/24/22 17:33 38.5 C H 110 H 20 149/73 H 96 Room Air Supervising Physician Co-Signing Physician Notes Pt seen/examined with resident MD Benjamin Vernon. Orders and plan of admission discussed with resident. 86 y/o M Hx HTN, HLD, DM II, CKD III. Presenting with cough and fever x 2 days. Labs are notable for ANA, + flu and a trop of 186. There is no evidence of ischemia on EKG. CT chest is negative for PNM. Mediastinal lymphadenopathy is reported. O/E Gen: AAO Head/neck: Atraumatic, No JVD Heart: S1,2 R, no murmurs Lungs/chest: CTAB Abd: NT, ND, BS + Ext: No CCE Neuro: No deficits Skin: No ulcers or rashes P: 1) Influenza - Tamiflu 2) ANA on CKD III - IVF - recheck labs AM 3) HLD - cont atorvastatin 4) HTN- metoprolol 5) DM II - sliding scale 6) Elevated trop - no related symptoms and unlikely primary cardiac - trend - echo if trends up. Full code - Heparin prophylaxis Total time from this admit including review of labs, meds, imaging, records - discussion with pt and ER attending - 48 min Resident Activity Tracking Resident Involvement: Resident Care Provided Care Provided: Adult Hospital Medicine
[2022-04-24 22:08] LABS: Influenza B virus by PCR Negative (Neg); RSV by PCR Negative (Neg); SARS CoV2 RNA(COVID-19) InHosp NEGATIVE (Negative)
[2022-04-24 22:24] LABS: Appearance Urine Turbid (Clear); Bacteria Urine Automated 4+ (Negative); Bilirubin Urine Negative (Negative); Blood Urine 2+ (Negative); Color Urine Yellow; Epithelial Cell Urine Auto >30 /lpf (0-5); Glucose Urine UA Negative (Negative); Ketones Urine Negative (Negative); Leukocyte Esterase Urine 3+ (Negative); Nitrite Urine Negative (Negative); Protein Urine 3+ (Negative); Specific Gravity Urine > 1.045 (1.000-1.030); Urobilinogen Urine Negative (Negative); WBC Urine Automated >30 /hpf (0-5)
[2022-04-24 22:39] LABS: Cast Urine Automated 0 /lpf (0-5)
[2022-04-24 22:44] LABS: Influenza A virus by PCR Positive (Neg)
[2022-04-24] MEDS ORDERED: OSELTAMIVIR PHOSPHATE 75 MG CAP PO STA (23:02)
[2022-04-24] MEDS ORDERED: cefTRIAXone SODIUM 1,000 MG/50 ML BAG IV STA (23:02)
[2022-04-24] MEDS ORDERED: CARBOHYDRATES FOR HYPOGLYCEMIA PO PRN (23:53)
[2022-04-24] MEDS ORDERED: GLUCAGON FOR INJ 1 MG VIAL SQ PRN (23:53)
[2022-04-24] MEDS ORDERED: GLUCOSE 40% GEL 15 GM TUBE PO PRN (23:53)
[2022-04-24] MEDS ORDERED: DEXTROSE 50% 50 ML SYRINGE IV PRN (23:53)
[2022-04-24] MEDS ORDERED: GLUCOSE 10 TAB/TUBE PO PRN (23:53)
[2022-04-24] MEDS ORDERED: SODIUM CHLORIDE 0.9% 1000ML 500 ML IV ONE (23:58)
[2022-04-25] MEDS ORDERED: FLUTICASONE PROP HFA INH 44 MCG INHALER INH PRN (02:03)
[2022-04-25] MEDS ORDERED: TAMSULOSIN HCL 0.4 MG CAP PO PRN (02:03)
[2022-04-25] MEDS ORDERED: ACETAMINOPHEN 325 MG TAB PO PRN (02:03)
[2022-04-25] MEDS ORDERED: ALBUTEROL HFA 8 GM INHALER INH PRN (02:03)
[2022-04-25] MEDS: SODIUM CHLORIDE 0.9% 1000ML 1,000 ML IV SCH ×2 (02:33→13:58)
[2022-04-25] MEDS: ACETAMINOPHEN 500 MG TAB PO SCH ×3 (02:34→18:00)
[2022-04-25] MEDS: HEPARIN SOD 5,000 UNIT/0.5 ML VIAL SQ SCH ×3 (06:42→21:25)
[2022-04-25] MEDS ORDERED: guaiFENesin 600 MG TABCR PO PRN (06:49)
[2022-04-25 06:50] LABS: Hematocrit (blood only) 32.5 % (40.1-51.0); Hemoglobin 11.4 g/dl (14.0-18.0); Mean Corpuscular Hemoglobin 30.2 pg (25.0-34.0); Mean Corpuscular Hgb Conc 35.1 g/dL (32.0-36.0); Mean Platelet Volume 9.6 fL (9.4-12.4); Platelet Count 170 K/uL (130-400); RDW Coefficient of Variation 13.6 % (11.5-14.5); RDW Standard Deviation 42.3 fL (36.4-46.3); Red Blood Count 3.78 M/uL (4.63-6.08)
[2022-04-25 07:31] LABS: Albumin Globulin Ratio 1.4 (0.9-2); Albumin Level 3.2 gm/dl (3.4-5.0); BUN Creatinine Ratio 11.6 (10-20); Bilirubin,Total 0.5 mg/dl (0.2-1.0); Calcium 7.5 mg/dl (8.5-10.1); Creatinine Clr Calc Pharmacy 31.5 ml/min; Est GFR (African American) 33.1 ml/min; Est GFR (Non-African American) 28.6 ml/min; Globulin 2.3 gm/dl (2.5-4.0); Magnesium 1.7 mg/dl (1.7-2.4); Potassium 3.9 mmol/L (3.5-5.1); Total Protein 5.5 gm/dl (6.0-8.3)
[2022-04-25 07:43] LABS: Estimated Average Glucose 157 mg/dl; Hemoglobin A1C 7.1 % (4.5-5.6)
--- NOTE | 2022-04-25 08:21 | Hospitalist Progress Note ---
Date of Service April 25, 2022 Assessment & Plan (1) Influenza: Plan: 86yo male with a history of DM2, CKD3, HTN, and BPH presents with a three-day history of cough and fever, then found to be influenza positive. Influenza, with bronchitis, no pneumonia Tamiflu 30mg bid NSS @ 80mL/hr continues with acute kidney injury APAP as-needed for pain or fever DM2 HbA1c 6.9% (10/2020), repeat pending Patient's home regimen held on admission Continue BSG checks, sliding-scale insulin, hypoglycemic protocol HTN: metoprolol ANA CKD3: IVF as above, avoid nephrotoxins, continue on ivf, has possible bladder outlet issues seen on abdominal CT on doxazosin, add proscar Abnormal UA possible uti, 60,000 colonies gram-negative bacteria. Given history of enlarged prostate diabetes will change to oral levofloxacin 500 daily await sensitivities GERD: continue home regimen BPH: continue home regimen Code status: full code DVT ppx: SCDs PT/OT: ordered Dispo: med/surg Admission and Anticipated Discharge Date Admission Date: April 25, 2022 Subjective Patient in no immediate distress not having any coughing or shortness of breath we did discuss his urinary frequency was but been an issue for him over time Review of Systems Review of Systems: Mild distress and fatigue no headache, no visual changes no speech or swallowing issues no chest pain, pressure or palpitations no shortness of breath, cough or wheezes no abdominal pain, nausea or vomiting, diarrhea or constipation no dysuria, hematuria does complain of frequency no focal joint pain or swelling no back pain, CVA tenderness or radicular pain no bruising, bleeding or rashes no focal signs of weakness or numbness or altered sensation no complaints of anxiety or depression.. Physical Exam Physical Exam: The patient appeared well nourished and normally developed. Vital signs as documented. Head exam is normocephalic atraumatic Neck is without JVD, thyromegaly, or carotid bruits. Lungs are clear to auscultation, no focal loss of breath sounds Cardiac exam, Rhythm is regular.. No murmurs, rubs or gallops. Abdominal exam reveals normal bowel sounds, soft non tender, no masses Extremities are nonedematous and both pedal pulses are present Neurologic exam is alert and oriented, no focal loss of strength or sensation Skin is without bruises or rashes Psychologically is without concerns for anxiety or depression.. Results & Data Results & Data ([facility]) Vital Signs (Past 12 Hours) Vital Signs Temp Pulse Pulse Resp BP BP Pulse Ox 04/25/22 07:19 98.4 F 90 22 164/75 H 97 04/25/22 02:00 98.6 F 98 H 20 173/85 H 99 04/25/22 02:05 04/25/22 01:45 87 18 161/67 H 96 04/25/22 00:00 90 24 162/75 H 98 04/24/22 23:30 90 20 126/65 97 04/24/22 22:30 93 H 26 H 160/75 H 97 04/24/22 22:00 93 H 21 171/69 H 96 04/24/22 21:30 100 H 20 171/68 H 96 04/24/22 21:02 101 H 24 141/62 H 96 04/24/22 20:30 106 H 15 158/73 H 93 O2 Del Method 04/25/22 07:19 Room Air 04/25/22 02:00 Room Air 04/25/22 02:05 Room Air 04/25/22 01:45 Room Air 04/25/22 00:00 Room Air 04/24/22 23:30 Room Air 04/24/22 22:30 04/24/22 22:00 04/24/22 21:30 04/24/22 21:02 04/24/22 20:30 PG Care Time/CCT Total # of Minutes Spent Total Time Spent with Patient: Total time spent is greater than 50% in coordination of care (as documented) at patient's floor/unit and/or counseling patient: Coding Level of Care Code 41590 Subseq Hosp Care Lvl 2 Diagnoses Influenza J11.1
[2022-04-25] MEDS: guaiFENesin 600 MG TABCR PO SCH ×2 (08:44→20:46)
[2022-04-25] MEDS: PANTOprazole 40 MG TAB PO SCH (08:47)
[2022-04-25] MEDS: METOPROLOL SUCC 50MG EXT REL TAB PO SCH (08:47)
[2022-04-25] MEDS: OSELTAMIVIR PHOSPHATE SUSP 30 MG/5 ML UDP PO SCH ×2 (08:47→21:25)
[2022-04-25] MEDS: FAMOTIDINE 20 MG TAB PO SCH (08:47)
[2022-04-25] MEDS: DOXAZosin MESYLATE TAB 2 MG TAB PO SCH ×2 (08:50→20:46)
[2022-04-25] MEDS: FLUTICASONE FUROATE 100MCG 14 PUFFS/INHALER INH SCH (08:54)
[2022-04-25] MEDS ORDERED: DOXAZosin MESYLATE TAB 2 MG TAB PO SCH (09:00)
[2022-04-25] MEDS ORDERED: OSELTAMIVIR PHOSPHATE 75 MG CAP PO SCH (09:00)
[2022-04-25] MEDS: INSULIN ASPART PER UNIT SC SCH ×4 (09:16→21:00)
[2022-04-25] MEDS: FINASTERIDE 5 MG TAB PO SCH (10:31)
--- NOTE | 2022-04-25 12:52 | Electrocardiogram Report ---
Test Reason : Blood Pressure : / mmHG Vent. Rate : 115 BPM Atrial Rate : 115 BPM P-R Int : 162 ms QRS Dur : 118 ms QT Int : 342 ms P-R-T Axes : 074 054 009 degrees QTc Int : 473 ms Sinus tachycardia Right bundle branch block Abnormal ECG When compared with ECG of 11-APR-2021 21:53, Right bundle branch block is now Present Confirmed by Luc Navarro ([id number]) on 04/25/2022 12:52:19 PM Referred By: REFERRED SELF Confirmed By:Luc Navarro
[2022-04-25] MEDS ORDERED: levoFLOXacin 500 MG TAB PO STA (16:25)
[2022-04-25] MEDS ORDERED: ASPIRIN 81 MG ECTAB PO SCH (21:00)
[2022-04-25] MEDS ORDERED: ATORVASTATIN 20 MG TAB PO SCH (21:00)
[2022-04-25] MEDS ORDERED: MELATONIN 3 MG TAB PO PRN (23:32)
[2022-04-26] MEDS: SODIUM CHLORIDE 0.9% 1000ML 1,000 ML IV SCH (02:34)
[2022-04-26] MEDS: ACETAMINOPHEN 500 MG TAB PO SCH ×2 (02:35→10:06)
[2022-04-26 06:18] LABS: Mean Corpuscular Hemoglobin 29.9 pg (25.0-34.0); Mean Corpuscular Hgb Conc 34.4 g/dL (32.0-36.0); Mean Platelet Volume 9.9 fL (9.4-12.4); Platelet Count 157 K/uL (130-400); RDW Coefficient of Variation 13.8 % (11.5-14.5); RDW Standard Deviation 43.8 fL (36.4-46.3); Red Blood Count 3.68 M/uL (4.63-6.08); White Blood Count 4.31 K/ul (4.8-10.8)
[2022-04-26] MEDS: HEPARIN SOD 5,000 UNIT/0.5 ML VIAL SQ SCH ×2 (06:20→13:12)
[2022-04-26 06:35] LABS: BUN Creatinine Ratio 13.4 (10-20); Calcium 7.5 mg/dl (8.5-10.1); Creatinine Clr Calc Pharmacy 30.1 ml/min; Est GFR (African American) 31.3 ml/min
--- NOTE | 2022-04-26 09:04 | Hospitalist Progress Note ---
Date of Service April 26, 2022 Assessment & Plan (1) Influenza: Plan: 86yo male with a history of DM2, CKD3, HTN, and BPH presents with a three-day history of cough and fever, then found to be influenza positive. CT chest is negative for PNA. Mediastinal lymphadenopathy is reported. 6 month f/u CT recommended Influenza, with bronchitis, no pneumonia Tamiflu 30mg bid NSS @ 80mL/hr continues with acute kidney injury APAP as-needed for pain or fever DM2 HbA1c 6.9% (10/2020), repeat pending Patient's home regimen held on admission Continue BSG checks, sliding-scale insulin, hypoglycemic protocol HTN: metoprolol ANA/CKD3: IVF as above, avoid nephrotoxins, continue on ivf, has possible bladder outlet issues seen on abdominal CT on doxazosin, added proscar CR 2.17, but got levaquin 500mg x 1 yesterday, renally dosed for 250mg daily and can continue outpatient Abnormal UA possible uti, 60,000 colonies gram-negative bacteria. Given history of enlarged prostate diabetes will change to oral levofloxacin 500 daily await sensitivities GERD: continue home regimen BPH: continue home regimen Code status: full code DVT ppx: SCDs PT/OT: ordered Dispo: med/surg Admission and Anticipated Discharge Date Admission Date: April 25, 2022 Results & Data Results & Data ([facility]) Vital Signs (Past 12 Hours) Vital Signs Temp Pulse Resp BP Pulse Ox O2 Del Method 04/26/22 07:16 36.7 C 71 20 148/68 H 97 Room Air 04/25/22 23:25 37 C 74 18 144/69 H 96 Room Air PG Care Time/CCT Total # of Minutes Spent Total Time Spent with Patient: Total time spent is greater than 50% in coordination of care (as documented) at patient's floor/unit and/or counseling patient: Coding Diagnoses Influenza J11.1
[2022-04-26] MEDS: METOPROLOL SUCC 50MG EXT REL TAB PO SCH (10:05)
[2022-04-26] MEDS: PANTOprazole 40 MG TAB PO SCH (10:05)
[2022-04-26] MEDS: guaiFENesin 600 MG TABCR PO SCH (10:05)
[2022-04-26] MEDS: DOXAZosin MESYLATE TAB 2 MG TAB PO SCH (10:07)
[2022-04-26] MEDS: FINASTERIDE 5 MG TAB PO SCH (10:08)
[2022-04-26] MEDS: FAMOTIDINE 20 MG TAB PO SCH (10:08)
[2022-04-26] MEDS: FLUTICASONE FUROATE 100MCG 14 PUFFS/INHALER INH SCH (10:09)
[2022-04-26] MEDS: INSULIN ASPART PER UNIT SC SCH ×2 (10:20→13:11)
[2022-04-26] MEDS ORDERED: levoFLOXacin 250 MG TABLET PO SCH (11:00)
--- NOTE | 2022-04-26 11:25 | Discharge Summary ---
Date of Service April 26, 2022 Admission HPI Per Admitting Provider 86yo male with a history of DM2, CKD3, HTN, and BPH presents with a three-day history of cough and fever. Patient denies headache, vision changes, CP, palpitations, SOB, edema, abdominal pain, nausea, vomiting, dysuria, hematochezia, melena, back pain, lightheadedness, dizziness, numbness, tingling, weakness, or other symptoms. Patient does note he recently returned from a trip to [place] on 04/21. Upon arrival, vitals were notable for fever, tachycardia, elevated BP, and intermittent tachypnea; spO2 adequate on room air. Initial labs were notable for elevated creatinine (2.1; baseline ~1.5); no anemia, platelets wnl, no additional electrolyte abnormalities, Tbili not elevated, covid PCR negative. Influenza PCR positive. Admission Exam Per Admitting Provider Constitutional: tired-appearing, no acute distress HEENT: NCAT, no conjunctival injection CV: regular rhythm, no murmur appreciated, extremities well-perfused, no LE edema Resp: CTABL, no wheezes/rales/rhonchi appreciated, no increased work of breathing GI: soft, nondistended, nontender, BS normoactive MSK: no gross deformities appreciated Skin: warm, dry, no rash appreciated Neuro: alert, oriented, no focal neurologic deficit appreciated Principal Diagnosis Influenza UTI Discharge Exam General: WD/WN male sitting up in chair eating breakfast, NAD HEENT: head normocephalic, atraumatic, nasal bogginess, trachea midline without deviation Resp: CTAb, no wheezing, on room air 97% CV: RRR, no m/r/g, no pitting edema/calf tenderness GI: +BS , soft, nontender : no khanna MSK/Neuro: moves all extremities, no focal deficit Psych: AOx3, cooperative Discharge Data Allergies Allergy/AdvReac Type Severity Reaction Status Date / Time diazepam Allergy Intermediate rash Verified 01/26/22 09:46 morphine Allergy Intermediate hallucinati Verified 01/26/22 09:46 ons baclofen Allergy Unknown Verified 04/24/22 23:19 Consultations 04/24/22 21:03 ED Decision to Admit Stat Ordered Studies Chest X-Ray 04/24/22 17:53 XR chest 1V portable HISTORY: 86 years-old Male Sepsis acute sepsis COMPARISON: Chest CT 02/17/2022, chest radiographs 12/12/2018 TECHNIQUE: Portable AP view of the chest FINDINGS: Cardiomediastinal and hilar silhouettes are within normal limits. Atherosclerosis of the aorta. Mild subsegmental left basilar atelectasis. No pneumothorax, pleural effusion, airspace consolidation or overt pulmonary edema. Degenerative changes of the shoulders and spine. IMPRESSION: No acute process. ACT 112: Negative or not required by law. The above report was generated using voice recognition software. It may contain grammatical, syntax or spelling errors. Electronically signed by: Stoney Blanchard M.D. 04/24/2022 6:[address] 04/24/22 18:02 CT OF THE CERVICAL SPINE WITHOUT CONTRAST CLINICAL HISTORY: fall COMPARISON STUDY: No previous studies for comparison. TECHNIQUE: Helical axial images of the cervical spine were obtained without IV contrast. Sagittal and coronal reconstructions were viewed. Automated exposure control was utilized for the study. A dose lowering technique was utilized adhering to the principles of ALARA. FINDINGS: Alignment of the cervical spine is anatomic. Vertebral body heights are maintained. No acute cervical spine fracture or subluxation is present. There is no prevertebral edema. Facet joints are intact. Moderate multilevel degenerative changes are present. IMPRESSION: No acute cervical spine fracture or subluxation. ACT 112: Negative or not required by law. Electronically signed by: Zadi Jhaveri M.D. 04/24/2022 8:[address] 04/24/22 18:02 CT OF THE HEAD WITHOUT CONTRAST CLINICAL HISTORY: Fall. COMPARISON STUDY: Head CT February 04, 2020. CT DOSE: 3431.05 mGy.cm TECHNIQUE: Helical axial images of the head were obtained without IV contrast. Automated exposure control was utilized for the study. A dose lowering technique was utilized adhering to the principles of ALARA. FINDINGS: No acute intracranial hemorrhage, midline shift or mass effect is present. White matter hypodensity suggests small vessel disease. The ventricular system is unremarkable. The basal cisterns are patent. No extra-axial collections are present. There are no findings to suggest acute dural sinus thrombosis or acute territorial infarct. No significant calvarial abnormalities are present. IMPRESSION: 1. No acute intracranial findings. 2. No acute calvarial fracture. ACT 112: Negative or not required by law. Electronically signed by: Zaid Jhaveri M.D. 04/24/2022 7:57 PM Abdomen/Pelvis CT 04/24/22 18:[address] WITH IV CONTRAST HISTORY: Acute abdominal trauma status post fall Fall TECHNIQUE: Multiaxial CT images of the abdomen and pelvis were performed following the IV administration of 111 cc of Optiray, A dose lowering technique was utilized adhering to the principles of ALARA. COMPARISON STUDY: CTA chest of same day, CT abdomen and pelvis 04/12/2021 FINDINGS: Mild bibasilar bronchial wall thickening with subsegmental atelectasis. The previously described solid nodules in the left lower lobe are not definitively seen. No pneumatosis or pneumoperitoneum. Coronary artery calcifications. The spleen measures 14.9 cm in length. Moderately atrophic pa ncreas. Punctate calcification of the pancreatic head. Unremarkable adrenal glands. The gallbladder is unremarkable. The liver is within normal limits. Patency of the hepatic and portal veins. Cysts within the kidneys measure up to 3.9 cm on the right. Intermediate density lesion of the interpolar left kidney measuring 1.8 cm likely also represents a cyst. No hydronephrosis. Urinary bladder wall thickening with perivesicular stranding. Heterogeneity of the enlarged prostate. Small fat filled left inguinal hernia. Atherosclerosis of the aorta without aneurysm or lymphadenopathy. Mildly enlarged lymph nodes of the lower chest with paraesophageal lymph nodes measuring up to 1.2 cm. Small hiatal hernia. No bowel obstruction or bowel wall thickening. Postoperative changes of the large bowel. Periumbilical hernia containing a small nonobstructed portion of small bowel. Similar to prior. Degenerative changes of the spine, pelvis and hips. No definite acute fracture identified. IMPRESSION: 1. No acute posttraumatic intra-abdominal or intrapelvic abnormality. 2. No acute fracture identified. 3. Splenomegaly. 4. Heterogeneous prostamegaly could be correlated with PSA level. Urinary bladder wall thickening suggestive of chronic bladder outlet obstruction. 5. Additional findings as above. ACT 112: Negative or not required by law. The above report was generated using voice recognition software. It may contain grammatical, syntax or spelling errors. Electronically signed by: Stoney Blanchard M.D. 04/24/2022 8:47 PM Chest CTA 04/24/22 18:55 CT ANGIOGRAPHY OF THE CHEST, PULMONARY EMBOLUS PROTOCOL CLINICAL HISTORY: Sepsis. Falls. COMPARISON STUDY: Chest radiograph performed earlier today. Chest CT February 17, 2022. TECHNIQUE: Following IV administration of 111 mL of Optiray, helical axial images of the chest were obtained utilizing the pulmonary embolus protocol. Maximal intensity projections and sagittal and coronal reformats were viewed on an independent 3D workstation. IV contrast was administered without complication. Automated exposure control was utilized for the study. A dose lowering technique was utilized adhering to the principles of ALARA. FINDINGS: No pulmonary emboli are identified. There is no thoracic aortic dissection. There is extensive plaque within the descending thoracic aorta. A small hiatal hernia is present. Several mildly enlarged mediastinal lymph nodes are noted. Index right paraesophageal lymph node on image 104 of 271 measures 1.2 x 1.2 cm. There are prominent bilateral hilar lymph nodes. There is no consolidation to suggest pneumonia. There is no pneumothorax or pleural effusion. Old bilateral anterior rib fractures are present. No acute fractures within the bony thorax are identified. IMPRESSION: 1. No pulmonary emboli identified. 2. No consolidation to suggest pneumonia. 3. Several mildly enlarged mediastinal lymph nodes. Prominent bilateral hilar lymph nodes. These are nonspecific and a follow-up chest CT in 6 months is recommended. ACT 112: Negative or not required by law. Electronically signed by: Zaid Jhaveri M.D. 04/24/2022 8:17 PM Hospital Course (1) Influenza: 86yo male with a history of DM2, CKD3, HTN, and BPH presents with a three-day history of cough and fever, then found to be influenza positive. CT chest is negative for PNA. Mediastinal lymphadenopathy is reported. 6 month f/u CT recommended Influenza, with bronchitis, no pneumonia Tamiflu 30mg bid -- continue at d/c for 5 day course. Spoke with pharmacist and change to PO from liquid formulation Had been on continuous IVF, Cr slightly improved on repeat this afternoon prior to discharge but did discuss keeping patient inpatient and continue to monitor labs in AM but he stated improvement in PO intake and wanting to go home and push fluids at home. Repeat lab slips provided for Wednesday to ensure continued stability and f/u PCP and Nephrology in next 1-2 weeks Pain/fever control Supportive care Remained stable on RA, 97% Continue incentive spirometer at discharge as well as albuterol HFA Do suspect patient has element of underlying allergies and rec outpatient ref to allergy/immunology in follow up Of note, CT chest on admit negative for pneumonia, but did note mediastinal lymphadenopathy and recommend repeat chest imaging in 6 months in follow up to ensure resolution. No hypercalcemia on admit to suggest sarcoid, did endorse hx protein in urine and continued surveillance the Dr Malave from Nephrology. Also, patient did endorse having COVID-19 TWICE winter 2020 ANA/CKD3/UTI secondary to infection/dehydration/UTI as above, also with possible bladder outlet issues seen on CTAP on doxazosin, added proscar -- sent rx at discharge Cr 2.17 AM 04/26 however patient reported good PO intake and increased urination/clear in color Continued on IVF while inpatient through the morning and encouraged to push PO fluids at discharge and return if any darkened urine, decreased output, or for any concerns for inability to keep up with oral hydration Also recommended that he avoid tea to prevent diuretic effect (had been sipping on tea all morning) Also Cr rise could be combination of bladder outlet issue as well as levaquin 500mg x1 dose, subsequently renally dosed to 250mg daily. Continued additional 3 days after today to complete 5 days for klebsiella UTI (pansensitive except to Nitrofurantoin) Would also work up anemia outpatient as suspect contributing to CKD as well (no iron level in system at all) Elevated troponin: Troponin elevated to 131.5 on admit--> 186.4 EKG w/o ischemic changes/ST elevation. EKG Sinus tachycardia, RBBB CTA negative for PE Denied CP but rather SOB on admission Suspect elevated troponin secondary to demand ischemia from infection/ dehydration Repeat trended down to 181.9 on third set, however added to AM labs after hydration and continuing to trend down 90.9 Recommend outpatient follow up/echo outpatient if not done recently Anemia Of note, review of chart with patient with chronic peripheral neuropathy. No recent B12 in system. Would check along with iron studies in follow up with PCP, which can be done on outpatient basis Hgb 14 on admit, however with dehydration. No bleeding reported on admission * Baseline appears to be 11-12s, did have report of darkened stool during PCP visit with Rony Rodriguez April 2020, but was taking pepto-bismol * Review of CTAP which did note mildly enlarged lymph nodes of lower chest with paraesophageal lymph nodes measuring up to 1.2cm . Given such, would recommend PCP ref to GI for consideration of EGD/c-scope No supraclavicular lymphadenopathy on exam, however on esomeprazole/pepcid daily and would at the least have f/u for consideration for EGD DM2 Prior A1c 6.9, repeat 7.1 Home regimen held inpatient, SSI utilized. Resumed home meds at d/c HTN: metoprolol continued BP 148/68 prior to discharge used to be on lisinopril/spironolactone in the past per outpatient internal med note GERD: continued home regimen BPH: continued home regimen DVT Proph while inpatient: SCDs, ambulation Total Time Total Time Spent Total Time Spent (In Minutes): 50 Discharge Plan Discharge Items Patient Disposition: Home - Self-Care Reason For Visit: INFLUENZA Discharge Diagnosis: Influenza, UTI Goals: You have been hospitalized for an urgent problem which required surgery. During your stay at [facility], we have made an effort to correct the problem that brought you to the hospital while keeping you as comfortable as possible. Surgery and medications were used to bring your condition under control and your discharge instructions will include directions for any medications you should take after leaving the hospital. Please make sure to follow the advice of your surgeon regarding follow up with the surgeon and with your primary care provider. Activity: As commented below Non-emergency contact: Primary Care Provider and Orthopedic Mechanic Call non-emergency contact if: you have any medication questions, your symptoms worsen and you have a fever Follow-up/Referrals: Papi Malave MD [Physician] - (1 week) Rodríguez Rodriges DO [Primary Care Provider] - Diet: Heart Healthy Ambulatory Orders: Basic Metabolic Panel (Routine) Timeframe: [id number] Location: Determined by Patient Ordered By: Janet Maldonado Attending Provider Instructions: You have been hospitalized for shortness of breath and found to be positive for the flu. Imaging of the chest was negative for blood clot but did note some enlarged lymph nodes that could be reactive from the flu but recommend repeat imaging in six months to ensure resolution. You were treated conservatively with IVF for dehydration and stated keeping up with oral fluids. You will continue tamiflu for total of five days, four additional days remain. Continue the incentive spirometer to prevent any pneumonia (no pneumonia on imaging) and have also been sent an albuterol inhaler to use as needed for shortness of breath. You also had evidence of enlarged prostate and urinary tract infection. You were started on proscar daily, and given antibiotics with Levaquin. You received two doses of antibiotics and should continue daily for 3 more days which will begin tomorrow. Please hold off on taking any hydroxyzine while taking these medications to prevent prolongation of your heart conduction. You will need to continue to push oral fluids and ensure staying hydrated. discussed, your kidney numbers were slightly higher than your baseline and offered to keep overnight for continued hydration however you did decline this and wanting to go home. Given reports for good oral intake and urine clear yellow in color , repeat labs have been ordered for this week to ensure these are improved. Please continue to wear mask/wash hand for the next week as you are still contagious for next several days. Please repeat labs on Wednesday and follow up with primary care and nephrology next week. Please return to the ER with any increased shortness of breath, chest pain, inability to ambulate or for any other symptoms concerning for you. Joel Record Keeper Provider Instructions: CT chest on presentation :Several mildly enlarged mediastinal lymph nodes. Prominent bilateral hilar lymph nodes. These are nonspecific and a follow-up chest CT in 6 months is recommended. Pending Studies at Discharge: Yes Stand-Alone Forms: My [facility] Medications and DC Order Prescriptions: New levofloxacin 250 mg Tablet 250 mg PO DAILY@1100 Qty: 3 0RF oseltamivir [Tamiflu] 6 mg/mL Suspension For Reconstitution 30 mg PO BID Qty: 7 0RF finasteride [Proscar] 5 mg Tablet 5 mg PO QAM 30 Days Qty: 30 0RF guaifenesin [Mucinex] 600 mg Tablet Extended Release 12hr 600 mg PO Q12 Qty: 14 0RF Continued tamsulosin 0.4 mg capsule 0.4 mg PO DAILY PRN (Reason: BPH) Qty: 30 5RF atorvastatin 20 mg tablet 20 mg PO QPM Qty: 90 3RF multivitamin [Daily Multi-Vitamin] Tablet 1 tab PO DAILY metoprolol succinate 50 mg tablet extended release 24 hr 50 mg PO DAILY Qty: 90 3RF cholecalciferol (vitamin D3) [Vitamin D3] 25 mcg (1,000 unit) tablet 50 mcg PO DAILY doxazosin 1 mg tablet 2 mg PO DAILY Qty: 30 2RF hydroxyzine HCl 25 mg tablet 25 mg PO TID PRN (Reason: itching) Qty: 30 0RF esomeprazole magnesium 20 mg capsule,delayed release(DR/EC) 20 mg PO QAM dicyclomine 20 mg tablet 20 mg PO TID PRN (Reason: abdominal pain) Qty: 9 0RF aspirin 81 mg Tablet,Delayed Release (Dr/Ec) 81 mg PO HS famotidine 20 mg Tablet 20 mg PO BID loratadine [Claritin] 10 mg Tablet 10 mg PO DAILY PRN (Reason: allergies) insulin lispro [Humalog KwikPen Insulin] 100 unit/mL insulin pen 0 unit SUBCUT AC PRN (Reason: sliding scale) insulin glargine [Lantus Solostar U-100 Insulin] 100 unit/mL (3 mL) insulin pen 25 unit SUBCUT QPM fluticasone propionate [Flovent HFA] 44 mcg/actuation HFA aerosol inhaler 2 puff INH DAILY PRN (Reason: Shortness Of Breath Or Wheezing) albuterol sulfate 90 mcg/actuation HFA aerosol inhaler See Rx Instructions inhalation Q4H PRN (Reason: sob) Qty: 8.5 5RF Rx Instructions: 1-2 puffs inhalation Q4- 6 hours PRN shortness of breath Discharge Orders: Discharge Order (Routine); Ordered 04/26/22 Ordered By: Janet Bautista/Other Patient Handouts: Managing Type 2 Diabetes Admission Data Admit Date/Time: 04/25/22 00:09 Attending Provider: Barney Brown Admit Provider: Benjamin Vernon Primary Care Provider: Rodríguez Rodriges Other Providers: Manan Grant Other Interventions: Discharge Summary Assessment (RN) Last Done: 04/26/22 14:05 Coding Level of Care Code 17487 OBS Care - Discharge Diagnoses Influenza J11.1
[2022-04-26] MEDS ORDERED: MAGNESIUM SULFATE / D5W 1 GM/100 ML BAG IV ONE (11:30)
[2022-04-26] MEDS: OSELTAMIVIR PHOSPHATE SUSP 30 MG/5 ML UDP PO SCH (11:41)
[2022-04-26 11:52] LABS: Troponin I High Sensitivity 90.9 pg/ml (0-20)
[2022-04-26 12:15] LABS: Magnesium 1.8 mg/dl (1.7-2.4)
[2022-04-26 13:06] LABS: BUN Creatinine Ratio 13.4 (10-20); Calcium 7.4 mg/dl (8.5-10.1); Creatinine Clr Calc Pharmacy 31.2 ml/min; Est GFR (African American) 32.7 ml/min; Est GFR (Non-African American) 28.2 ml/min; Potassium 4.1 mmol/L (3.5-5.1)
== END 2022-04-26 16:34 | disposition home or self-care (01) ==
LOC: ED 16:34 → 3E 16:34 → SUATTDRO 04-25 00:09 → 3E 04-25 01:45

== ENCOUNTER 2024-01-16 18:20 | Inpatient (IN) ==
[2024-01-16] MEDS: fentaNYL citrate PF 100 MCG/2 ML VIAL IV STA ×2 (18:44→19:56)
[2024-01-16 18:57] LABS: Basophils # (auto) 0.04 K/uL (0.00-0.20); Basophils % (auto) 0.4 %; Eosinophils # (auto) 0.36 K/uL (0.00-0.50); Eosinophils % (auto) 3.3 %; Hematocrit (blood only) 39.9 % (42.0-52.0); Immature Granulocytes # (auto) 0.16 K/uL (0.01-0.20); Immature Granulocytes % (auto) 1.5 %; Lymphocytes # (auto) 0.91 K/uL (1.20-3.40); Lymphocytes % (auto) 8.4 %; Mean Corpuscular Hemoglobin 29.9 pg (25.0-34.0); Mean Corpuscular Hgb Conc 35.1 g/dL (32.0-36.0); Mean Corpuscular Volume 85.1 fL (80.0-100.0); Mean Platelet Volume 9.8 fL (9.4-12.4); Monocytes # (auto) 0.96 K/uL (0.11-0.59); Monocytes % (auto) 8.9 %; Neutrophils # (auto) 8.34 K/uL (1.40-6.50); Neutrophils % (auto) 77.5 %; Platelet Count 200 K/uL (130-400); RDW Coefficient of Variation 13.4 % (11.5-14.5); RDW Standard Deviation 41.2 fL (36.4-46.3); Red Blood Count 4.69 M/uL (4.70-6.10); White Blood Count 10.77 K/ul (4.8-10.8)
--- NOTE | 2024-01-16 19:06 | XRay Report ---
XR hip RT 2V w pelvis CLINICAL HISTORY: fall, pain COMPARISON: CT of the abdomen and pelvis April 24, 2022. FINDINGS: There is an acute minimally displaced intertrochanteric fracture of the right femur. No ad ditional acute fractures are identified. Sacroiliac joints and symphysis pubis are intact. There are no osseous lesions. IMPRESSION: Acute minimally displaced intertrochanteric fracture of the right femur. ACT 112: Negative or not required by law. Electronically signed by: Zaid Jhaveri M.D. 01/16/2024 7:04 PM
[2024-01-16 19:15] LABS: Albumin Globulin Ratio 1.1 (0.9-2); Albumin Level 3.4 gm/dl (3.4-5.0); BUN Creatinine Ratio 17.7 (10-20); Bilirubin,Total 0.7 mg/dl (0.2-1.0); Calcium 8.2 mg/dl (8.6-10.3); Creatinine Clr Calc Pharmacy 43.4 ml/min; Est GFR (African American) 49.4 ml/min; Est GFR (Non-African American) 42.6 ml/min; Globulin 3.1 gm/dl (2.5-4.0); Potassium 4.2 mmol/L (3.5-5.1); Total Protein 6.5 gm/dl (6.0-8.3)
--- NOTE | 2024-01-16 19:17 | XRay Report ---
SUPINE PORTABLE AP CHEST RADIOGRAPH CLINICAL HISTORY: fall COMPARISON STUDY: Chest CT March 24, 2023. Chest radiograph March 31, 2023. FINDINGS: No pneumothorax or pleural effusion is identified on supine exam. There is no evidence for pulmonary edema. There is mild cardiomegaly. No consolidation is identified to suggest pneumonia. IMPRESSION: No acute cardiopulmonary findings. ACT 112: Negative or not required by law. Electronically signed by: Zaid Jhaveri M.D. 01/16/2024 7:15 PM
[2024-01-16 19:21] LABS: INR 1.2 (0.9-1.1); Prothrombin Time 12.4 Seconds (9.0-12.0)
--- NOTE | 2024-01-16 19:33 | Emergency Department Note ---
Impression & Plan Closed fracture of right hip, Fall, A-fib, Anticoagulant long-term use ED Provider Note Provider: Simon Galindo MD DATE OF SERVICE: 01/16/2024 CHIEF COMPLAINT: Fall HISTORY OF PRESENT ILLNESS: Patient is a 88-year-old gentleman history of CVA, atrial flutter on Pradaxa, type 2 diabetes, CKD, BPH, hypertension presenting via ambulance today. Patient evidently getting out of a car and fell. Thinks he lost his balance. Does not think he hit his head or lose consciousness. Significant pain in the right hip received in a prior to arrival. Denies other significant pain in the head, neck, chest, back, or abdomen. Denies significant pain in the right foot or knee. Unable to stand or move his right hip. No history of surgeries here. Did take his Pradaxa this morning. Denies palpitations to his recollection. PAST MEDICAL HISTORY: As noted above MEDICATIONS: Reviewed home medications SOCIAL HISTORY: Former smoker PHYSICAL EXAM: GENERAL: alert and oriented in no acute distress on stretcher Head: normocephalic and atraumatic EYES: No injection, discharge or icterus. PERRL, EOMI. NECK: Trachea midline. Supple without midline cervical tenderness ENT: Mucous membranes pink and moist. LUNGS: Airway patent. No retractions. Breath sounds clear with good air entry bilaterally. HEART: Regular rate and irregular rhythm. No chest wall tenderness ABDOMEN: Soft and non-tender, without guarding or rebound. No masses appreciable. No flank tenderness. SKIN: Acyanotic, warm, dry, without rashes EXTREMITIES: Without swelling, tenderness or deformity significant pain surrounding the right hip and pain with any attempts to movement here. No significant tenderness of the right knee lower leg or foot. Intact gross sensation to the right lower leg. NEUROLOGICAL: No aphasia. No facial droop or slurred speech. Gross sensation intact in all 4 extremities. Limited mobility and movement in the right lower leg secondary to pain of the hip. EK bpm atrial fibrillation. No acute ST segment elevation or depression with a QTc of 450. CONTINUOUS CARDIAC MONITORING: was ordered and showed a heart rate of 70s-80s bpm in atrial fibrillation Patient's laboratory studies and imaging reviewed. Differential includes Fracture, dislocation, contusion, intra-abdominal, pneumothorax, intrathoracic, intracranial, neurologic, compartment syndrome, rhabdomyolysis, as well as other pathologies. IMPRESSION/MEDICAL DECISION MAKING: No evidence of significant trauma on exam other than significant pain and some swelling of the right hip region. No dislocation or evidence of vascular compromise or open fracture to the right lower extremity.. CT head completed given use of blood thinners and fall. Blood work obtained that did not seem syncopal likely more mechanical. X-ray does confirm right intertrochanteric hip fracture. Blood work here without significant leukocytosis or anemia. Very mild hyponatremia 134 still improved kidney function or creatinine 1.4 today. Troponin 31 appears stable compared to previous. CK not elevated doubt rhabdomyolysis. No LFT abnormalities. Believe any chest or abdominal CT at this time. Doubt intra-abdominal bleeding at this point. Discussed with orthopedics finding of the fracture and need for surgical repair. Given additional IV fentanyl for pain updated family and contacted the hospitalist for admission. DIAGNOSIS: Fall, right hip fracture, atrial fibrillation, long-term anticoagulation DISPOSITION: Hospitalist will evaluate Patient was agreeable with this plan. Past Med/Surg History Problem List (Updated 01/16/24 @ 22:33 by Simon Galindo M.D.) Anticoagulant long-term use (Acute) A-fib (Acute) Fall (Acute) Closed fracture of right hip (Acute) Closed right hip fracture Wound of foot Atrial fibrillation Fall History of CVA (cerebrovascular accident) Elevated prostate specific antigen (PSA) ANA (acute kidney injury) Atrial flutter by electrocardiogram Hyperkalemia (Acute) Abnormal EKG UTI (urinary tract infection) Pleural effusion Chest pain at rest RODRIGUEZ (dyspnea on exertion) Influenza Pulmonary nodule, left Urge incontinence of urine DVT prophylaxis Abnormal CT of the abdomen Encephalopathy Adverse reaction to drug (Acute) Altered mental status (Acute) Toxic encephalopathy Fungal toenail infection Vitamin D deficiency (Chronic) Type II diabetes mellitus with complication (Chronic) Stage III chronic kidney disease (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) Hiatal hernia (Chronic) GERD without esophagitis (Chronic) Erectile dysfunction (Chronic) BPH with obstruction/lower urinary tract symptoms (Chronic) HTN (hypertension) (Chronic) Medical History COVID-19 Osteopenia of spine Low back pain Fatty liver Cardiomegaly Calcification of aorta Anemia Surgical History History of cataract surgery History of appendectomy History of lumpectomy History of incisional hernia repair History of inguinal hernia repair History of laminectomy History of partial colectomy Family History Sister Colorectal cancer Denies family history of Ovarian cancer Prostate cancer Myocardial infarction Breast cancer Social History Smoking Status: Former smoker Tobacco Type: Cigarettes Age Started Using Tobacco: 19; Age Quit Using Tobacco: 19; Second Hand Exposure: No; Do You Dip or Chew Tobacco: No; Hx Alcohol Use: No Hx Substance Use: No Preferred Language: Albanian Communication Ability: Effective Visual Impairment: No Limitations Hearing Ability: Use of Hearing Aid Web Art Director Required: No Beliefs That Will Affect Care: None marital status: Current Living Situation: Spouse Current Living Situation Comment: lives in [facility] home with current occupational status: retired current occupation: Lives 6 months in [place]. Former flores. [employer] horses How many Children do You have: 5 Feels Safe at Home: Yes Childhood Exposure to Second-Hand Smoke: No Diet: diabetic caffeine: Yes during the past year weight has: decreased > 10 lbs Dental Care, Regularly: Yes Physical Activity Frequency: Does not Exercise Seatbelt Use: sometimes Sunscreen Use: No Assistive Devices: Cane, Scooter/Electric Scooter and Walker Allergies Allergies Allergy/AdvReac Type Severity Reaction Status Date / Time diazepam Allergy Intermediate rash Verified 01/16/24 19:59 baclofen Allergy Unknown CAN'T Verified 01/16/24 19:59 REMEMBER sulfamethoxazole AdvReac Severe SEE COMMENT Verified 01/16/24 19:59 [From Bactrim] trimethoprim [From Bactrim] AdvReac Severe SEE COMMENT Verified 01/16/24 19:59 morphine AdvReac Intermediate hallucinati Verified 01/16/24 19:59 ons prednisone AdvReac Intermediate INCREASED Verified 01/16/24 21:29 BP, INCREASED BS Home Meds Home Medications Medication Instructions Recorded Confirmed multivitamin (Daily Multi-Vitamin 1 tab PO DAILY 12/28/19 01/16/24 tablet) loratadine 10 mg tablet (Claritin) 10 mg PO DAILY PRN allergies 04/24/22 01/16/24 aspirin 81 mg tablet,delayed 81 mg PO DAILY 12/21/23 01/16/24 release insulin glargine 100 unit/mL (3 17 unit subcut QPM 12/21/23 01/16/24 mL) subcutaneous pen (Lantus Solostar U-100 Insulin) insulin lispro 100 unit/mL 1 sliding scale dose subcut TID 12/21/23 01/16/24 subcutaneous pen (Humalog KwikPen (U-100) Insulin) olmesartan 5 mg tablet 5 mg PO DAILY 12/21/23 01/16/24 ascorbic acid (vitamin C) 1,000 mg 1 g PO DAILY 12/23/23 01/16/24 tablet cholecalciferol (vitamin D3) 125 125 mcg PO DAILY 12/23/23 01/16/24 mcg (5,000 unit) capsule omeprazole 20 mg tablet,delayed 20 mg PO PM 12/23/23 01/16/24 release sertraline 50 mg tablet 100 mg PO DAILY 12/23/23 01/16/24 simethicone 125 mg capsule 125 mg PO DAILY PRN GAS DISCOMFORT 12/23/23 01/16/24 solifenacin 5 mg tablet 5 mg PO DAILY 12/23/23 01/16/24 tolterodine 2 mg tablet 2 mg PO DAILY 12/23/23 01/16/24 triamcinolone acetonide 0.1 % 1 applic topical DAILY PRN Skin 12/23/23 01/16/24 topical cream Irritation albuterol sulfate 90 mcg/actuation 1 - 2 inh inhalation .Q4-6HR PRN 01/16/24 01/16/24 aerosol inhaler Shortness Of Breath calcium carbonate (Calcium 600) 600 mg PO DAILY 01/16/24 01/16/24 Previous Rx's Medication Instructions Recorded metoprolol succinate 50 mg 50 mg PO DAILY #90 tabs 01/10/21 tablet,extended release 24 hr atorvastatin 20 mg tablet 20 mg PO QPM #90 tabs 04/28/21 furosemide 20 mg tablet 20 mg PO DAILY #30 tabs 03/25/23 amlodipine 5 mg tablet 5 mg PO BID #60 tabs 04/07/23 Pradaxa 150 mg capsule (dabigatran 150 mg PO BID 15 days #30 caps 12/23/23 etexilate) dabigatran etexilate 150 mg capsule 150 mg PO BID #60 caps 12/23/23 Blood pressure cuff #1 ea 01/04/24 Results & Data (ED) Vital Signs Vital Signs - 24 hr 01/16/24 18:13 01/16/24 18:13 01/16/24 18:30 Temperature 36.7 C 36.7 C Temperature Source Oral Oral Pulse Rate 83 Pulse Rate [Apical] 85 Respiratory Rate 16 18 Respiratory Effort / Characteristics Non-Labored Spontaneous Respiratory Depth Normal Normal Respiratory Pattern Regular Blood Pressure 194/127 H Blood Pressure [Left Arm] 194/127 H Blood Pressure Mean 149 Blood Pressure Mean [Left Arm] 149 Blood Pressure Position Lying Pulse Oximetry 94 94 92 Oxygen Delivery Method Room Air Room Air Room Air Oxygen Flow Rate Sepsis Recent Fever Within 48 Hours No Sepsis New/Unexplained Change in Mental Status No Sepsis Action Taken by Nursing No Action Required 01/16/24 18:38 01/16/24 19:59 01/16/24 21:08 Temperature Temperature Source Pulse Rate 78 Pulse Rate [Apical] 91 H 86 Respiratory Rate 18 24 Respiratory Effort / Characteristics Respiratory Depth Respiratory Pattern Blood Pressure Blood Pressure [Left Arm] 193/108 H 182/108 H Blood Pressure Mean Blood Pressure Mean [Left Arm] 136 132 Blood Pressure Position Pulse Oximetry 95 100 Oxygen Delivery Method Nasal Cannula Nasal Cannula Oxygen Flow Rate 2 2 Sepsis Recent Fever Within 48 Hours Sepsis New/Unexplained Change in Mental Status Sepsis Action Taken by Nursing 01/16/24 22:27 Temperature Temperature Source Pulse Rate Pulse Rate [Apical] 86 Respiratory Rate 16 Respiratory Effort / Characteristics Respiratory Depth Respiratory Pattern Blood Pressure Blood Pressure [Left Arm] 175/106 H Blood Pressure Mean Blood Pressure Mean [Left Arm] 129 Blood Pressure Position Pulse Oximetry 98 Oxygen Delivery Method Nasal Cannula Oxygen Flow Rate 2 Sepsis Recent Fever Within 48 Hours Sepsis New/Unexplained Change in Mental Status Sepsis Action Taken by Nursing Laboratory Data 01/16/24 18:42 01/16/24 18:42 Lab Results 01/16/24 01/16/24 01/16/24 Range/Units 18:42 20:22 21:10 WBC 10.77 (4.8-10.8) K/ul RBC 4.69 L (4.70-6.10) M/uL Hgb 14.0 (14.0-18.0) g/dl Hct 39.9 L (42.0-52.0) % MCV 85.1 (80.0-100.0) fL MCH 29.9 (25.0-34.0) pg MCHC 35.1 (32.0-36.0) g/dL RDW Std Deviation 41.2 (36.4-46.3) fL RDW Coeff of Nilesh 13.4 (11.5-14.5) % Plt Count 200 (130-400) K/uL MPV 9.8 (9.4-12.4) fL Immature Gran % (Auto) 1.5 % Neut % (Auto) 77.5 % Lymph % (Auto) 8.4 % [place] % (Auto) 8.9 % Eos % (Auto) 3.3 % Baso % (Auto) 0.4 % Neut # (Auto) 8.34 H (1.40-6.50) K/uL Lymph # (Auto) 0.91 L (1.20-3.40) K/uL [place] # (Auto) 0.96 H (0.11-0.59) K/uL Eos # (Auto) 0.36 (0.00-0.50) K/uL Baso # (Auto) 0.04 (0.00-0.20) K/uL Immature Gran # (Auto) 0.16 (0.01-0.20) K/uL PT 12.4 H (9.0-12.0) Seconds INR 1.2 H (0.9-1.1) Sodium 134 L (136-145) mmol/L Potassium 4.2 (3.5-5.1) mmol/L Chloride 103 (98-107) mmol/L Carbon Dioxide 27 (21-32) mmol/L Anion Gap 4 (3-11) BUN 26 H (6-23) mg/dl Creatinine 1.47 H (0.6-1.4) mg/dl Est Cr Clr Drug Dosing 43.4 ml/min Est GFR ( Amer) 49.4 ml/min Est GFR (Non-Af Amer) 42.6 ml/min BUN/Creatinine Ratio 17.7 (10-20) Glucose 240 H (70-99(Fasting)) mg/dl POC Glucose (70-99) mg/dl Calcium 8.2 L (8.6-10.3) mg/dl Total Bilirubin 0.7 (0.2-1.0) mg/dl AST 19 (13-39) U/L ALT 19 (7-52) U/L Alkaline Phosphatase 127 H (34-104) U/L Total Creatine Kinase 30 (30-223) U/L Troponin I High Sens 31.0 H 28.8 H (0-20) pg/ml Total Protein 6.5 (6.0-8.3) gm/dl Albumin 3.4 (3.4-5.0) gm/dl Globulin 3.1 (2.5-4.0) gm/dl Albumin/Globulin Ratio 1.1 (0.9-2) Urine Color Yellow Urine Appearance Clear (Clear) Urine pH 6.0 (4.5-7.5) Ur Specific [place] 1.014 (1.000-1.030) Urine Protein 4+ H (Negative) Urine Glucose (UA) 1+ H (Negative) Urine Ketones Negative (Negative) Urine Blood 1+ H (Negative) Urine Nitrite Negative (Negative) Urine Bilirubin Negative (Negative) Urine Urobilinogen Negative (Negative) Ur Leukocyte Esterase Negative (Negative) Urine WBC (Auto) 0-5 (0-5) /hpf Urine RBC (Auto) 3-5 H (0-2) /hpf U Hyaline Cast (Auto) 3-5 H (0-2) /lpf U Epithel Cells (Auto) 0-2 (0-2) /hpf Urine Bacteria (Auto) None Seen (None Seen) 01/16/24 Range/Units 21:25 WBC (4.8-10.8) K/ul RBC (4.70-6.10) M/uL Hgb (14.0-18.0) g/dl Hct (42.0-52.0) % MCV (80.0-100.0) fL MCH (25.0-34.0) pg MCHC (32.0-36.0) g/dL RDW Std Deviation (36.4-46.3) fL RDW Coeff of Nilesh (11.5-14.5) % Plt Count (130-400) K/uL MPV (9.4-12.4) fL Immature Gran % (Auto) % Neut % (Auto) % Lymph % (Auto) % [place] % (Auto) % Eos % (Auto) % Baso % (Auto) % Neut # (Auto) (1.40-6.50) K/uL Lymph # (Auto) (1.20-3.40) K/uL [place] # (Auto) (0.11-0.59) K/uL Eos # (Auto) (0.00-0.50) K/uL Baso # (Auto) (0.00-0.20) K/uL Immature Gran # (Auto) (0.01-0.20) K/uL PT (9.0-12.0) Seconds INR (0.9-1.1) Sodium (136-145) mmol/L Potassium (3.5-5.1) mmol/L Chloride (98-107) mmol/L Carbon Dioxide (21-32) mmol/L Anion Gap (3-11) BUN (6-23) mg/dl Creatinine (0.6-1.4) mg/dl Est Cr Clr Drug Dosing ml/min Est GFR ( Amer) ml/min Est GFR (Non-Af Amer) ml/min BUN/Creatinine Ratio (10-20) Glucose (70-99(Fasting)) mg/dl POC Glucose 245 H (70-99) mg/dl Calcium (8.6-10.3) mg/dl Total Bilirubin (0.2-1.0) mg/dl AST (13-39) U/L ALT (7-52) U/L Alkaline Phosphatase (34-104) U/L Total Creatine Kinase (30-223) U/L Troponin I High Sens (0-20) pg/ml Total Protein (6.0-8.3) gm/dl Albumin (3.4-5.0) gm/dl Globulin (2.5-4.0) gm/dl Albumin/Globulin Ratio (0.9-2) Urine Color Urine Appearance (Clear) Urine pH (4.5-7.5) Ur Specific [place] (1.000-1.030) Urine Protein (Negative) Urine Glucose (UA) (Negative) Urine Ketones (Negative) Urine Blood (Negative) Urine Nitrite (Negative) Urine Bilirubin (Negative) Urine Urobilinogen (Negative) Ur Leukocyte Esterase (Negative) Urine WBC (Auto) (0-5) /hpf Urine RBC (Auto) (0-2) /hpf U Hyaline Cast (Auto) (0-2) /lpf U Epithel Cells (Auto) (0-2) /hpf Urine Bacteria (Auto) (None Seen) Administered Medications Heparin Sodium/Dextrose (Heparin Sodium/Dextrose) 25,000 units in 500 mls @ 20 mls/hr IV .[facility]; Protocol Stop: 02/15/24 21:44 Last Admin: 01/16/24 22:19 Dose: 1,000 units/hr, 20 mls/hr Documented By: GERARD Co-signed By: Discontinued Medications Fentanyl Citrate (Fentanyl Citrate Pf 100 Mcg/2 Ml Vial) 50 mcg IV NOW STA Stop: 01/16/24 18:35 Last Admin: 01/16/24 18:44 Dose: 50 mcg Documented By: AMARA Fentanyl Citrate (Fentanyl Citrate Pf 100 Mcg/2 Ml Vial) 50 mcg IV NOW STA Stop: 01/16/24 19:51 Last Admin: 01/16/24 19:56 Dose: 50 mcg Documented By: GERARD Insulin Aspart (Insulin Aspart Per Unit Charge) 0 units SC ONE STA Stop: 01/16/24 21:31 Last Admin: 01/16/24 21:47 Dose: 2 units Documented By: GERARD Co-signed By: RJ Insulin Glargine (Lantus Per Unit Charge) 8 units SQ ONE STA Stop: 01/16/24 21:31 Last Admin: 01/16/24 21:47 Dose: 8 units Documented By: GERARD Co-signed By: RJ Imaging Data Radiologist's Impression: Chest X-Ray 01/16/24 18:34 SUPINE PORTABLE AP CHEST RADIOGRAPH CLINICAL HISTORY: fall COMPARISON STUDY: Chest CT March 24, 2023. Chest radiograph March 31, 2023. FINDINGS: No pneumothorax or pleural effusion is identified on supine exam. There is no evidence for pulmonary edema. There is mild cardiomegaly. No consolidation is identified to suggest pneumonia. IMPRESSION: No acute cardiopulmonary findings. ACT 112: Negative or not required by law. Electronically signed by: Zaid Jhaveri M.D. 01/16/2024 7:[address] 01/16/24 18:34 CT OF THE HEAD WITHOUT CONTRAST CLINICAL HISTORY: fall on pradaxa COMPARISON STUDY: Head CT April 24, 2022 CT DOSE: 813.12 mGy.cm TECHNIQUE: Helical axial images of the head were obtained without IV contrast. Automated exposure control was utilized for the study. A dose lowering technique was utilized adhering to the principles of ALARA. FINDINGS: No acute intracranial hemorrhage, midline shift or mass effect is present. The ventricular system is unremarkable. The basal cisterns are patent. No extra-axial collections are present. There are no findings to suggest acute dural sinus thrombosis or acute territorial infarct. No calvarial fractures are identified. White matter hypodensities are unchanged and favor small vessel disease. There is a 1 cm hypodense focus within the left aspect of the don on image 11. IMPRESSION: 1. No acute intracranial hemorrhage. 2. 1 cm left pontine hypodense focus. Artifact is favored however an age indeterminate infarct could appear similar. 3. No calvarial fractures. ACT 112: Negative or not required by law. Electronically signed by: Zaid Jhaveri M.D. 01/16/2024 7:34 PM Hip/Pelvis X-Ray 01/16/24 18:34 XR hip RT 2V w pelvis CLINICAL HISTORY: fall, pain COMPARISON: CT of the abdomen and pelvis April 24, 2022. FINDINGS: There is an acute minimally displaced intertrochanteric fracture of the right femur. No additional acute fractures are identified. Sacroiliac joints and symphysis pubis are intact. There are no osseous lesions. IMPRESSION: Acute minimally displaced intertrochanteric fracture of the right femur. ACT 112: Negative or not required by law. Electronically signed by: Zaid Jhaveri M.D. 01/16/2024 7:04 PM Discharge Plan Visit Data Chief Complaint: Fall ED Provider: Simon Galindo Discharge Problem: Closed fracture of right hip, Fall, A-fib, Anticoagulant long-term use Patient Disposition: Being Evaluated by Hospitalist Forms Stand Alone Forms: My [facility] Prescriptions Prescriptions: No Action atorvastatin 20 mg tablet 20 mg PO QPM Qty: 90 3RF dabigatran etexilate [Pradaxa] 150 mg capsule 150 mg PO BID 15 Days Qty: 30 2RF dabigatran etexilate 150 mg capsule 150 mg PO BID Qty: 60 3RF Hold Instructions: Backorder (DME) Blood pressure cuff See Rx Instructions .Route .MEDSUPPLY Qty: 1 0RF Rx Instructions: As directed multivitamin [Daily Multi-Vitamin] Tablet 1 tab PO DAILY metoprolol succinate 50 mg tablet extended release 24 hr 50 mg PO DAILY Qty: 90 3RF amlodipine 5 mg tablet 5 mg PO BID Qty: 60 2RF furosemide 20 mg tablet 20 mg PO DAILY Qty: 30 2RF Hold Instructions: Resume on 04/16/23. can resume at discretion of PCP aspirin 81 mg tablet,delayed release (DR/EC) 81 mg PO DAILY insulin lispro [Humalog KwikPen Insulin] 100 unit/mL insulin pen 1 sliding scale dose subcut TID Rx Instructions: 150-200=2U 201-250=4U 251-300=6U 301-350=8U 351-399=10U 400+ call olmesartan 5 mg tablet 5 mg PO DAILY sertraline 50 mg tablet 100 mg PO DAILY solifenacin 5 mg tablet 5 mg PO DAILY tolterodine 2 mg tablet 2 mg PO DAILY triamcinolone acetonide 0.1 % cream 1 applic topical DAILY PRN (Reason: Skin Irritation) omeprazole 20 mg tablet,delayed release (DR/EC) 20 mg PO PM simethicone 125 mg capsule 125 mg PO DAILY PRN (Reason: GAS DISCOMFORT) ascorbic acid (vitamin C) 1,000 mg tablet 1 g PO DAILY cholecalciferol (vitamin D3) 125 mcg (5,000 unit) capsule 125 mcg PO DAILY loratadine [Claritin] 10 mg Tablet 10 mg PO DAILY PRN (Reason: allergies) insulin glargine [Lantus Solostar U-100 Insulin] 100 unit/mL (3 mL) insulin pen 17 unit SUBCUT QPM calcium carbonate [Calcium 600] 600 mg calcium (1,500 mg) Tablet 600 mg PO DAILY albuterol sulfate 90 mcg/actuation HFA aerosol inhaler 1 - 2 inh inhalation .Q4-6HR PRN (Reason: Shortness Of Breath) Rx Instructions: 1-2 puffs inhalation Q4- 6 hours PRN shortness of breath Referrals Referrals: Rodríguez Rodriges DO [Primary Care Provider] - Discharge Problem: Closed fracture of right hip Qualifiers: Encounter type: initial encounter Qualified Code(s): S72.001A - Fracture of unspecified part of neck of right femur, initial encounter for closed fracture Fall Qualifiers: Encounter type: initial encounter Qualified Code(s): W19.XXXA - Unspecified fall, initial encounter A-fib Qualifiers: Atrial fibrillation type: unspecified chronic Qualified Code(s): I48.20 - Chronic atrial fibrillation, unspecified
--- NOTE | 2024-01-16 19:36 | CT Scan Report ---
CT OF THE HEAD WITHOUT CONTRAST CLINICAL HISTORY: fall on pradaxa COMPARISON STUDY: Head CT April 24, 2022 CT DOSE: 813.12 mGy.cm TECHNIQUE: Helical axial images of the head were obtained without IV contrast. Automated exposure con trol was utilized for the study. A dose lowering technique was utilized adhering to the principles o f ALARA. FINDINGS: No acute intracranial hemorrhage, midline shift or mass effect is present. The ventricular system is unremarkable. The basal cisterns are patent. No extra-axial collections are present. There are no findings to suggest acute dural sinus thrombosis or acute territorial infarct. No calvarial fr actures are identified. White matter hypodensities are unchanged and favor small vessel disease. Ther e is a 1 cm hypodense focus within the left aspect of the don on image 11. IMPRESSION: 1. No acute intracranial hemorrhage. 2. 1 cm left pontine hypodense focus. Artifact is favored however an age indeterminate infarct could appear similar. 3. No calvarial fractures. ACT 112: Negative or not required by law. Electronically signed by: Zaid Jhaveri M.D. 01/16/2024 7:34 PM
--- NOTE | 2024-01-16 20:52 | History & Physical Report ---
Date of Service January 16, 2024 Assessment & Plan (1) Closed right hip fracture: Plan: Admit to med/tele on pulse oximetry Currently stable and was placed on 2 L nasal cannula in the ED after receiving 2 doses of fentanyl for pain Presented to ED after mechanical fall at home trying to get out of their sedan, they confirm he did not fall out of a truck Patient noted to have acute mildly displaced right hip fracture but is otherwise without acute trauma Pain control with scheduled Tylenol, as needed Dilaudid for severe pain, lidocaine patch Orthopedics has been consulted We will hold his Pradaxa at this time and convert him to heparin drip which can be stopped prior to surgery Fall precautions aspiration precautions, PT/OT consults Heparin drip for DVT prophylaxis Heart healthy/DM type II diet AM CBC, CMP, mag, PT/INR (2) History of CVA (cerebrovascular accident): Plan: Patient sustained previous CVA approximately 1 year ago, has been on aspirin since Baseline right-sided weakness since his stroke Patient and confirm no new neurologic defects at this time Continue aspirin for now (3) Fall: Plan: See close right hip fracture plan (4) Atrial fibrillation: Plan: Currently in rate controlled A-fib Will need to hold Pradaxa in preparation for eventual surgery Will start low-dose weight-based heparin drip tonight with no bolus protocol ongoing anticoagulation Continue metoprolol (5) Wound of foot: Plan: Patient with chronic wounds on the right second and left third distal toes, is being followed by podiatry outpatient Right second toe ulcer 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, will obtain x-ray to monitor for bone involvement Wound care nurse consult been placed (6) Type II diabetes mellitus with complication: Plan: Monitor BSG ACHS, goal is [id number] Normally takes 17 units Lantus every afternoon, will convert to 8 units twice daily for now Start CF of 50 and CR 15 ACHS Adjust regimen as needed (7) BPH with obstruction/lower urinary tract symptoms: Plan: No signs of infection on UA Continue to monitor signs of obstruction (8) HTN (hypertension): Plan: Currently stable Continue amlodipine, olmesartan Will hold home furosemide for now to prevent dehydration/ANA Plan The patient was discussed with Dr. Valles at the time of admission History of Present Illness Chief Complaint: fall, hip pain Primary Care Provider: DO Barney Wood is an 88-year-old male with a past medical history significant for CKD 3, DM 2, GERD, BPH, MGUS, CVA, atrial fibrillation (on Pradaxa) who presented to the [facility] ED on 01/16/2024 via EMS after sustaining a fall and subsequent right hip pain. He was noted to be hypertensive on arrival at 194/127, tachycardic at 91, but otherwise stable. Labs were significant for a glucose of 240, calcium 8.2, initial high-sensitivity troponin of 31. Chest x- ray was read as negative for acute findings. CT of the head and brain without contrast was read as no acute intracranial hemorrhage. 1 cm left pontine hypodense focus. Artifact is favored however an age-indeterminate infarct appears similar. X-ray of the right hip and pelvis was read as acute minimally displaced intertrochanteric fracture of the right femur. Prior to admission the patient was given 2 doses of 50 mcg IV fentanyl. Patient was lying in bed in no acute distress at time of exam with his bedside, history was obtained from both. Since having his stroke last year the patient has been having ongoing ambulatory dysfunction due to chronic right sided weakness compared to left. His says that they had just returned from a trip from [place], she had parked and was trying to go around the car to assist the patient getting out. While trying to get out of there sedan he tripped and fell. He landed on his right side, did not hit his head or lose consciousness. His states that his last dose of Pradaxa was this morning. At this time his only pain is right hip pain. He denies head, neck, back, chest, abdominal, and left lower extremity pain. 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 We confirmed that he is a full code and his is his power of district attorney. Please refer to Dr. Valles's attestation for any changes to the treatment plan Allergies Allergy/AdvReac Type Severity Reaction Status Date / Time diazepam Allergy Intermediate rash Verified 01/16/24 19:59 baclofen Allergy Unknown CAN'T Verified 01/16/24 19:59 REMEMBER sulfamethoxazole AdvReac Severe SEE COMMENT Verified 01/16/24 19:59 [From Bactrim] trimethoprim [From Bactrim] AdvReac Severe SEE COMMENT Verified 01/16/24 19:59 morphine AdvReac Intermediate hallucinati Verified 01/16/24 19:59 ons prednisone AdvReac Intermediate INCREASED Verified 01/16/24 21:29 BP, INCREASED BS Home Medications Medication Instructions Recorded Confirmed Type multivitamin (Daily Multi-Vitamin 1 tab PO DAILY 12/28/19 01/16/24 History tablet) metoprolol succinate 50 mg 50 mg PO DAILY #90 tabs 01/10/21 01/16/24 Rx tablet,extended release 24 hr atorvastatin 20 mg tablet 20 mg PO QPM #90 tabs 04/28/21 01/16/24 Rx loratadine 10 mg tablet (Claritin) 10 mg PO DAILY PRN allergies 04/24/22 01/16/24 History furosemide 20 mg tablet 20 mg PO DAILY #30 tabs 03/25/23 01/16/24 Rx amlodipine 5 mg tablet 5 mg PO BID #60 tabs 04/07/23 01/16/24 Rx aspirin 81 mg tablet,delayed 81 mg PO DAILY 12/21/23 01/16/24 History release insulin glargine 100 unit/mL (3 17 unit subcut QPM 12/21/23 01/16/24 History mL) subcutaneous pen (Lantus Solostar U-100 Insulin) insulin lispro 100 unit/mL 1 sliding scale dose subcut TID 12/21/23 01/16/24 History subcutaneous pen (Humalog KwikPen (U-100) Insulin) olmesartan 5 mg tablet 5 mg PO DAILY 12/21/23 01/16/24 History Pradaxa 150 mg capsule (dabigatran 150 mg PO BID 15 days #30 caps 12/23/23 01/16/24 Rx etexilate) ascorbic acid (vitamin C) 1,000 mg 1 g PO DAILY 12/23/23 01/16/24 History tablet cholecalciferol (vitamin D3) 125 125 mcg PO DAILY 12/23/23 01/16/24 History mcg (5,000 unit) capsule dabigatran etexilate 150 mg capsule 150 mg PO BID #60 caps 12/23/23 01/16/24 Rx omeprazole 20 mg tablet,delayed 20 mg PO PM 12/23/23 01/16/24 History release sertraline 50 mg tablet 100 mg PO DAILY 12/23/23 01/16/24 History simethicone 125 mg capsule 125 mg PO DAILY PRN GAS DISCOMFORT 12/23/23 01/16/24 History solifenacin 5 mg tablet 5 mg PO DAILY 12/23/23 01/16/24 History tolterodine 2 mg tablet 2 mg PO DAILY 12/23/23 01/16/24 History triamcinolone acetonide 0.1 % 1 applic topical DAILY PRN Skin 12/23/23 01/16/24 History topical cream Irritation Blood pressure cuff #1 ea 01/04/24 Rx albuterol sulfate 90 mcg/actuation 1 - 2 inh inhalation .Q4-6HR PRN 01/16/24 01/16/24 History aerosol inhaler Shortness Of Breath calcium carbonate (Calcium 600) 600 mg PO DAILY 01/16/24 01/16/24 History Past Med/Surg History Problem List (Updated 01/16/24 @ 22:33 by Simon Galindo M.D.) Anticoagulant long-term use (Acute) A-fib (Acute) Fall (Acute) Closed fracture of right hip (Acute) Closed right hip fracture Wound of foot Atrial fibrillation Fall History of CVA (cerebrovascular accident) Elevated prostate specific antigen (PSA) ANA (acute kidney injury) Atrial flutter by electrocardiogram Hyperkalemia (Acute) Abnormal EKG UTI (urinary tract infection) Pleural effusion Chest pain at rest RODRIGUEZ (dyspnea on exertion) Influenza Pulmonary nodule, left Urge incontinence of urine DVT prophylaxis Abnormal CT of the abdomen Encephalopathy Adverse reaction to drug (Acute) Altered mental status (Acute) Toxic encephalopathy Fungal toenail infection Vitamin D deficiency (Chronic) Type II diabetes mellitus with complication (Chronic) Stage III chronic kidney disease (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) Hiatal hernia (Chronic) GERD without esophagitis (Chronic) Erectile dysfunction (Chronic) BPH with obstruction/lower urinary tract symptoms (Chronic) HTN (hypertension) (Chronic) Medical History COVID-19 Osteopenia of spine Low back pain Fatty liver Cardiomegaly Calcification of aorta Anemia Surgical History History of cataract surgery History of appendectomy History of lumpectomy History of incisional hernia repair History of inguinal hernia repair History of laminectomy History of partial colectomy Family History Sister Colorectal cancer Denies family history of Ovarian cancer Prostate cancer Myocardial infarction Breast cancer Social History Smoking Status: Former smoker Tobacco Type: Cigarettes Age Started Using Tobacco: 19; Age Quit Using Tobacco: 19; Second Hand Exposure: No; Do You Dip or Chew Tobacco: No; Hx Alcohol Use: No Hx Substance Use: No Preferred Language: Togolese Communication Ability: Effective Visual Impairment: No Limitations Hearing Ability: Use of Hearing Aid [employer] Required: No Beliefs That Will Affect Care: None marital status: Current Living Situation: Spouse Current Living Situation Comment: [facility] with current occupational status: retired current occupation: Lives 6 months in [place]. Former [place]. [place] [employer] How many Children do You have: 5 Feels Safe at Home: Yes Childhood Exposure to Second-Hand Smoke: No Diet: diabetic caffeine: Yes during the past year weight has: decreased > 10 lbs Dental Care, Regularly: Yes Physical Activity Frequency: Does not Exercise Seatbelt Use: sometimes Sunscreen Use: No Assistive Devices: Cane, Scooter/Electric Scooter and Walker Physical Exam 2 Physical Exam: Physical Exam: General: In no acute distress, stated age, chronically ill appearing but non- toxic HEENT: Normocephalic, atraumatic, no scleral icterus, pupils around round, symmetrical, and reactive to light, dry mucus membranes, trachea midline, no thyromegaly Chest/Pulm: No respiratory distress, symmetrical chest expansion, clear breath sounds throughout Cardiac: irregular rate and rhythm, no murmurs noted Abdomen: Negative for ascites and bruising, normoactive bowel sounds, soft, non-tender to palpation throughout Musculoskeletal: Patient with shortening and external rotation of the RLE, no bruising noted on inspection of the BL hips/pelvis, no other acute trauma on exam Extremities: Radial, dorsalis pedis, and posterior tibial pulses are intact and symmetrical, no edema noted in the BL LE's Skin: See attached pictures of chronic to infections Neuro: Alert and oriented to person, place, month, no focal defects, no tremors noted Psych: No acute distress, calm and cooperative during the exam Results & Data Results & Data Vital Signs (Past 12 Hours) Vital Signs Temp Pulse Pulse Resp BP BP Pulse Ox 01/16/24 19:59 91 H 18 193/108 H 95 01/16/24 18:38 78 01/16/24 18:30 36.7 C 83 18 194/127 H 92 01/16/24 18:13 94 01/16/24 18:13 36.7 C 85 16 194/127 H 94 O2 Del Method O2 Flow Rate 01/16/24 19:59 Nasal Cannula 2 01/16/24 18:38 01/16/24 18:30 Room Air 01/16/24 18:13 Room Air 01/16/24 18:13 Room Air Laboratory Results Abnormal lab results 01/16/24 01/16/24 01/16/24 Range/Units 18:42 20:22 21:10 RBC 4.69 L (4.70-6.10) M/uL Hct 39.9 L (42.0-52.0) % Neut # (Auto) 8.34 H (1.40-6.50) K/uL Lymph # (Auto) 0.91 L (1.20-3.40) K/uL Beaver # (Auto) 0.96 H (0.11-0.59) K/uL PT 12.4 H (9.0-12.0) Seconds INR 1.2 H (0.9-1.1) Sodium 134 L (136-145) mmol/L BUN 26 H (6-23) mg/dl Creatinine 1.47 H (0.6-1.4) mg/dl Glucose 240 H (70-99(Fasting)) mg/dl POC Glucose (70-99) mg/dl Calcium 8.2 L (8.6-10.3) mg/dl Alkaline Phosphatase 127 H (34-104) U/L Troponin I High Sens 31.0 H 28.8 H (0-20) pg/ml Urine Protein 4+ H (Negative) Urine Glucose (UA) 1+ H (Negative) Urine Blood 1+ H (Negative) Urine RBC (Auto) 3-5 H (0-2) /hpf U Hyaline Cast (Auto) 3-5 H (0-2) /lpf 01/16/24 Range/Units 21:25 RBC (4.70-6.10) M/uL Hct (42.0-52.0) % Neut # (Auto) (1.40-6.50) K/uL Lymph # (Auto) (1.20-3.40) K/uL Beaver # (Auto) (0.11-0.59) K/uL PT (9.0-12.0) Seconds INR (0.9-1.1) Sodium (136-145) mmol/L BUN (6-23) mg/dl Creatinine (0.6-1.4) mg/dl Glucose (70-99(Fasting)) mg/dl POC Glucose 245 H (70-99) mg/dl Calcium (8.6-10.3) mg/dl Alkaline Phosphatase (34-104) U/L Troponin I High Sens (0-20) pg/ml Urine Protein (Negative) Urine Glucose (UA) (Negative) Urine Blood (Negative) Urine RBC (Auto) (0-2) /hpf U Hyaline Cast (Auto) (0-2) /lpf Diagnostic Findings Chest X-Ray 01/16/24 18:34 SUPINE PORTABLE AP CHEST RADIOGRAPH CLINICAL HISTORY: fall COMPARISON STUDY: Chest CT March 24, 2023. Chest radiograph March 31, 2023. FINDINGS: No pneumothorax or pleural effusion is identified on supine exam. There is no evidence for pulmonary edema. There is mild cardiomegaly. No consolidation is identified to suggest pneumonia. IMPRESSION: No acute cardiopulmonary findings. ACT 112: Negative or not required by law. Electronically signed by: Zaid Jhaveri M.D. 01/16/2024 7:[address] 01/16/24 18:34 CT OF THE HEAD WITHOUT CONTRAST CLINICAL HISTORY: fall on pradaxa COMPARISON STUDY: Head CT April 24, 2022 CT DOSE: 813.12 mGy.cm TECHNIQUE: Helical axial images of the head were obtained without IV contrast. Automated exposure control was utilized for the study. A dose lowering technique was utilized adhering to the principles of ALARA. FINDINGS: No acute intracranial hemorrhage, midline shift or mass effect is present. The ventricular system is unremarkable. The basal cisterns are patent. No extra-axial collections are present. There are no findings to suggest acute dural sinus thrombosis or acute territorial infarct. No calvarial fractures are identified. White matter hypodensities are unchanged and favor small vessel disease. There is a 1 cm hypodense focus within the left aspect of the don on image 11. IMPRESSION: 1. No acute intracranial hemorrhage. 2. 1 cm left pontine hypodense focus. Artifact is favored however an age indeterminate infarct could appear similar. 3. No calvarial fractures. ACT 112: Negative or not required by law. Electronically signed by: Zaid Jhaveri M.D. 01/16/2024 7:34 PM Hip/Pelvis X-Ray 01/16/24 18:34 XR hip RT 2V w pelvis CLINICAL HISTORY: fall, pain COMPARISON: CT of the abdomen and pelvis April 24, 2022. FINDINGS: There is an acute minimally displaced intertrochanteric fracture of the right femur. No additional acute fractures are identified. Sacroiliac joints and symphysis pubis are intact. There are no osseous lesions. IMPRESSION: Acute minimally displaced intertrochanteric fracture of the right femur. ACT 112: Negative or not required by law. Electronically signed by: Zaid Jhaveri M.D. 01/16/2024 7:04 PM ECG Additional Comments: Atrial fibrillation Left axis deviation Inferior infarct (cited on or before 31-MAR-2023) Abnormal ECG When compared with ECG of 03-APR-2023 11:59, Atrial fibrillation has replaced Atrial flutter Code Status & VTE Plan Code Status Full code VTE Prophylaxis Plan VTE Prophylaxis will be ordered: Yes Supervising Physician Co-Signing Physician Notes Attending addendum: I have physically seen this patient, have supervised the DINESH's activities, and agree with the H&P unless as otherwise noted. Assessment and Plan: Closed right hip fracture- Admit to med telemetry Status post mechanical fall at home Pain control as as outlined with Tylenol, Dilaudid and lidocaine patch Hold Pradaxa Convert to heparin drip, until surgery Atrial fibrillation/hypertension- Hold Pradaxa and aspirin Low-dose weight-based heparin drip as noted Continue metoprolol with hold parameters Hold amlodipine Diabetes mellitus- Reduction and glargine as noted 2 units subcu twice daily N.p.o. after midnight PG Care Time/CCT Total # of Minutes Spent Total Time Spent with Patient: Total time spent is greater than 50% in coordination of care (as documented) at patient's floor/unit and/or counseling patient: Coding [place] [address] INT INP/OBS CARE 3/75MIN Patient Type Established Medical Decision Making High Complexity Diagnoses Closed right hip fracture S72.001A History of CVA (cerebrovascular accident) Z86.73 Fall W19.XXXA Atrial fibrillation I48.91 Wound of foot S91.309A Type II diabetes mellitus with complication E11.8 BPH with obstruction/lower urinary tract symptoms N40.1; N13.8 Essential hypertension I10 Hypertension type: essential hypertension (8) HTN (hypertension) Hypertension type: essential hypertension Qualified Code(s): I10 - Essential (primary) hypertension
[2024-01-16] MEDS ORDERED: CARBOHYDRATES FOR HYPOGLYCEMIA PO PRN (21:00)
[2024-01-16] MEDS ORDERED: DEXTROSE 50% 50 ML SYRINGE IV PRN (21:00)
[2024-01-16] MEDS ORDERED: GLUCOSE 40% GEL 15 GM TUBE PO PRN (21:00)
[2024-01-16] MEDS ORDERED: GLUCAGON FOR INJ 1 MG VIAL SQ PRN (21:00)
[2024-01-16] MEDS ORDERED: GLUCOSE 10 TAB/TUBE PO PRN (21:00)
[2024-01-16 21:24] LABS: Appearance Urine Clear (Clear); Bacteria Urine Automated None Seen (None Seen); Bilirubin Urine Negative (Negative); Blood Urine 1+ (Negative); Color Urine Yellow; Epithelial Cell Urine Auto 0-2 /hpf (0-2); Glucose Urine UA 1+ (Negative); Ketones Urine Negative (Negative); Leukocyte Esterase Urine Negative (Negative); Nitrite Urine Negative (Negative); Protein Urine 4+ (Negative); Specific Gravity Urine 1.014 (1.000-1.030); Urobilinogen Urine Negative (Negative); WBC Urine Automated 0-5 /hpf (0-5)
[2024-01-16] MEDS ORDERED: Heparin IV Adult Wt-Based Low-Dose *NO* INITIAL Bolus Protocol IV STA (21:28)
[2024-01-16] MEDS ORDERED: HYDROmorphone INJ 0.5 MG/0.5 ML SYR IV PRN (21:29)
[2024-01-16] MEDS ORDERED: NALOXONE HCL 0.4 MG/1 ML VIAL/CARP IV PRN (21:29)
[2024-01-16] MEDS ORDERED: bisacodyL 10 MG SUPP PR PRN (21:29)
[2024-01-16] MEDS ORDERED: MAGNESIUM HYDROXIDE SUSP 30 ML UDC PO PRN (21:29)
[2024-01-16] MEDS: LANTUS PER UNIT CHARGE SQ STA (21:47)
[2024-01-16] MEDS: INSULIN ASPART PER UNIT CHARGE SC STA (21:47)
[2024-01-16] MEDS: HEPARIN SODIUM/DEXTROSE 25,000 UNITS/500 ML BAG IV SCH (22:19)
[2024-01-16] MEDS: HYDROmorphone INJ 0.5 MG/0.5 ML SYR IV PRN (23:50)
[2024-01-17] MEDS ORDERED: ALBUTEROL HFA 8 GM INHALER INH PRN (00:52)
[2024-01-17] MEDS ORDERED: SIMETHICONE 80 MG CHEW PO PRN (01:02)
[2024-01-17] MEDS: amLODIPine BESYLATE 5 MG TAB PO SCH (01:35)
[2024-01-17] MEDS: ATORVASTATIN 20 MG TAB PO SCH (01:35)
[2024-01-17] MEDS: PANTOprazole 40 MG TAB PO SCH (01:35)
[2024-01-17 05:30] LABS: Basophils # (auto) 0.03 K/uL (0.00-0.20); Basophils % (auto) 0.2 %; Eosinophils % (auto) 1.5 %; Hematocrit (blood only) 36.8 % (42.0-52.0); Hemoglobin 12.8 g/dl (14.0-18.0); Immature Granulocytes # (auto) 0.11 K/uL (0.01-0.20); Immature Granulocytes % (auto) 0.8 %; Mean Corpuscular Hemoglobin 29.8 pg (25.0-34.0); Mean Corpuscular Hgb Conc 34.8 g/dL (32.0-36.0); Mean Corpuscular Volume 85.6 fL (80.0-100.0); Mean Platelet Volume 10.2 fL (9.4-12.4); Monocytes # (auto) 1.13 K/uL (0.11-0.59); Monocytes % (auto) 8.4 %; Neutrophils # (auto) 11.13 K/uL (1.40-6.50); Neutrophils % (auto) 83.1 %; Platelet Count 193 K/uL (130-400); RDW Coefficient of Variation 13.3 % (11.5-14.5); RDW Standard Deviation 41.3 fL (36.4-46.3)
[2024-01-17 05:36] LABS: ANTI-Xa, UFH(UnfractionatedHep 0.29 IU/ml (0.3-0.7); Albumin Globulin Ratio 1.1 (0.9-2); BUN Creatinine Ratio 17.2 (10-20); Bilirubin,Total 0.8 mg/dl (0.2-1.0); Calcium 7.6 mg/dl (8.6-10.3); Creatinine Clr Calc Pharmacy 41.9 ml/min; Est GFR (African American) 47.8 ml/min; Est GFR (Non-African American) 41.2 ml/min; Globulin 2.8 gm/dl (2.5-4.0); INR 1.2 (0.9-1.1); Magnesium 1.5 mg/dl (1.7-2.4); Potassium 5.1 mmol/L (3.5-5.1); Prothrombin Time 12.8 Seconds (9.0-12.0); Total Protein 5.8 gm/dl (6.0-8.3)
[2024-01-17] MEDS ORDERED: Nursing to Pharmacy Communication SCH (06:00)
[2024-01-17] MEDS: INSULIN ASPART PER UNIT CHARGE SC SCH ×2 (06:11→18:17)
--- NOTE | 2024-01-17 06:50 | XRay Report ---
XR foot RT 2V CLINICAL HISTORY: chronic right 2nd toe infection COMPARISON: None FINDINGS: No acute fractures are identified within the right foot. Tarsometatarsal joints are intact . There is right second toe soft tissue swelling. There is subtle lucency and cortical irregularity o f the distal tuft of the distal phalanx of the right second toe. There are posterior and plantar calc aneal spurs. Moderate vascular calcification is present. IMPRESSION: 1. No acute fractures within the right foot. 2. Right second toe soft tissue swelling. Equivocal erosion of the distal tuft of the distal phalanx of the right second toe. If suspicion for acute osteomyelitis, MRI could be obtained. ACT 112: Negative or not required by law. Electronically signed by: Zaid Jhaveri M.D. 01/17/2024 6:48 AM
[2024-01-17] MEDS ORDERED: INSULIN ASPART PER UNIT CHARGE SC SCH (07:30)
[2024-01-17 07:32] LABS: Estimated Average Glucose 169 mg/dl; Hemoglobin A1C 7.5 % (4.5-5.6)
[2024-01-17] MEDS: ASPIRIN 81 MG ECTAB PO SCH (08:05)
[2024-01-17] MEDS: METOPROLOL SUCC 50MG EXT REL TAB PO SCH (08:05)
[2024-01-17] MEDS: SERTRALINE HCL 100 MG TABLET PO SCH (08:05)
[2024-01-17] MEDS: LOSARTAN POTASSIUM 25 MG TAB PO SCH (08:05)
[2024-01-17] MEDS: OXYBUTYNIN CHLORIDE XL 5 MG TABCR PO SCH (08:05)
[2024-01-17] MEDS: LANTUS PER UNIT CHARGE SQ SCH (08:09)
[2024-01-17] MEDS ORDERED: TOLTERODINE 2 MG PO SCH (09:00)
--- NOTE | 2024-01-17 09:16 | Hospitalist Progress Note ---
Date of Service January 17, 2024 Assessment & Plan (1) A-fib: (2) Anticoagulant long-term use: (3) Closed fracture of right hip: (4) Fall: (5) History of CVA (cerebrovascular accident): (6) Closed right hip fracture: (7) Atrial fibrillation: (8) Wound of foot: (9) Type II diabetes mellitus with complication: (10) BPH with obstruction/lower urinary tract symptoms: (11) HTN (hypertension): Krystina Corley is an 88-year-old male with a past medical history significant for CKD 3, DM 2, GERD, BPH, MGUS, CVA, atrial fibrillation (on Pradaxa) who was admitted due to mechanical fall that resulted in right hip fracture. Closed Right-Hip fracture 2ry to fall Decreased bone density? - Currently stable and pain well controlled with current regimen Hip XR with acute minimally displaced intertrochanteric fracture of the right femur. - Head CT w/o sign of bleed or acute changes Ortho consulted and surgery to be done in 1-2 days. Patient NPO at midnight. Will continue Heparin until surgery date/time is known Fall precautions aspiration precautions, PT/OT consults - Given hip fracture after fall from small height, consider possible that there may have been an underlying decrease in bone density. Would encourage outpatient follow up for this and possibly consider bisphosphonate if appropriate 1-2 months after healing of current fracture. Right 2nd toe wound Follows podiatry as outpatient Wound care nurse consult been placed A-fib Currently in rate controlled A-fib Pradaxa on hold. Heparin ordered. Continue metoprolol CKD-3 - Baseline Creatinine 1.7. Am labs showing Cr of 1.5 - Electrolytes in reference range - Follows with Dr. Malave - Continue to monitor am labs Hx CVA Patient sustained previous CVA approximately 1 year ago, has been on aspirin since Baseline right-sided weakness and problems with swallowing since his stroke Continue aspirin for now - Aspiration precautions DM-2 Monitor BSG ACHS, goal is [id number] Hgb A1c (01/17/24) was 7.5% - Will order insulin and SSI - Consider glycemic regimen adjustment after discharge HTN Currently stable Continue amlodipine, olmesartan Will hold home furosemide for now given adequate BP and to prevent dehydration/ANA BPH No signs of infection on UA Continue to monitor signs of obstruction FEN: no fluids VTE ppx: Heparin Diet: HH, DM-2, Low Sodium Dispo: surgical correction of right hip fracture; PT/OT to evaluate and possibly rehab after discharge Code Status: FULL Admission and Anticipated Discharge Date Admission Date: January 16, 2024 Supervising Physician Co-Signing Physician Notes I personally examined the patient and verified all sarmiento points of history and exam, discussed case, and agree with decision making with Dr Coombs Feeling okay. Pain under control with pain medicines. Awaiting orthopedics input at the time that I see him. Vitals noted, in general he is awake and alert slightly groggy from pain medicine but oriented no distress. Breathing unlabored no accessory muscle use good effort. Skin without rashes pallor or icterus. Neuro without focal deficits. Age-related osteoporotic fracture of the right hiporthopedics consult, anticipate surgery. Outpatient bone health workup and management. acute blood loss anemia related to fractures fortunately quite mild at this timecontinue to monitor Otherwise as above Subjective Patient laying in bed and comfortable. States pain is well controlled. No fevers, chills, chest pain, SOB, palpitations, or any other symptoms. No other concerns. Review of Systems Review of Systems: As per HPI. Physical Exam Physical Exam: GENERAL: AAOx3, afebrile, calm, NAD CARDIO: RRR, no r/m/g RESPIRATORY: CTA b/l, normal respiratory effort, NC on but not positioned in nasal passageways, no respiratory distress GI: soft, nondistended, nontender EXTREMITIES: no swelling or calf tenderness in b/l LE Results & Data Results & Data Vital Signs (Past 12 Hours) Vital Signs Temp Pulse Pulse Pulse Resp BP Pulse Ox 01/17/24 07:37 36.8 C 83 20 135/80 98 01/17/24 07:08 01/17/24 05:30 73 01/17/24 02:51 36.6 C 81 18 148/90 H 99 01/17/24 01:10 01/17/24 00:54 36.4 C L 90 20 164/97 H 99 01/17/24 00:18 83 17 164/94 H 97 01/16/24 23:46 99 01/16/24 23:06 80 24 165/96 H 99 01/16/24 22:37 80 01/16/24 22:27 86 16 175/106 H 98 O2 Del Method O2 Flow Rate 01/17/24 07:37 Nasal Cannula 2 01/17/24 07:08 Nasal Cannula 2 01/17/24 05:30 01/17/24 02:51 Nasal Cannula 2 01/17/24 01:10 Nasal Cannula 2 01/17/24 00:54 Nasal Cannula 2 01/17/24 00:18 Nasal Cannula 2 01/16/24 23:46 Room Air 01/16/24 23:06 Nasal Cannula 2 01/16/24 22:37 01/16/24 22:27 Nasal Cannula 2 Resident Activity Tracking Resident Involvement: Resident Care Provided Care Provided: Adult Hospital Medicine (1) A-fib Atrial fibrillation type: unspecified chronic Qualified Code(s): I48.20 - Chronic atrial fibrillation, unspecified (3) Closed fracture of right hip Encounter type: initial encounter Qualified Code(s): S72.001A - Fracture of unspecified part of neck of right femur, initial encounter for closed fracture (9) HTN (hypertension) Hypertension type: essential hypertension Qualified Code(s): I10 - Essential (primary) hypertension
[2024-01-17 12:02] LABS: ANTI-Xa, UFH(UnfractionatedHep 0.41 IU/ml (0.3-0.7)
--- NOTE | 2024-01-17 12:16 | Orthopedic Consultation ---
Date of Consultation January 17, 2024 Assessment & Plan (1) Intertrochanteric fracture of right femur: The x-ray images were discussed with the patient. The patient will continue on bedrest until surgery date. Plan for the OR will be in the next 1 or 2 days. His diet will change to his regular diet today then become n.p.o. after midnight tonight. I discussed surgical treatment with the patient as a trochanteric nailing. I also discussed postoperative rehabilitation and follow-up. A consent was placed on the front of the chart. History of Present Illness Reason for Consultation: Right hip pain/fracture Attending Physician: Aashish Huffman DO History of Present Illness This is a patient who sustained a fall yesterday and had pain in his right hip. He had an inability to ambulate and a deformity of the right leg. He was brought to [facility] ER where x-rays were performed and he was noted to have an intertrochanteric femur fracture. He was admitted by medicine and orthopedics was consulted for surgical evaluation. Allergies Allergy/AdvReac Type Severity Reaction Status Date / Time diazepam Allergy Intermediate rash Verified 01/16/24 19:59 baclofen Allergy Unknown CAN'T Verified 01/16/24 19:59 REMEMBER sulfamethoxazole AdvReac Severe SEE COMMENT Verified 01/16/24 19:59 [From Bactrim] trimethoprim [From Bactrim] AdvReac Severe SEE COMMENT Verified 01/16/24 19:59 morphine AdvReac Intermediate hallucinati Verified 01/16/24 19:59 ons prednisone AdvReac Intermediate INCREASED Verified 01/16/24 21:29 BP, INCREASED BS Home Medications Medication Instructions Recorded Confirmed Type multivitamin (Daily Multi-Vitamin 1 tab PO DAILY 12/28/19 01/16/24 History tablet) metoprolol succinate 50 mg 50 mg PO DAILY #90 tabs 01/10/21 01/16/24 Rx tablet,extended release 24 hr atorvastatin 20 mg tablet 20 mg PO QPM #90 tabs 04/28/21 01/16/24 Rx loratadine 10 mg tablet (Claritin) 10 mg PO DAILY PRN allergies 04/24/22 01/16/24 History furosemide 20 mg tablet 20 mg PO DAILY #30 tabs 03/25/23 01/16/24 Rx amlodipine 5 mg tablet 5 mg PO BID #60 tabs 04/07/23 01/16/24 Rx aspirin 81 mg tablet,delayed 81 mg PO DAILY 12/21/23 01/16/24 History release insulin glargine 100 unit/mL (3 17 unit subcut QPM 12/21/23 01/16/24 History mL) subcutaneous pen (Lantus Solostar U-100 Insulin) insulin lispro 100 unit/mL 1 sliding scale dose subcut TID 12/21/23 01/16/24 History subcutaneous pen (Humalog KwikPen (U-100) Insulin) olmesartan 5 mg tablet 5 mg PO DAILY 12/21/23 01/16/24 History Pradaxa 150 mg capsule (dabigatran 150 mg PO BID 15 days #30 caps 12/23/23 01/16/24 Rx etexilate) ascorbic acid (vitamin C) 1,000 mg 1 g PO DAILY 12/23/23 01/16/24 History tablet cholecalciferol (vitamin D3) 125 125 mcg PO DAILY 12/23/23 01/16/24 History mcg (5,000 unit) capsule dabigatran etexilate 150 mg capsule 150 mg PO BID #60 caps 12/23/23 01/16/24 Rx omeprazole 20 mg tablet,delayed 20 mg PO PM 12/23/23 01/16/24 History release sertraline 50 mg tablet 100 mg PO DAILY 12/23/23 01/16/24 History simethicone 125 mg capsule 125 mg PO DAILY PRN GAS DISCOMFORT 12/23/23 01/16/24 History solifenacin 5 mg tablet 5 mg PO DAILY 12/23/23 01/16/24 History tolterodine 2 mg tablet 2 mg PO DAILY 12/23/23 01/16/24 History triamcinolone acetonide 0.1 % 1 applic topical DAILY PRN Skin 12/23/23 01/16/24 History topical cream Irritation Blood pressure cuff #1 ea 01/04/24 Rx albuterol sulfate 90 mcg/actuation 1 - 2 inh inhalation .Q4-6HR PRN 01/16/24 01/16/24 History aerosol inhaler Shortness Of Breath calcium carbonate (Calcium 600) 600 mg PO DAILY 01/16/24 01/16/24 History Patient History Medical History COVID-19 Osteopenia of spine Low back pain Fatty liver Cardiomegaly Calcification of aorta Anemia Surgical History History of cataract surgery History of appendectomy History of lumpectomy History of incisional hernia repair History of inguinal hernia repair History of laminectomy History of partial colectomy Family History Sister Colorectal cancer Denies family history of Ovarian cancer Prostate cancer Myocardial infarction Breast cancer Social History Smoking Status: Former smoker Tobacco Type: Cigars Age Started Using Tobacco: 19; Age Quit Using Tobacco: 19; Second Hand Exposure: No; Do You Dip or Chew Tobacco: No; Hx Alcohol Use: No Hx Substance Use: No Preferred Language: Greek Communication Ability: Effective Visual Impairment: No Limitations Hearing Ability: Use of Hearing Aid Twisting Department End Finder Required: No Beliefs That Will Affect Care: None marital status: Current Living Situation: Spouse Current Living Situation Comment: lives in [facility] with current occupational status: retired current occupation: Lives 6 months in [place]. Former flores. [employer] How many Children do You have: 5 Other Information That Helps Us Care for You: No Feels Safe at Home: Yes Safety Concerns: Feels Safe At This Time Childhood Exposure to Second-Hand Smoke: No Diet: diabetic caffeine: Yes during the past year weight has: decreased > 10 lbs Dental Care, Regularly: Yes Physical Activity Frequency: Does not Exercise Seatbelt Use: sometimes Sunscreen Use: No Assistive Devices: Denture - Upper, Denture - Lower, Hearing Aid - Bilateral, Raised Toilet Seat and Walker Assistive Devices Comment: only has upper dentures here, hearing aids at home Physical Exam Constitutional: WD/WN, vitals as above no acute distress (Lying in bed. No acute distress. Appears comfortable.) Musculoskeletal: Extremities: + leg externally rotated (Right leg) Hip: + joint line tenderness (Right hip) and + log roll test positive (Right side); no skin erythema and no ecchymosis Skin: no rashes, warm and dry Neurologic: normal touch/pain/proprioception Psychiatric: A+Ox3, euthymic affect Speech: normal rate/rhythm/volume of speech Results & Data Vital Signs (Past 12 Hours) Vital Signs Temp Pulse Pulse Pulse Resp BP Pulse Ox 01/17/24 11:34 36.4 C L 82 20 107/68 95 01/17/24 09:19 98 01/17/24 07:37 36.8 C 83 20 135/80 98 01/17/24 07:08 01/17/24 05:30 73 01/17/24 02:51 36.6 C 81 18 148/90 H 99 01/17/24 01:10 01/17/24 00:54 36.4 C L 90 20 164/97 H 99 01/17/24 00:18 83 17 164/94 H 97 O2 Del Method O2 Flow Rate 01/17/24 11:34 Nasal Cannula 2 01/17/24 09:19 Room Air, Nasal Cannula 2 01/17/24 07:37 Nasal Cannula 2 01/17/24 07:08 Nasal Cannula 2 01/17/24 05:30 01/17/24 02:51 Nasal Cannula 2 01/17/24 01:10 Nasal Cannula 2 01/17/24 00:54 Nasal Cannula 2 01/17/24 00:18 Nasal Cannula 2 Diagnostic Findings The right hip x-rays were reviewed. There is a intertrochanteric femur fracture of the right hip.
--- NOTE | 2024-01-17 19:04 | Billing Data ---
Date of Service January 17, 2024 Coding Level of Care Code 20959 SUB INP/OBS CARE MIN
[2024-01-18] MEDS ORDERED: Nursing to Pharmacy Communication SCH ×2 (02:15→18:45)
[2024-01-18] MEDS: INSULIN ASPART PER UNIT CHARGE SC SCH ×2 (06:01→20:24)
--- NOTE | 2024-01-18 06:07 | Electrocardiogram Report ---
Test Reason : Blood Pressure : / mmHG Vent. Rate : 082 BPM Atrial Rate : 000 BPM P-R Int : 000 ms QRS Dur : 088 ms QT Int : 386 ms P-R-T Axes : 000 -31 010 degrees QTc Int : 450 ms Atrial fibrillation Left axis deviation Inferior infarct (cited on or before 31-MAR-2023) Abnormal ECG When compared with ECG of 03-APR-2023 11:59, No significant change Confirmed by Emilio Ying ([id number]) on 01/18/2024 6:07:24 AM Referred By: Confirmed By:Emilio Ying
[2024-01-18] MEDS ORDERED: POLYETHYLENE (MIRALAX) 17 GM PACK PO PRN (06:56)
[2024-01-18 07:16] LABS: Basophils # (auto) 0.06 K/uL (0.00-0.20); Basophils % (auto) 0.5 %; Eosinophils # (auto) 0.57 K/uL (0.00-0.50); Eosinophils % (auto) 4.6 %; Hematocrit (blood only) 35.3 % (42.0-52.0); Hemoglobin 12.3 g/dl (14.0-18.0); Immature Granulocytes # (auto) 0.11 K/uL (0.01-0.20); Immature Granulocytes % (auto) 0.9 %; Lymphocytes # (auto) 0.94 K/uL (1.20-3.40); Lymphocytes % (auto) 7.7 %; Mean Corpuscular Hemoglobin 30.1 pg (25.0-34.0); Mean Corpuscular Hgb Conc 34.8 g/dL (32.0-36.0); Mean Corpuscular Volume 86.3 fL (80.0-100.0); Mean Platelet Volume 9.9 fL (9.4-12.4); Monocytes # (auto) 1.34 K/uL (0.11-0.59); Monocytes % (auto) 10.9 %; Neutrophils # (auto) 9.25 K/uL (1.40-6.50); Neutrophils % (auto) 75.4 %; Platelet Count 180 K/uL (130-400); RDW Coefficient of Variation 13.4 % (11.5-14.5); RDW Standard Deviation 41.7 fL (36.4-46.3); Red Blood Count 4.09 M/uL (4.70-6.10); White Blood Count 12.27 K/ul (4.8-10.8)
[2024-01-18 07:25] LABS: ANTI-Xa, UFH(UnfractionatedHep 0.37 IU/ml (0.3-0.7); INR 1.1 (0.9-1.1); Prothrombin Time 12.3 Seconds (9.0-12.0)
[2024-01-18 08:17] LABS: Bilirubin,Total 1.1 mg/dl (0.2-1.0); Calcium 7.8 mg/dl (8.6-10.3); Creatinine Clr Calc Pharmacy 36.3 ml/min; Est GFR (African American) 39.7 ml/min; Est GFR (Non-African American) 34.3 ml/min; Globulin 2.9 gm/dl (2.5-4.0); Magnesium 1.6 mg/dl (1.7-2.4); Potassium 4.8 mmol/L (3.5-5.1); Total Protein 5.9 gm/dl (6.0-8.3)
[2024-01-18] MEDS: MAGNESIUM OXIDE 400 MG TAB PO SCH (09:11)
--- NOTE | 2024-01-18 09:47 | Hospitalist Progress Note ---
Date of Service January 18, 2024 Assessment & Plan (1) A-fib: (2) Anticoagulant long-term use: (3) Closed fracture of right hip: (4) Fall: (5) History of CVA (cerebrovascular accident): (6) Wound of foot: (7) Type II diabetes mellitus with complication: (8) BPH with obstruction/lower urinary tract symptoms: (9) HTN (hypertension): Plan Barney is an 88-year-old male with a past medical history significant for CKD 3, DM 2, GERD, BPH, MGUS, CVA, atrial fibrillation (on Pradaxa) who was admitted due to mechanical fall that resulted in right hip fracture. Closed Right-Hip fracture 2ry to fall Decreased bone density? - Currently stable and pain well controlled with current regimen Hip XR with acute minimally displaced intertrochanteric fracture of the right femur. - Head CT w/o sign of bleed or acute changes Ortho consulted and surgery scheduled as add-on today in the afternoon Patient NPO and Heparin held Fall precautions aspiration precautions, PT/OT consults - Given hip fracture after fall from small height, consider possible that there may have been an underlying decrease in bone density. Would encourage outpatient follow up for this and possibly consider bisphosphonate if appropriate 1-2 months after healing of current fracture. Right 2nd toe wound Follows podiatry as outpatient Wound care nurse consult been placed - XR of foot showing right second toe soft tissue swelling and equivocal erosion of the distal tuft of the distal phalanx of the right second toe. - Don't see record of noted osteomyelitis in EMR - Would consider further evaluation to r/o osteomyelitis once surgery completed A-fib Currently in rate controlled A-fib Pradaxa on hold. Heparin stopped for procedure today. Continue metoprolol CKD-3 - Baseline Creatinine 1.7. Am labs showing Cr of 1.76 in ams labs - Electrolytes in reference range - Follows with Dr. Malave - Continue to monitor am labs Hx CVA Patient sustained previous CVA approximately 1 year ago, has been on aspirin since Baseline right-sided weakness and problems with swallowing since his stroke Aspirin held for procedure today. - Aspiration precautions DM-2 Monitor BSG ACHS, goal is [id number] Hgb A1c (01/17/24) was 7.5% - Will order insulin and SSI - Consider glycemic regimen adjustment after discharge HTN Currently stable Continue amlodipine, olmesartan Will hold home furosemide for now given adequate BP and to prevent dehydration/ANA BPH No signs of infection on UA Continue to monitor signs of obstruction FEN: no fluids VTE ppx: Diet: HH, DM-2, Low Sodium Dispo: surgical correction of right hip fracture; PT/OT to evaluate and possibly rehab after discharge Code Status: FULL Admission and Anticipated Discharge Date Admission Date: January 16, 2024 Supervising Physician Co-Signing Physician Notes I personally examined the patient and verified all sarmiento points of history and exam, discussed case, and agree with decision making with Dr Coombs pain still under reasonable control. For surgery later today. Follows actively with surgical podiatry/foot and ankle orthopedics both locally and in [place]. Chronic ulcerations related to hammertoe and rubbing. Vitals noted, in general he is awake and alert pleasant no distress. HEENT normocephalic atraumatic mucous membranes moist. Breathing unlabored no accessory muscle use good effort. Skin without rashes pallor or icterus. Does have small ulcerations on toes, the one on the right foot is dressed. Right leg shortened and externally rotated. No focal neurodeficits. Age-related osteoporotic fracture of the right hip Pain control, for surgery later today. Outpatient bone health workup and management. acute blood loss anemia related to fractures fortunately still quite mild at this timecontinue to monitor toe ulceration/x-ray findings possibly consistent with osteomyelitiswould like to obtain records, but it is quite reassuring that he actively follows with foot and ankle surgeryI strongly suspect these are all chronic issues. Otherwise as above Subjective Patient in bed and states pain is currently a 4-5/10 in intensity. Has been feeling tired as he has not been able to sleep much. Seems to be slightly more confused this morning and has been forgetful. No worsening weakness other than the residual right-sided weakness from his hx of CVA. No fevers, chills, chest pain, SOB, or any other symptom. Review of Systems Review of Systems: As per HPI. Physical Exam Physical Exam: GENERAL: awake and alert, slightly confused but oriented, afebrile, calm, NAD CARDIO: RRR, no r/m/g RESPIRATORY: CTA b/l, normal respiratory effort, NC on but not positioned in n dang passageways, no respiratory distress GI: soft, nondistended, nontender EXTREMITIES: no swelling or calf tenderness in b/l LE Results & Data Results & Data Vital Signs (Past 12 Hours) Vital Signs Temp Pulse Pulse Resp BP BP Pulse Ox 01/18/24 08:38 01/18/24 07:55 37.0 C 93 H 16 143/79 H 95 01/18/24 03:08 36.9 C 89 18 149/78 H 95 01/17/24 22:53 36.9 C 91 H 18 144/84 H 95 01/17/24 21:47 84 O2 Del Method 01/18/24 08:38 Room Air 01/18/24 07:55 Room Air 01/18/24 03:08 Room Air 01/17/24 22:53 Room Air 01/17/24 21:47 Resident Activity Tracking Resident Involvement: Resident Care Provided Care Provided: Adult Hospital Medicine (1) A-fib Atrial fibrillation type: unspecified chronic Qualified Code(s): I48.20 - Chronic atrial fibrillation, unspecified (3) Closed fracture of right hip Encounter type: initial encounter Qualified Code(s): S72.001A - Fracture of unspecified part of neck of right femur, initial encounter for closed fracture (9) HTN (hypertension) Hypertension type: essential hypertension Qualified Code(s): I10 - Essential (primary) hypertension
--- NOTE | 2024-01-18 11:22 | Anesthesiology Consultation ---
Date of Service January 18, 2024 Assessment & Plan (1) Encounter for pre-operative examination: Chart Review Chart Review: Acceptable Risk for Surgery (last pradaxa 01/16/24 in AM) History Surgery Operation Date: 01/18/24 07:00 Proposed Procedures p Right Short Troch Nail - Sebas Garrett MD Height/Weight Height: 5 ft 10 in Weight: 103.6 kg Allergies Allergy/AdvReac Type Severity Reaction Status Date / Time diazepam Allergy Intermediate rash Verified 01/16/24 19:59 baclofen Allergy Unknown CAN'T Verified 01/16/24 19:59 REMEMBER sulfamethoxazole AdvReac Severe SEE COMMENT Verified 01/16/24 19:59 [From Bactrim] trimethoprim [From Bactrim] AdvReac Severe SEE COMMENT Verified 01/16/24 19:59 morphine AdvReac Intermediate hallucinati Verified 01/16/24 19:59 ons prednisone AdvReac Intermediate INCREASED Verified 01/16/24 21:29 BP, INCREASED BS Medications Home Medications Medication Instructions Recorded Confirmed Last Taken multivitamin (Daily Multi-Vitamin 1 tab PO DAILY 12/28/19 01/16/24 01/16/24 tablet) metoprolol succinate 50 mg 50 mg PO DAILY #90 tabs 01/10/21 01/16/24 01/16/24 tablet,extended release 24 hr atorvastatin 20 mg tablet 20 mg PO QPM #90 tabs 04/28/21 01/16/24 01/15/24 loratadine 10 mg tablet (Claritin) 10 mg PO DAILY PRN allergies 04/24/22 01/16/24 Unknown furosemide 20 mg tablet 20 mg PO DAILY #30 tabs 03/25/23 01/16/24 01/16/24 amlodipine 5 mg tablet 5 mg PO BID #60 tabs 04/07/23 01/16/24 01/16/24 08:00 aspirin 81 mg tablet,delayed 81 mg PO DAILY 12/21/23 01/16/24 01/16/24 release insulin glargine 100 unit/mL (3 17 unit subcut QPM 12/21/23 01/16/24 01/15/24 mL) subcutaneous pen (Lantus Solostar U-100 Insulin) insulin lispro 100 unit/mL 1 sliding scale dose subcut TID 12/21/23 01/16/24 01/16/24 subcutaneous pen (Humalog KwikPen (U-100) Insulin) olmesartan 5 mg tablet 5 mg PO DAILY 12/21/23 01/16/24 01/16/24 Pradaxa 150 mg capsule (dabigatran 150 mg PO BID 15 days #30 caps 12/23/23 01/16/24 01/16/24 08:00 etexilate) ascorbic acid (vitamin C) 1,000 mg 1 g PO DAILY 12/23/23 01/16/24 01/16/24 tablet cholecalciferol (vitamin D3) 125 125 mcg PO DAILY 12/23/23 01/16/24 01/16/24 mcg (5,000 unit) capsule dabigatran etexilate 150 mg capsule 150 mg PO BID #60 caps 12/23/23 01/16/24 01/16/24 08:00 omeprazole 20 mg tablet,delayed 20 mg PO PM 12/23/23 01/16/24 01/15/24 release sertraline 50 mg tablet 100 mg PO DAILY 12/23/23 01/16/24 01/16/24 simethicone 125 mg capsule 125 mg PO DAILY PRN GAS DISCOMFORT 12/23/23 01/16/24 Unknown solifenacin 5 mg tablet 5 mg PO DAILY 12/23/23 01/16/24 01/16/24 tolterodine 2 mg tablet 2 mg PO DAILY 12/23/23 01/16/24 01/16/24 triamcinolone acetonide 0.1 % 1 applic topical DAILY PRN Skin 12/23/23 01/16/24 Unknown topical cream Irritation Blood pressure cuff #1 ea 01/04/24 Unknown albuterol sulfate 90 mcg/actuation 1 - 2 inh inhalation .Q4-6HR PRN 01/16/24 01/16/24 Unknown aerosol inhaler Shortness Of Breath calcium carbonate (Calcium 600) 600 mg PO DAILY 01/16/24 01/16/24 01/16/24 Active Medications Generic Name Dose Route Start Last Admin Trade Name Freq PRN Reason Stop Dose Admin Amlodipine Besylate 5 mg 01/17/24 00:52 01/18/24 08:29 Amlodipine Besylate 5 Mg Tab PO 02/16/24 00:51 5 mg BID MILAGROS Administration Aspirin 81 mg 01/17/24 09:00 01/17/24 08:05 Aspirin 81 Mg Ectab PO 02/16/24 08:59 81 mg DAILY MILAGROS Administration Atorvastatin Calcium 20 mg 01/17/24 00:52 01/17/24 20:19 Atorvastatin 20 Mg Tab PO 02/16/24 00:51 20 mg QPM MILAGROS Administration Hydromorphone HCl 0.5 mg 01/16/24 21:29 01/18/24 09:11 Hydromorphone Inj 0.5 Mg/0.5 Ml Syr IV 01/30/24 21:28 0.5 mg Q3H PRN Administration Pain (6,7,8,9,10) Insulin Aspart 0 units 01/18/24 06:00 01/18/24 06:01 Insulin Aspart Per Unit Charge SC 02/17/24 05:59 1 units Q6 MILAGROS Administration Insulin Glargine 8 units 01/17/24 09:00 01/18/24 09:13 Lantus Per Unit Charge SQ 02/16/24 08:59 Not Given BID MILAGROS Losartan Potassium 12.5 mg 01/17/24 09:00 01/17/24 08:05 Losartan Potassium 25 Mg Tab PO 02/16/24 08:59 12.5 mg DAILY MILAGROS Administration Magnesium Oxide 400 mg 01/18/24 09:00 01/18/24 09:11 Magnesium Oxide 400 Mg Tab PO 02/17/24 08:59 400 mg BID MILAGROS Administration Metoprolol Succinate 50 mg 01/17/24 09:00 01/18/24 08:29 Metoprolol Succ 50mg Ext Rel Tab PO 02/16/24 08:59 50 mg DAILY MILAGROS Administration Oxybutynin Chloride 5 mg 01/17/24 09:00 01/18/24 08:29 Oxybutynin Chloride Xl 5 Mg Tabcr PO 02/16/24 08:59 5 mg DAILY MILAGROS Administration Pantoprazole Sodium 40 mg 01/17/24 01:15 01/17/24 20:19 Pantoprazole 40 Mg Tab PO 02/16/24 01:14 40 mg PM MILAGROS Administration Sertraline HCl 100 mg 01/17/24 09:00 01/18/24 08:29 Sertraline Hcl 100 Mg Tablet PO 02/16/24 08:59 100 mg DAILY MILAGROS Administration Past Medical History Medical History (Updated 01/18/24 @ 11:22 by Brian Baltazar MD) A-fib History of CVA (cerebrovascular accident) Type II diabetes mellitus with complication Stage III chronic kidney disease BPH with obstruction/lower urinary tract symptoms HTN (hypertension) COVID-19 Osteopenia of spine Low back pain Fatty liver Cardiomegaly Calcification of aorta Anemia Past Family History Family History Sister Colorectal cancer Denies family history of Ovarian cancer Prostate cancer Myocardial infarction Breast cancer Past Surgical History Surgical History History of cataract surgery History of appendectomy History of lumpectomy History of incisional hernia repair History of inguinal hernia repair History of laminectomy History of partial colectomy Social History Smoking Status: Former smoker tobacco type: cigarettes, pipe and cigars Do You Dip or Chew Tobacco: No Hx Alcohol Use: No Hx Substance Use: No substance use type: does not use Physical Exam Vital Signs Last Vital Signs Temp 37.0 C 01/18/24 07:55 Pulse 93 H 01/18/24 07:55 Resp 16 01/18/24 07:55 BP 143/79 H 01/18/24 07:55 Pulse Ox 95 01/18/24 07:55 O2 Del Method Room Air 01/18/24 08:38 O2 Flow Rate 2 01/17/24 11:34 Testing Laboratory Results 01/18/24 06:57 01/18/24 06:57 PT 12.3 Seconds (9.0-12.0) H 01/18/24 06:57 INR 1.1 (0.9-1.1) 01/18/24 06:57 Hemoglobin A1c 7.5 % (4.5-5.6) H 01/17/24 04:48 Urine Color Yellow 01/16/24 21:10 Urine Appearance Clear (Clear) 01/16/24 21:10 Urine pH 6.0 (4.5-7.5) 01/16/24 21:10 Ur Specific [place] 1.014 (1.000-1.030) 01/16/24 21:10 Urine Protein 4+ (Negative) H 01/16/24 21:10 Urine Glucose (UA) 1+ (Negative) H 01/16/24 21:10 Urine Ketones Negative (Negative) 01/16/24 21:10 Urine Nitrite Negative (Negative) 01/16/24 21:10 Ur Leukocyte Esterase Negative (Negative) 01/16/24 21:10 Urine WBC (Auto) 0-5 /hpf (0-5) 01/16/24 21:10 Urine RBC (Auto) 3-5 /hpf (0-2) H 01/16/24 21:10 U Hyaline Cast (Auto) 3-5 /lpf (0-2) H 01/16/24 21:10 U Epithel Cells (Auto) 0-2 /hpf (0-2) 01/16/24 21:10 Urine Bacteria (Auto) None Seen (None Seen) 01/16/24 21:10 Blood Type O Positive 01/18/24 06:57 Antibody Screen NEGATIVE 01/18/24 06:57 01/18/24 05:52 POC Glucose 161 H Electrocardiogram Date: 01/16/24 Findings: + AFIB @ (82) and + SD (inferior (old)) Echocardiogram Date: 06/11/23 EF: 65-70% LV Function: normal Valvular Disease: + no significant valvular disease
--- NOTE | 2024-01-18 13:06 | Billing Data ---
Date of Service January 18, 2024 Coding Level of Care Code 41200 SUB INP/OBS CARE
[2024-01-18] MEDS ORDERED: SUCCINYLCHOLINE CHLORIDE 20 MG/ML 10 ML VIAL IV ONE (14:53)
[2024-01-18] MEDS ORDERED: fentaNYL citrate PF 100 MCG/2 ML VIAL ONE (14:53)
[2024-01-18] MEDS ORDERED: ROCURONIUM BROMIDE 10 MG/ML 5 ML VIAL IV ONE (14:54)
[2024-01-18] MEDS ORDERED: ONDANSETRON INJ 2 MG/ML 2 ML VIAL ONE (14:54)
[2024-01-18] MEDS ORDERED: DEXAMETHASONE SOD INJ 4 MG/ML VIAL ONE (14:54)
[2024-01-18] MEDS ORDERED: LIDOCAINE 2% 2 ML VIAL/AMP(20MG/ML) INFIL ONE (14:54)
--- NOTE | 2024-01-18 15:28 | History & Physical Bridge Note ---
Date of Service January 18, 2024 History & Physical Bridge Note I have examined the patient, reviewed the History & Physical and in the interval since the performance of the History & Physical I have noted the following changes of clinical significance: no changes noted
[2024-01-18] MEDS ORDERED: KETAMINE HCL 10MG/ML SYR ONE (15:44)
[2024-01-18] MEDS ORDERED: PHENYLEPHRINE HCL 10 MG/ML VIAL ONE (15:50)
[2024-01-18] MEDS ORDERED: SUGAMMADEX SODIUM 200 MG/2 ML VIAL IV ONE (16:18)
--- NOTE | 2024-01-18 16:47 | Post Operative Brief Note ---
Immediate Post Op Note Date of Surgery January 18, 2024 Pre & Post Diagnosis Operation Date: 01/18/24 07:00 <No data on this case meets the specified criteria> I identified the patient and participated in the time-out.: Yes Procedure Operation Date: 01/18/24 07:00 <No data on this case meets the specified criteria> Surgeon Sebas Garrett MD Field Sales Manager Davian Mike PA-C Estimated Blood Loss 100 Findings Consistent with Post-Op Diagnosis Drains Haji Catheter (Present on arrival to OR)
--- NOTE | 2024-01-18 16:52 | Operative Report ---
Post Operative Report Pre & Post Diagnosis Operation Date: 01/18/24 07:00 Pre-Op Diagnosis: Intertrochanteric fracture of right femur Post-Op Diagnosis: Intertrochanteric fracture of right femur I identified the patient and participated in the time-out.: Yes Procedure Operation Date: 01/18/24 07:00 Actual Procedures p Right Hip Short Trochanteric Nailing(Right) - Sebas Garrett MD Surgeon Sebas Garrett MD Sales Center Manager Davian Mike PA-C Estimated Blood Loss 100 Findings Consistent with Post-Op Diagnosis 2 part intertrochanteric fracture hip patient had very dense bone Specimens none Description of Procedure following satisfactory general anesthesia the patient was supine on the operating table with the fracture attachment. The right leg was placed in the traction and device in the left leg in the well-leg brito. Positioning was confirmed with fluoroscopy. Leg was prepared with ChloraPrep and draped sterilely. A incision was made in line with the greater trochanter through the gluteus evaristo muscle to the tip of the greater trochanter the fascia was opened the tip of the trochanter was identified. A guidewire was introduced into the tip of the greater trochanter into the proximal femur with position confirmed with AP and lateral fluoroscopy. The opening drill was then used to create an opening in the greater trochanter. A 10 mm x 170 short troches nail with a 130 degree angle was then advanced through the opening into the appropriate position with position confirmed in AP and lateral fluoroscopic imaging. A guidewire was then introduced into the inferior medial femoral neck in a position of maximum depth confirmed with AP and lateral fluoroscopy. The guidewire was overdrilled and a 105 helical blade was advanced. The patient had extremely dense bone and advancement of the helical blade required some effort. Fluoroscopy for confirmed good position in AP and lateral imaging. The fracture site was compressed and then locked and then released for static compression. A single locking screw was then placed through the lateral jig with position confirmed with fluoroscopy and a 38 mm screw was placed again the bone was extremely dense and placement of the screw was somewhat difficult. AP and lateral fluoroscopy confirmed acceptable position of the hardware and reduction of the fracture and components in correct orientation. Both wounds were irrigated copiously with bulb lavage. The fascia was closed with interrupted [id number] sutures of 0 Vicryl. The subcutaneous tissues were closed with 2-0 Vicryl deep and surgical mary in the skin. A dry dressing was applied. The patient was returned to his bed in stable condition. Note: Davian ALVARENGA was present and assisted throughout due to the complicated nature of this case. He help with preparation and set up an nurses medical assistants phlebotomists throughout. He assisted with hemostasis and exposure throughout the procedure. He also helped closed the fascial subcutaneous and skin layers and applied the postop dressing. I attest to the content of the Intraoperative Record and any orders documented therein. Any exceptions are noted below.
[2024-01-18] MEDS: ONDANSETRON INJ 2 MG/ML 2 ML VIAL IV PRN (17:49)
[2024-01-18] MEDS ORDERED: ePHEDrine sulfate 50 MG/ML AMP IV PRN (17:51)
[2024-01-18] MEDS ORDERED: fentaNYL citrate PF 100 MCG/2 ML VIAL IV PRN (17:51)
--- NOTE | 2024-01-18 17:51 | Anesthesiology Progress Note ---
Date of Service January 18, 2024 Anesthesia Post Procedure Vital Signs Vital Signs: Temp Pulse Pulse Pulse Resp BP BP 01/18/24 17:22 36.5 C 89 16 143/82 H 01/18/24 14:27 94 H 01/18/24 14:15 37 C 93 H 18 135/98 01/18/24 12:19 36.8 C 99 H 16 142/77 H 01/18/24 08:38 01/18/24 07:55 37.0 C 93 H 16 143/79 H 01/18/24 03:08 36.9 C 89 18 149/78 H 01/17/24 22:53 36.9 C 91 H 18 144/84 H 01/17/24 21:47 84 01/17/24 19:23 36.9 C 90 18 117/69 Pulse Ox O2 Del Method O2 Flow Rate 01/18/24 17:22 94 Nasal Cannula 4 01/18/24 14:27 01/18/24 14:15 95 Room Air 01/18/24 12:19 92 Room Air 01/18/24 08:38 Room Air 01/18/24 07:55 95 Room Air 01/18/24 03:08 95 Room Air 01/17/24 22:53 95 Room Air 01/17/24 21:47 01/17/24 19:23 94 Room Air Pain Intensity Right Hip: Pain Intensity: 5 Transfer of Care Handoff Completed per policy Notes Mental Status: alert / awake / arousable and participated in evaluation Patient Amnestic to Procedure: Yes Nausea / Vomiting: adequately controlled Pain: adequately controlled Airway Patency, RR, SpO2: stable & adequate BP & HR: stable & adequate Hydration State: stable & adequate Anesthetic Complications: no major complications apparent and Pt Satisfied with anesthetic care
--- NOTE | 2024-01-18 17:57 | Fluoroscopy Report ---
FL hip RT 2-3V CLINICAL HISTORY: RIGHT SHORT TROCHNAIL COMPARISON STUDY: Right hip 6:30 24th FLUOROSCOPY TIME: 75 seconds FLUOROSCOPY IMAGES: 3 Ka,r: 22.9 mGy FINDINGS: Status post internal fixation of the right femoral intertrochanteric fracture with a proxim al femoral intramedullary cherelle and interlocking femoral neck pin. The hardware appears intact. Alignme nt appears near-anatomic. IMPRESSION: Fluoroscopic assistance as above. ACT 112: Negative or not required by law. Electronically signed by: Cristofer Amaro M.D. 01/18/2024 5:56 PM
[2024-01-18] MEDS: ONDANSETRON INJ 2 MG/ML 2 ML VIAL ONE (18:12)
[2024-01-18] MEDS: ceFAZolin 2000MG 2,000 MG/15 ML SYR IV ONE (18:45)
[2024-01-18] MEDS: ceFAZolin 2000MG 2,000 MG/15 ML SYR IV SCH (20:24)
[2024-01-19 06:24] LABS: Basophils # (auto) 0.02 K/uL (0.00-0.20); Basophils % (auto) 0.1 %; Eosinophils # (auto) 0.01 K/uL (0.00-0.50); Eosinophils % (auto) 0.1 %; Hematocrit (blood only) 33.1 % (42.0-52.0); Hemoglobin 11.6 g/dl (14.0-18.0); Immature Granulocytes # (auto) 0.13 K/uL (0.01-0.20); Lymphocytes # (auto) 0.47 K/uL (1.20-3.40); Lymphocytes % (auto) 3.5 %; Mean Corpuscular Hemoglobin 29.9 pg (25.0-34.0); Mean Corpuscular Volume 85.3 fL (80.0-100.0); Mean Platelet Volume 10.3 fL (9.4-12.4); Monocytes # (auto) 1.19 K/uL (0.11-0.59); Monocytes % (auto) 8.8 %; Neutrophils # (auto) 11.65 K/uL (1.40-6.50); Neutrophils % (auto) 86.5 %; Platelet Count 208 K/uL (130-400); RDW Coefficient of Variation 13.4 % (11.5-14.5); RDW Standard Deviation 41.5 fL (36.4-46.3); Red Blood Count 3.88 M/uL (4.70-6.10); White Blood Count 13.47 K/ul (4.8-10.8)
[2024-01-19 06:40] LABS: BUN Creatinine Ratio 18.5 (10-20); Calcium 7.8 mg/dl (8.6-10.3); Creatinine Clr Calc Pharmacy 31.3 ml/min; Est GFR (Non-African American) 28.5 ml/min; Potassium 4.8 mmol/L (3.5-5.1)
[2024-01-19] MEDS: LACTATED RINGER'S 1,000 ML IV SCH (08:15)
--- NOTE | 2024-01-19 09:18 | Hospitalist Progress Note ---
Date of Service January 19, 2024 Assessment & Plan (1) A-fib: (2) Anticoagulant long-term use: (3) Closed fracture of right hip: (4) Fall: (5) History of CVA (cerebrovascular accident): (6) Wound of foot: (7) Type II diabetes mellitus with complication: (8) BPH with obstruction/lower urinary tract symptoms: (9) HTN (hypertension): Plan Barney is an 88-year-old male with a past medical history significant for CKD 3, DM 2, GERD, BPH, MGUS, CVA, atrial fibrillation (on Pradaxa) who was admitted due to mechanical fall that resulted in right hip fracture. Closed Right-Hip fracture 2ry to fall // s/p right hip short trochanteric nailing (POD #1) Decreased bone density? - Currently stable and pain well controlled with current regimen Fall precautions aspiration precautions - PT/OT consults; anticipate discharge to acute rehab. CM following. - Would encourage outpatient evaluation of bone density given fracture from minor fall Right 2nd toe wound Follows podiatry as outpatient Wound care nurse consult been placed - XR of foot showing right second toe soft tissue swelling and equivocal erosion of the distal tuft of the distal phalanx of the right second toe. - Don't see record of noted osteomyelitis in EMR - Would consider further evaluation to r/o osteomyelitis either as inpatient or after discharge as patient is stable A-fib Currently in rate controlled A-fib Will resume anticoagulation tomorrow as patient is post-op Continue metoprolol CKD-3 // ANA (pre-renal?) - Baseline Creatinine 1.7; am labs with Cr of 2.05 Possibly pre-renal as patient has not had much oral hydration since admission - Electrolytes in reference range - Start IVF - Continue to monitor am labs Hx CVA Patient sustained previous CVA approximately 1 year ago, has been on aspirin since Baseline right-sided weakness and problems with swallowing since his stroke Aspirin held for procedure; may restart tomorrow - Aspiration precautions DM-2 Monitor BSG ACHS, goal is [id number] Hgb A1c (01/17/24) was 7.5% - Will order insulin and SSI - Consider glycemic regimen adjustment after discharge HTN Currently stable Continue amlodipine, olmesartan Will hold home furosemide for now given adequate BP and to prevent worsening dehydration/ANA BPH No signs of infection on UA Continue to monitor signs of obstruction FEN: no fluids VTE ppx: re-start Pradaxa tomorrow Diet: HH, DM-2, Low Sodium Dispo: PT/OT to evaluate and likely acute rehab after discharge Code Status: FULL Admission and Anticipated Discharge Date Admission Date: January 16, 2024 Supervising Physician Co-Signing Physician Notes I personally examined the patient and verified all sarmiento points of history and exam, discussed case, and agree with decision making with Dr Coombs Out of bed. Pain controlled. PT/OT input appreciated. Awaiting dispo options. Vitals noted, in general he is awake and alert pleasant no distress. HEENT normocephalic atraumatic mucous membranes moist. Breathing unlabored no accessory muscle use good effort. Skin without rashes pallor or icterus. Does have small ulcerations on toes, the one on the right foot is dressed. 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 PT/OT eval and treat. For rehab placement. Outpatient bone health workup and management. acute blood loss anemia related to fractures fortunately still quite mild at this timecontinue to monitor. ANA on CKD 3 likely due to volume lossreally more than anything at the upper end of his baseline range. IV fluids and follow. toe ulceration/x-ray findings possibly consistent with osteomyelitiswould like to obtain records, but it is quite reassuring that he actively follows with foot and ankle surgeryI strongly suspect these are all chronic issues. reached out to his foot and ankle surgeon, awaiting reply Otherwise as above Subjective Patient lying in bed eating breakfast. States pain is well controlled with current analgesic regimen. Has right LE weakness and states he cannot lift that leg. Has been feeling somewhat confused since arriving to the hospital but able to re-orient himself. No fevers, chills, chest orantes, SOB, or any other symptoms. Review of Systems Review of Systems: As per HPI. Physical Exam Physical Exam: GENERAL: awake and alert, afebrile, calm, NAD CARDIO: RRR, no r/m/g RESPIRATORY: CTA b/l, normal respiratory effort, no respiratory distress GI: soft, nondistended, nontender EXTREMITIES: no swelling or calf tenderness in b/l LE Results & Data Results & Data Vital Signs (Past 12 Hours) Vital Signs Temp Pulse Pulse Resp BP BP Pulse Ox 01/19/24 07:38 07/03/24 07:34 36.5 C 99 H 15 144/77 H 95 01/19/24 03:00 36.7 C 87 18 148/79 H 95 01/18/24 22:24 97 H 01/18/24 22:12 36.5 C 100 H 18 135/80 96 O2 Del Method 01/19/24 07:38 Room Air 01/19/24 07:34 Room Air 01/19/24 03:00 Room Air 01/18/24 22:24 01/18/24 22:12 Room Air Resident Activity Tracking Resident Involvement: Resident Care Provided Care Provided: Adult Hospital Medicine (1) A-fib Atrial fibrillation type: unspecified chronic Qualified Code(s): I48.20 - Chronic atrial fibrillation, unspecified (3) Closed fracture of right hip Encounter type: initial encounter Qualified Code(s): S72.001A - Fracture of unspecified part of neck of right femur, initial encounter for closed fracture (9) HTN (hypertension) Hypertension type: essential hypertension Qualified Code(s): I10 - Essential (primary) hypertension
--- NOTE | 2024-01-19 12:57 | Billing Data ---
Date of Service January 19, 2024 Coding Level of Care Code 63367 SUB INP/OBS CARE
--- NOTE | 2024-01-19 14:27 | Orthopedic Progress Note ---
<Statement entered by Sebas Garrett MD - 01/21/24 08:36> Patient was seen and agree with above findings Date of Service January 19, 2024 Assessment & Plan (1) Intertrochanteric fracture of right femur: Plan: Postop day 1 status post right TFN PT/OT protocols. Weightbearing as tolerated. DVT prophylaxis- Ok to resume Dabigatran this evening. SCD's. pain management as written. DC planning-patient is planning for [facility] when medically stable for surgery. Admission and Anticipated Discharge Date Admission Date: January 16, 2024 Subjective POD 1 patient sitting up in bed awake and alert. Patient is accompanied by his . Patient states that he has been having pain off and on in the right hip but was able to get out of bed today with help with physical therapy and was sitting in his chair for approximately 2 hours. No other complaints today. Physical Exam Physical Exam: Dressings are clean, dry, and intact. Thigh is swollen consistent with surgery. Calves are soft nontender. Neurovascular appears intact. Results & Data Vital Signs (Past 12 Hours) Vital Signs Temp Pulse Pulse Resp BP BP Pulse Ox 01/19/24 14:12 94 H 01/19/24 11:30 36.7 C 80 15 150/80 H 94 01/19/24 07:38 01/19/24 07:34 36.5 C 99 H 15 144/77 H 95 01/19/24 03:00 36.7 C 87 18 148/79 H 95 O2 Del Method 01/19/24 14:12 01/19/24 11:30 Room Air 01/19/24 07:38 Room Air 01/19/24 07:34 Room Air 01/19/24 03:00 Room Air Laboratory Results 01/19/24 01/19/24 01/19/24 Range/Units 12:17 08:18 05:39 WBC 13.47 H (4.8-10.8) K/ul RBC 3.88 L (4.70-6.10) M/uL Hgb 11.6 L (14.0-18.0) g/dl Hct 33.1 L (42.0-52.0) % MCV 85.3 (80.0-100.0) fL MCH 29.9 (25.0-34.0) pg MCHC 35.0 (32.0-36.0) g/dL RDW Std Deviation 41.5 (36.4-46.3) fL RDW Coeff of Nilesh 13.4 (11.5-14.5) % Plt Count 208 (130-400) K/uL MPV 10.3 (9.4-12.4) fL Immature Gran % (Auto) 1.0 % Neut % (Auto) 86.5 % Lymph % (Auto) 3.5 % Baca % (Auto) 8.8 % Eos % (Auto) 0.1 % Baso % (Auto) 0.1 % Neut # (Auto) 11.65 H (1.40-6.50) K/uL Lymph # (Auto) 0.47 L (1.20-3.40) K/uL Baca # (Auto) 1.19 H (0.11-0.59) K/uL Eos # (Auto) 0.01 (0.00-0.50) K/uL Baso # (Auto) 0.02 (0.00-0.20) K/uL Immature Gran # (Auto) 0.13 (0.01-0.20) K/uL Sodium 134 L (136-145) mmol/L Potassium 4.8 (3.5-5.1) mmol/L Chloride 101 (98-107) mmol/L Carbon Dioxide 24 (21-32) mmol/L Anion Gap 9 (3-11) BUN 38 H (6-23) mg/dl Creatinine 2.05 H (0.6-1.4) mg/dl Est Cr Clr Drug Dosing 31.3 ml/min Est GFR ( Amer) 33.0 ml/min Est GFR (Non-Af Amer) 28.5 ml/min BUN/Creatinine Ratio 18.5 (10-20) Glucose 238 H (70-99(Fasting)) mg/dl POC Glucose 242 H 225 H (70-99) mg/dl Calcium 7.8 L (8.6-10.3) mg/dl 25-OH Vitamin D Total 41.2 (30-100) ng/ml 01/18/24 01/18/24 Range/Units 20:01 17:20 WBC (4.8-10.8) K/ul RBC (4.70-6.10) M/uL Hgb (14.0-18.0) g/dl Hct (42.0-52.0) % MCV (80.0-100.0) fL MCH (25.0-34.0) pg MCHC (32.0-36.0) g/dL RDW Std Deviation (36.4-46.3) fL RDW Coeff of Nilesh (11.5-14.5) % Plt Count (130-400) K/uL MPV (9.4-12.4) fL Immature Gran % (Auto) % Neut % (Auto) % Lymph % (Auto) % Baca % (Auto) % Eos % (Auto) % Baso % (Auto) % Neut # (Auto) (1.40-6.50) K/uL Lymph # (Auto) (1.20-3.40) K/uL Baca # (Auto) (0.11-0.59) K/uL Eos # (Auto) (0.00-0.50) K/uL Baso # (Auto) (0.00-0.20) K/uL Immature Gran # (Auto) (0.01-0.20) K/uL Sodium (136-145) mmol/L Potassium (3.5-5.1) mmol/L Chloride (98-107) mmol/L Carbon Dioxide (21-32) mmol/L Anion Gap (3-11) BUN (6-23) mg/dl Creatinine (0.6-1.4) mg/dl Est Cr Clr Drug Dosing ml/min Est GFR ( Amer) ml/min Est GFR (Non-Af Amer) ml/min BUN/Creatinine Ratio (10-20) Glucose (70-99(Fasting)) mg/dl POC Glucose 168 H 121 H (70-99) mg/dl Calcium (8.6-10.3) mg/dl 25-OH Vitamin D Total (30-100) ng/ml
[2024-01-20 07:32] LABS: Basophils # (auto) 0.02 K/uL (0.00-0.20); Basophils % (auto) 0.2 %; Eosinophils # (auto) 0.47 K/uL (0.00-0.50); Eosinophils % (auto) 4.2 %; Hematocrit (blood only) 30.8 % (42.0-52.0); Hemoglobin 10.6 g/dl (14.0-18.0); Immature Granulocytes # (auto) 0.11 K/uL (0.01-0.20); Lymphocytes # (auto) 0.78 K/uL (1.20-3.40); Mean Corpuscular Hemoglobin 29.5 pg (25.0-34.0); Mean Corpuscular Hgb Conc 34.4 g/dL (32.0-36.0); Mean Corpuscular Volume 85.8 fL (80.0-100.0); Mean Platelet Volume 10.1 fL (9.4-12.4); Monocytes # (auto) 1.14 K/uL (0.11-0.59); Monocytes % (auto) 10.3 %; Neutrophils # (auto) 8.57 K/uL (1.40-6.50); Neutrophils % (auto) 77.3 %; Platelet Count 197 K/uL (130-400); RDW Coefficient of Variation 13.4 % (11.5-14.5); Red Blood Count 3.59 M/uL (4.70-6.10); White Blood Count 11.09 K/ul (4.8-10.8)
[2024-01-20] MEDS: DABIGATRAN ETEXILATE 75 MG CAP PO SCH (07:52)
[2024-01-20 08:16] LABS: Albumin Level 2.9 gm/dl (3.4-5.0); BUN Creatinine Ratio 24.3 (10-20); Bilirubin,Total 0.8 mg/dl (0.2-1.0); Calcium 7.9 mg/dl (8.6-10.3); Creatinine Clr Calc Pharmacy 37.4 ml/min; Est GFR (African American) 40.5 ml/min; Globulin 2.8 gm/dl (2.5-4.0); Potassium 4.4 mmol/L (3.5-5.1); Total Protein 5.7 gm/dl (6.0-8.3)
--- NOTE | 2024-01-20 08:46 | Orthopedic Progress Note ---
Date of Service January 20, 2024 Assessment & Plan (1) Intertrochanteric fracture of right femur: Plan: 88 yo male stable POD #2 s/p right hip troch nail 1. Med management 2. DVT prophylaxis- Pradaxa, SCDs 3. PT/OT 4. D/C planning- per medicine, ortho to sign off, instructions in d/c Admission and Anticipated Discharge Date Admission Date: January 16, 2024 Subjective Pt resting in bed, denies complaints, pain controlled Physical Exam Physical Exam: Dressing clean, dry, intact; thigh soft; toes mobile, NVI Results & Data Vital Signs (Past 12 Hours) Vital Signs Temp Pulse Pulse Resp BP Pulse Ox O2 Del Method 01/20/24 07:37 36.6 C 87 17 166/81 H 95 Room Air 01/20/24 07:00 90 01/20/24 02:18 36.7 C 93 H 18 150/81 H 91 Room Air 01/19/24 22:23 36.9 C 92 H 18 135/77 91 Room Air 01/19/24 21:57 90 Laboratory Results 01/20/24 01/20/24 01/20/24 Range/Units 08:11 06:36 06:28 WBC 11.09 H (4.8-10.8) K/ul RBC 3.59 L (4.70-6.10) M/uL Hgb 10.6 L (14.0-18.0) g/dl Hct 30.8 L (42.0-52.0) % MCV 85.8 (80.0-100.0) fL MCH 29.5 (25.0-34.0) pg MCHC 34.4 (32.0-36.0) g/dL RDW Std Deviation 42.0 (36.4-46.3) fL RDW Coeff of Nilesh 13.4 (11.5-14.5) % Plt Count 197 (130-400) K/uL MPV 10.1 (9.4-12.4) fL Immature Gran % (Auto) 1.0 % Neut % (Auto) 77.3 % Lymph % (Auto) 7.0 % Mcmullen % (Auto) 10.3 % Eos % (Auto) 4.2 % Baso % (Auto) 0.2 % Neut # (Auto) 8.57 H (1.40-6.50) K/uL Lymph # (Auto) 0.78 L (1.20-3.40) K/uL Mcmullen # (Auto) 1.14 H (0.11-0.59) K/uL Eos # (Auto) 0.47 (0.00-0.50) K/uL Baso # (Auto) 0.02 (0.00-0.20) K/uL Immature Gran # (Auto) 0.11 (0.01-0.20) K/uL Sodium 137 (136-145) mmol/L Potassium 4.4 (3.5-5.1) mmol/L Chloride 104 (98-107) mmol/L Carbon Dioxide 26 (21-32) mmol/L Anion Gap 7 (3-11) BUN 42 H (6-23) mg/dl Creatinine 1.73 H D (0.6-1.4) mg/dl Est Cr Clr Drug Dosing 37.4 ml/min Est GFR ( Amer) 40.5 ml/min Est GFR (Non-Af Amer) 35.0 ml/min BUN/Creatinine Ratio 24.3 H (10-20) Glucose 150 H (70-99(Fasting)) mg/dl POC Glucose 134 H (70-99) mg/dl Calcium 7.9 L (8.6-10.3) mg/dl Total Bilirubin 0.8 (0.2-1.0) mg/dl AST 13 (13-39) U/L ALT 3 L (7-52) U/L Alkaline Phosphatase 114 H (34-104) U/L Total Protein 5.7 L (6.0-8.3) gm/dl Albumin 2.9 L (3.4-5.0) gm/dl Globulin 2.8 (2.5-4.0) gm/dl Albumin/Globulin Ratio 1.0 (0.9-2) 01/19/24 01/19/24 01/19/24 Range/Units 20:11 17:10 12:17 WBC (4.8-10.8) K/ul RBC (4.70-6.10) M/uL Hgb (14.0-18.0) g/dl Hct (42.0-52.0) % MCV (80.0-100.0) fL MCH (25.0-34.0) pg MCHC (32.0-36.0) g/dL RDW Std Deviation (36.4-46.3) fL RDW Coeff of Nilesh (11.5-14.5) % Plt Count (130-400) K/uL MPV (9.4-12.4) fL Immature Gran % (Auto) % Neut % (Auto) % Lymph % (Auto) % Mcmullen % (Auto) % Eos % (Auto) % Baso % (Auto) % Neut # (Auto) (1.40-6.50) K/uL Lymph # (Auto) (1.20-3.40) K/uL Mcmullen # (Auto) (0.11-0.59) K/uL Eos # (Auto) (0.00-0.50) K/uL Baso # (Auto) (0.00-0.20) K/uL Immature Gran # (Auto) (0.01-0.20) K/uL Sodium (136-145) mmol/L Potassium (3.5-5.1) mmol/L Chloride (98-107) mmol/L Carbon Dioxide (21-32) mmol/L Anion Gap (3-11) BUN (6-23) mg/dl Creatinine (0.6-1.4) mg/dl Est Cr Clr Drug Dosing ml/min Est GFR ( Amer) ml/min Est GFR (Non-Af Amer) ml/min BUN/Creatinine Ratio (10-20) Glucose (70-99(Fasting)) mg/dl POC Glucose 251 H 294 H 242 H (70-99) mg/dl Calcium (8.6-10.3) mg/dl Total Bilirubin (0.2-1.0) mg/dl AST (13-39) U/L ALT (7-52) U/L Alkaline Phosphatase (34-104) U/L Total Protein (6.0-8.3) gm/dl Albumin (3.4-5.0) gm/dl Globulin (2.5-4.0) gm/dl Albumin/Globulin Ratio (0.9-2)
[2024-01-20] MEDS: LANTUS PER UNIT CHARGE SQ SCH (09:25)
--- NOTE | 2024-01-20 10:38 | Discharge Summary ---
Date of Service January 20, 2024 Admission HPI Per Admitting Provider Barney is an 88-year-old male with a past medical history significant for CKD 3, DM 2, GERD, BPH, MGUS, CVA, atrial fibrillation (on Pradaxa) who presented to the [facility] ED on 01/16/2024 via EMS after sustaining a fall and subsequent right hip pain. He was noted to be hypertensive on arrival at 194/127, tachycardic at 91, but otherwise stable. Labs were significant for a glucose of 240, calcium 8.2, initial high-sensitivity troponin of 31. Chest x- ray was read as negative for acute findings. CT of the head and brain without contrast was read as no acute intracranial hemorrhage. 1 cm left pontine hypodense focus. Artifact is favored however an age-indeterminate infarct appears similar. X-ray of the right hip and pelvis was read as acute minimally displaced intertrochanteric fracture of the right femur. Prior to admission the patient was given 2 doses of 50 mcg IV fentanyl. Patient was lying in bed in no acute distress at time of exam with his bedside, history was obtained from both. Since having his stroke last year the patient has been having ongoing ambulatory dysfunction due to chronic right sided weakness compared to left. His says that they had just returned from a trip from [place], she had parked and was trying to go around the car to assist the patient getting out. While trying to get out of there sedan he tripped and fell. He landed on his right side, did not hit his head or lose consciousness. His states that his last dose of Pradaxa was this morning. At this time his only pain is right hip pain. He denies head, neck, back, chest , abdominal, and left lower extremity pain. 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 We confirmed that he is a full code and his is his power of commonwealth attorney. Please refer to Dr. Valles's attestation for any changes to the treatment plan Admission Exam Per Admitting Provider Physical Exam: General: In no acute distress, stated age, chronically ill appearing but non- toxic HEENT: Normocephalic, atraumatic, no scleral icterus, pupils around round, symmetrical, and reactive to light, dry mucus membranes, trachea midline, no thyromegaly Chest/Pulm: No respiratory distress, symmetrical chest expansion, clear breath sounds throughout Cardiac: irregular rate and rhythm, no murmurs noted Abdomen: Negative for ascites and bruising, normoactive bowel sounds, soft, non- tender to palpation throughout Musculoskeletal: Patient with shortening and external rotation of the RLE, no bruising noted on inspection of the BL hips/pelvis, no other acute trauma on exam Extremities: Radial, dorsalis pedis, and posterior tibial pulses are intact and symmetrical, no edema noted in the BL LE's Skin: See attached pictures of chronic to infections Neuro: Alert and oriented to person, place, month, no focal defects, no tremors noted Psych: No acute distress, calm and cooperative during the exam Principal Diagnosis Right Intertrochanteric Fracture Discharge Exam GENERAL: awake and alert, afebrile, calm, NAD CARDIO: RRR, no r/m/g RESPIRATORY: CTA b/l, normal respiratory effort, no respiratory distress GI: soft, nondistended, nontender EXTREMITIES: no swelling or calf tenderness in b/l LE Discharge Data Allergies Allergy/AdvReac Type Severity Reaction Status Date / Time diazepam Allergy Intermediate rash Verified 01/16/24 19:59 baclofen Allergy Unknown CAN'T Verified 01/16/24 19:59 REMEMBER sulfamethoxazole AdvReac Severe SEE COMMENT Verified 01/16/24 19:59 [From Bactrim] trimethoprim [From Bactrim] AdvReac Severe SEE COMMENT Verified 01/16/24 19:59 morphine AdvReac Intermediate hallucinati Verified 01/16/24 19:59 ons prednisone AdvReac Intermediate INCREASED Verified 01/16/24 21:29 BP, INCREASED BS Consultations 01/16/24 19:50 Consult Orthopedic Surgery Routine ED Decision to Admit Stat Procedures Performed Operation Date: 01/18/24 07:00 Actual Procedures p Right Hip Short Trochanteric Nailing(Right) - Sebas Garrett MD Ordered Studies 01/16/24 18:34 CT head/brain wo con Stat 01/18/24 [place] hip RT 2-3V Routine Hospital Course (1) A-fib: (2) Anticoagulant long-term use: (3) Closed fracture of right hip: (4) Fall: (5) History of CVA (cerebrovascular accident): (6) Wound of foot: (7) Type II diabetes mellitus with complication: (8) BPH with obstruction/lower urinary tract symptoms: (9) HTN (hypertension): Krystina Corley is an 88-year-old male with a past medical history significant for CKD 3, DM 2, GERD, BPH, MGUS, CVA, atrial fibrillation (on Pradaxa) who was admitted due to mechanical fall that resulted in right hip fracture. Closed Right-Hip fracture 2ry to fall // s/p right hip short trochanteric nailing (POD #2) -- Acute, stable Decreased bone density? - Currently stable and pain well controlled Patient to be discharged to [facility] today - Pain control regimen changed to PO with scheduled Tylenol 650 mg, Oxycodone 5 mg for moderate pain, and Oxycodone 10 for severe pain. Held off of NSAIDs due to hx of CKD-III. - Would encourage outpatient evaluation of bone density given fracture from minor fall Right 2nd toe wound -- Chronic, stable Follows podiatry as outpatient - XR of foot showing right second toe soft tissue swelling and equivocal erosion of the distal tuft of the distal phalanx of the right second toe. - Don't see record of noted osteomyelitis in EMR, but consider wound is more chronic - Would consider further evaluation to r/o osteomyelitis either as inpatient or after discharge as patient is stable A-fib -- Chronic, stable Continue Pradaxa and metoprolol after discharge. May start DOAC today. CKD-3 -- Chronic, stable Pre-renal ANA -- Resolved - Baseline Creatinine 1.7; am labs with improved Cr back to baseline after IVF administration - Electrolytes in reference range - Continue outpatient follow up with Nephrology Hx CVA -- Chronic, stable Patient sustained previous CVA approximately 1 year ago, has been on aspirin since Baseline right-sided weakness and problems with swallowing since his stroke Continue Aspirin - Aspiration precautions DM-2 -- Chronic, not at goal Hgb A1c (01/17/24) was 7.5% - Consider glycemic regimen adjustment after discharge HTN -- Chronic, stable Currently stable Continue amlodipine, olmesartan BPH -- Chronic, stable No signs of infection on UA Will discharge today to [facility] for physical therapy. Total Time Total Time Spent Total Time Spent (In Minutes): <30 Discharge Plan Discharge Items Patient Disposition: Transfer Inpatient Rehab Fac Reason For Visit: FALL, RIGHT HIP FRACTURE, ELEVATED TROP Discharge Diagnosis: right intertrochanteric hip fracture Activity: Per Instructions section Non-emergency contact: Primary Care Provider and Surgeon Call non-emergency contact if: you have any medication questions, your pain is not controlled, your temperature is above 101.5, your wound has increased redness and your wound has increased drainage Follow-up/Referrals: Rodríguez Rodriges, [Primary Care Provider] - Sebas Garrett MD [Surgeon] - ( follow-up with Dr. Garrett or his PA in 2 weeks from the day of surgery for your first postoperative visit.) Diet: Carb Consistent or DM2, Low Sodium (2gm) and Other - See Diet Comment Diet Comment: Minced and Moist Addtl Attending Provider Instructions: You were admitted to the hospital after you experienced a fall that resulted in a fracture of your right hip. We spoke with our orthopedic surgeons who took you to surgery to fix your fracture. After your procedure, you were healing well but understandably still had some weakness on your right side. For this reason, we will be discharging you to a facility that will help you with physical therapy for a short while until you are strong enough to go back home. A discharge summary will be sent to your primary care physician to ensure continuity of care. Please bring this discharge summary with you to your next office appointment so that your provider can review it at that time. Follow-up appointments: Make a follow-up appointment with your PCP within the next week. It is very important that you follow up with them shortly after discharge from the hospital. Please follow up with your orthopedic surgeon. For details regarding this follow up appointment, please refer to the section below. Keep all your follow-up appointments as already scheduled. If you cannot make an appointment, notify your provider. CONTACT YOUR PRIMARY CARE PROVIDER if you experience any of the following: Worsening of symptoms Fever, chills, or fatigue Difficulty following your treatment plan, or difficulty taking medications CALL 911 OR GO TO THE EMERGENCY DEPARTMENT if you experience any of the following: Sudden, severe abdominal pain or nausea/vomiting Severe chest pain, or chest pain that radiates (moves) to your jaw or arm Sudden, severe shortness of breath or difficulty breathing Thank you for allowing us to participate in your care. We wish you the best of luck in your recovery! Addtl Flooring Machine Operator Provider Instructions: [facility] DISCHARGE INSTRUCTIONS: HIP FRACTURE SELF CARE INSTRUCTIONS: A. You are to ambulate with a walker or crutches for approximately 6 weeks. B. You are WEIGHT BEARING TOLERATED on your operative lower extremity for at least 6 weeks. C. Wear low heeled shoes with non-slip soles D. Be sure that your floors are free of things that could trip you throw rugs, electrical cords, and small objects. Avoid wet and waxed floors, especially with crutches/walker/cane. E. Try to walk several times a day with rest periods between. F. You may shower 48 hours after surgery and get the incision area wet, but DO NOT soak or submerge incision area in water. (No baths, swimming pools, hot tubs) G. You may have a large, band-aid like dressing over your incision (Aquacel). This will remain on your incision for 7 days, and then can be removed. You CAN shower with this on. If incision is leaking through the dressing, please call the office . H. Do NOT apply soap or any ointment/lotions directly over incision. I. You may use ice as needed to operative site. SPECIAL CARE INSTRUCTIONS: VERY IMPORTANT TO READ AND REVIEW A. You may be at risk for phlebitis or blood clots. a. Wear surgical stockings (DUGLAS hose), if ordered, for 2 weeks after surgery to improve circulation and reduce swelling. b. Continue Dabigitran 150mg po twice a day or as directed. This is your blood thinner. B. There are a few signs you need to watch for after you are home. Call [facility] at [phone] if you experience any of the following: a. If you have a temperature of 101 degrees or higher. b. Sudden increase in pain in your hip not relieved by rest or pain medication. c. Any fluid or drainage from the incision; redness of the incision. d. Shortness of breath or chest pain. d. Unanswered questions or concerns. C. Pain Medication: a. You will be prescribed pain medication upon discharge that should last till your first post-operative appointment. b. If you experience nausea and/or skin rash, discontinue this medication and contact our office for an alternative medication. c. Caution- narcotic pain medication can cause constipation. FOLLOW UP VISIT: Please call [facility] at [phone] to schedule a follow up appointment 10-14 days from the date of your surgery date. Pending Studies at Discharge: No Stand-Alone Forms: My [facility] Skilled Items Patient informed of condition?: Yes DNR: No Discharge Level of Care: Acute rehab Communicable Disease: No Discharge Prognosis: Stable Lines: None Urinary Catheter: No Medications and DC Order Prescriptions: Continued atorvastatin 20 mg tablet 20 mg PO QPM Qty: 90 3RF dabigatran etexilate [Pradaxa] 150 mg capsule 150 mg PO BID 15 Days Qty: 30 2RF dabigatran etexilate 150 mg capsule 150 mg PO BID Qty: 60 3RF Hold Instructions: Backorder (DME) Blood pressure cuff See Rx Instructions .Route .MEDSUPPLY Qty: 1 0RF Rx Instructions: As directed multivitamin [Daily Multi-Vitamin] Tablet 1 tab PO DAILY metoprolol succinate 50 mg tablet extended release 24 hr 50 mg PO DAILY Qty: 90 3RF amlodipine 5 mg tablet 5 mg PO BID Qty: 60 2RF furosemide 20 mg tablet 20 mg PO DAILY Qty: 30 2RF Hold Instructions: Resume on 04/16/23. can resume at discretion of PCP aspirin 81 mg tablet,delayed release (DR/EC) 81 mg PO DAILY insulin lispro [Humalog KwikPen Insulin] 100 unit/mL insulin pen 1 sliding scale dose subcut TID Rx Instructions: 150-200=2U 201-250=4U 251-300=6U 301-350=8U 351-399=10U 400+ call olmesartan 5 mg tablet 5 mg PO DAILY sertraline 50 mg tablet 100 mg PO DAILY solifenacin 5 mg tablet 5 mg PO DAILY tolterodine 2 mg tablet 2 mg PO DAILY triamcinolone acetonide 0.1 % cream 1 applic topical DAILY PRN (Reason: Skin Irritation) omeprazole 20 mg tablet,delayed release (DR/EC) 20 mg PO PM simethicone 125 mg capsule 125 mg PO DAILY PRN (Reason: GAS DISCOMFORT) ascorbic acid (vitamin C) 1,000 mg tablet 1 g PO DAILY cholecalciferol (vitamin D3) 125 mcg (5,000 unit) capsule 125 mcg PO DAILY loratadine [Claritin] 10 mg Tablet 10 mg PO DAILY PRN (Reason: allergies) insulin glargine [Lantus Solostar U-100 Insulin] 100 unit/mL (3 mL) insulin pen 17 unit SUBCUT QPM calcium carbonate [Calcium 600] 600 mg calcium (1,500 mg) Tablet 600 mg PO DAILY albuterol sulfate 90 mcg/actuation HFA aerosol inhaler 1 - 2 inh inhalation .Q4-6HR PRN (Reason: Shortness Of Breath) Rx Instructions: 1-2 puffs inhalation Q4- 6 hours PRN shortness of breath Discharge Orders: Discharge Order (Routine); Ordered 01/20/24 Ordered By: Cleo Bautista/Other Patient Handouts: High Blood Sugar (Hyperglycemia), Managing Type 2 Diabetes Admission Data Admit Date/Time: 01/16/24 21:00 Attending Provider: Aashish Huffman Admit Provider: Glenn Valles Primary Care Provider: Rodríguez Rodriges Other Providers: Dereck Dean; [employer]; Glenn Valles; Vipin Sewell Other Interventions: Discharge Summary Assessment (RN) Last Done: 01/20/24 11:06 Supervising Physician Co-Signing Physician Notes I personally examined the patient and verified all sarmiento points of history and exam, discussed case, and agree with decision making with Dr Coombs for [facility] today - d/w that despite him not being able to stand yet, and despite her wondering if [facility] could maybe take him instead - the biggest factor we can control in his recovery and potential to be independent again is largely getting rehab started as soon as possible. she expresses good understanding. Vitals noted, in general he is awake and alert pleasant no distress. HEENT normocephalic atraumatic mucous membranes moist. Breathing unlabored no accessory muscle use good effort. Skin without rashes pallor or icterus. Does have small ulcerations on toes, the one on the right foot is dressed. 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 PT/OT eval and treat. For rehab placement today. Outpatient bone health workup and management. acute blood loss anemia related to fractures fortunately still quite mild at this timecontinue to monitor. ANA on CKD 3 was likely due to volume lossimproved w fluids - periodic BMP as outpt toe ulceration/x-ray findings possibly consistent with osteomyelitiswould like to obtain records, but it is quite reassuring that he actively follows with foot and ankle surgeryI strongly suspect these are all chronic issues. reached out to his foot and ankle surgeon, awaiting reply (going to rehab, this is still "work in progress" - was locally seeing Dr Henley in [place]) Otherwise as above Resident Activity Tracking Resident Involvement: Resident Care Provided Care Provided: Adult Hospital Medicine
[2024-01-20] MEDS ORDERED: oxyCODONE HCL IR 5 MG TAB (IMMEDIATE RELEASE) PO PRN (11:36)
[2024-01-20] MEDS: oxyCODONE HCL IR 5 MG TAB (IMMEDIATE RELEASE) PO PRN (11:56)
[2024-01-20] MEDS: ACETAMINOPHEN 325 MG TAB PO SCH (11:56)
--- NOTE | 2024-01-20 15:52 | Billing Data ---
Date of Service January 20, 2024 Coding Level of Care Code 13773 IN/OBS DISCH 30 MIN/LESS
== END 2024-01-20 14:26 | DRG 481 ==
LOC: SUATTDRO → ED 18:20 → 2N 21:00 → SUATTDRO 21:00 → 2N 01-17 00:11